=== PATIENT | female | born 1965 | race Caucasian/White ===

== ENCOUNTER 2020-02-18 10:23 | Outpatient (REF) | payer OTHER, SELFPAY ==
[2020-02-18 11:09] LABS: COVID-19 Test Negative (Negative)
== END 2020-02-18 10:24 | disposition home or self-care (01) ==
LOC: HO.LAB 10:23
PROVIDERS: Visit Provider Internal Medicine
DX: Z20.828 Contact with and (suspected) exposure to other viral communicable diseases (principal)
CPT/HCPCS: 87635

== ENCOUNTER 2020-02-22 12:13 | Outpatient (REF) | payer OTHER, SELFPAY | END 2020-02-22 12:14 | disposition home or self-care (01) | LOC: HO.LAB 12:13 | PROVIDERS: Visit Provider Internal Medicine | DX: Z13.89 Encounter for screening for other disorder (principal) ==

== ENCOUNTER 2020-02-24 15:04 | Outpatient (REF) | payer OTHER, SELFPAY ==
[2020-02-24 16:11] LABS: COVID-19 Test Negative (Negative)
== END 2020-02-24 15:05 | disposition home or self-care (01) ==
LOC: HO.LAB 15:04
PROVIDERS: Visit Provider Internal Medicine
DX: Z20.828 Contact with and (suspected) exposure to other viral communicable diseases (principal)
CPT/HCPCS: 87635

== ENCOUNTER 2020-02-26 13:20 | Outpatient (REF) | payer OTHER, SELFPAY | END 2020-02-26 13:21 | disposition home or self-care (01) | LOC: HO.LAB 13:20 | PROVIDERS: Visit Provider Family Medicine | DX: Z11.1 Encounter for screening for respiratory tuberculosis (principal) | CPT/HCPCS: 86481 ==

== ENCOUNTER 2020-02-27 07:34 | Outpatient (REF) | payer OTHER, SELFPAY ==
[2020-02-27 08:11] LABS: COVID-19 Test Negative (Negative)
== END 2020-02-27 07:35 | disposition home or self-care (01) ==
LOC: HO.LAB 07:34
PROVIDERS: Visit Provider Internal Medicine
DX: Z20.828 Contact with and (suspected) exposure to other viral communicable diseases (principal)
CPT/HCPCS: 87635

== ENCOUNTER 2020-04-06 15:05 | Outpatient (REF) | payer OTHER, SELFPAY ==
[2020-04-06 15:30] LABS: COVID-19 Test Negative (Negative); IDNOW Serial# 55D5AD1C
== END 2020-04-06 15:06 | disposition home or self-care (01) ==
LOC: HO.EMPCOV 15:05
PROVIDERS: Visit Provider Internal Medicine
DX: Z20.828 Contact with and (suspected) exposure to other viral communicable diseases (principal)
CPT/HCPCS: 87635; C9803

== ENCOUNTER 2020-04-21 16:39 | Outpatient (REF) | payer OTHER, SELFPAY ==
--- NOTE | 2020-04-21 | XR_ITS ---
EXAMINATION: XR FOOT, LEFT CLINICAL INFORMATION: Contusion. COMPARISON: None TECHNIQUE: AP, lateral, and oblique views of the left foot. FINDINGS: There is an acute fracture of the proximal phalanx of the 5th toe through the diaphyseal metaphyseal junction proximally. There is lateral angulation of the distal fracture fragment with no significant dorsal or ventral angulation. No other fractures are seen. Mild degenerative changes are present at some of the DIP and PIP joints, most marked in the 2nd through 4th digits. XR/XR foot LT min 3V IMPRESSION: Acute fracture proximal phalanx 5th toe. Mild DJD as described above.
== END 2020-04-21 16:40 | disposition home or self-care (01) ==
LOC: HO.XRAY 16:39
PROVIDERS: PCP Nurse Practitioner Primary Care; Visit Provider Nurse Practitioner Primary Care
DX: S90.129A Contusion of unspecified lesser toe(s) without damage to nail, initial encounter (principal)
CPT/HCPCS: 73630

== ENCOUNTER → 2020-04-25 08:58 | Outpatient (BNVA) | payer OTHER, SELFPAY | PROVIDERS: PCP Family Medicine; Visit Provider Physician Assistant | DX: Z76.89 Persons encountering health services in other specified circumstances (principal) ==

== ENCOUNTER 2020-05-13 07:31 | Outpatient (REF) | payer OTHER, SELFPAY ==
[2020-05-13 07:49] LABS: COVID-19 Test Negative (Negative)
== END 2020-05-13 07:32 | disposition home or self-care (01) ==
LOC: HO.EMPCOV 07:31
PROVIDERS: Visit Provider Internal Medicine
DX: Z20.828 Contact with and (suspected) exposure to other viral communicable diseases (principal)
CPT/HCPCS: 36415; 87635; C9803

== ENCOUNTER 2020-05-25 15:23 | Outpatient (REF) | payer OTHER, SELFPAY ==
[2020-05-25 18:23] LABS: TSH reflex Free T4 0.86 mIU/mL (0.32-4.0)
== END 2020-05-25 15:24 | disposition home or self-care (01) ==
LOC: HO.LAB 15:23
PROVIDERS: PCP Family Medicine; Visit Provider Family Medicine
DX: E03.9 Hypothyroidism, unspecified (principal)
CPT/HCPCS: 36415; 84443

== ENCOUNTER → 2020-06-24 15:22 | Outpatient (BNV) | payer OTHER, SELFPAY | PROVIDERS: PCP Family Medicine; Visit Provider Internal Medicine Medical Oncology | DX: C50.911 Malignant neoplasm of unspecified site of right female breast (principal) | CPT/HCPCS: 99213; 99214 ==

== ENCOUNTER 2020-10-25 13:27 | Outpatient (REF) | payer OTHER, SELFPAY ==
--- NOTE | ~2020-10-25 | CT_ITS ---
EXAMINATION: CT CHEST WITHOUT CONTRAST CLINICAL INFORMATION: Pulmonary nodule COMPARISON: Previous chest CT most recent September 2019 and abdominal and pelvic CT scan December 2017 TECHNIQUE: Multidetector volumetric CT imaging of the chest was done. Axial MIP volume rendering provided. Sagittal and coronal reformatted images were obtained. This CT examination was performed using dose optimization techniques as appropriate, variously including the following: *Automated exposure control *Adjustment of mA and/or kV according to patient size (this includes techniques or standardized protocols for targeted exams where dose is matched to indication/reason for exam; i.e. 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 There is increased peripheral reticular markings in the anterior right upper and right middle lobes probably related to previous chest wall radiation. The pulmonary nodules are stable. Largest pulmonary nodule is a 6 mm peripheral or subpleural right lower lobe nodule axial image 212 series 7 and peripheral or subpleural 6 mm left lower lobe nodule axial image 354 series 7. Pulmonary nodule MEDIASTINUM: The mediastinum is normal. PLEURA: There is no pleural effusion. No pleural mass or thickening. AXILLA: There are bilateral breast implants. No chest wall mass or enlarged axillary lymph nodes are seen. UPPER ABDOMEN: There is a small 5 mm low-attenuation lesion in the lateral segment of the left lobe of the liver axial image 64 series 3 that is stable. OSSEOUS STRUCTURES: There is curvature of spine to the right mild degenerative changes. CT/CT chest wo con IMPRESSION: Stable pulmonary nodules.
[2020-10-25 15:25] LABS: MANUAL DIFF FLAG NO
[2020-10-25 15:29] LABS: Basophils Absolute Auto 0.1 X10*3/uL (0.0-0.2); Basophils Percent Auto 1.2 % (0-2); Eosinophils Absolute Auto 0.2 X10*3/uL (0.0-0.4); Eosinophils Percent Auto 3.2 % (0-4); Hematocrit 42.1 % (37-47); Hemoglobin 13.8 g/dl (12.0-16.0); Imm Gran Abs Auto 0.01 X10*3/uL (0.00-0.03); Imm Gran Pct Auto 0.2 % (0.0-0.4); Lymphocytes Absolute Auto 2.1 X10*3/uL (1.2-4.9); Lymphocytes Percent Auto 32.3 % (20-40); Mean Corpuscular HGB Conc 32.8 g/dl (31.0-35.0); Mean Corpuscular Hemoglobin 29.1 pg (27.0-33.0); Mean Corpuscular Volume 88.8 fL (80-98); Mean Platelet Volume 10.7 fL (9.4-12.3); Monocytes Absolute Auto 0.5 X10*3/uL (0.1-1.2); Monocytes Percent Auto 6.9 % (2-11); Neutrophils Absolute Auto 3.7 X10*3/uL (2.0-8.3); Neutrophils Percent Auto 56.2 % (45-73); Platelet Count 208 X10*3/uL (160-400); Red Blood Count 4.74 X10*6/uL (4.20-5.50); Red Cell Distribution Width 12.1 % (11.0-16.0); White Blood Count 6.6 X10*3/uL (4.8-10.8)
[2020-10-25 15:47] LABS: Alanine Aminotransferase 16 U/L (0-31); Albumin Level 4.6 g/dL (3.5-5.0); Alkaline Phosphatase 61 U/L (39-117); Aspartate Amino Transferase 19 U/L (5-31); Bilirubin Total 0.5 mg/dL (0.0-1.0); Blood Urea Nitrogen 14 mg/dL (9-16); Calcium 9.6 mg/dL (8.4-10.2); Estimated Glomerular Filt Rate > 60; Glucose Random 85 mg/dL (60-115)
[2020-10-25 16:00] LABS: Anion Gap 13 (12-20); Carbon Dioxide 26 mmol/L (22-29); Chloride 105 mmol/L (96-108); Sodium 140 mmol/L (135-145)
[2020-10-25 16:10] LABS: Free T4 (Free Thyroxine) 1.13 ng/dL (0.71-1.85); Thyroid Stimulating Hormone 0.66 uIU/mL (0.32-4.0)
[2020-10-26 09:31] LABS: Thyroglobulin Antibodies <1 IU/mL (< or = 1); Thyroid Peroxidase Antibodies <1 IU/mL (<9)
[2020-10-26 18:06] LABS: Immunoglobulin E 34 kU/L (<OR=114)
[2020-10-26 20:07] LABS: Gliadin Deamidated IgA Ab 5 Units; Gliadin Deamidated IgG Ab 1 Units
[2020-10-28 16:41] LABS: Transglutaminase IgA 1 U/mL
[2020-11-02 17:23] LABS: Histamine Release <16 % (<16); TSH 1.15 mIU/L (0.40-4.50); Thyroglobulin Abs <1 IU/mL (< OR = 1)
== END 2020-10-25 13:28 | disposition home or self-care (01) ==
LOC: HO.CT 13:27
PROVIDERS: Absent Provider Nurse Practitioner Family; PCP Family Medicine; Visit Provider Family Medicine
DX: R91.8 Other nonspecific abnormal finding of lung field (principal)
CPT/HCPCS: 36415; 71250; 80053; 82785; 83516; 83520; 84439; 84443; 85025; 86003; 86343; 86376; 86800

== ENCOUNTER 2020-11-04 09:54 | Day surgery (SDC) | payer OTHER, SELFPAY ==
[2020-10-31 10:26] VITALS: BMI 25.0
[2020-10-31 10:38] VITALS: BMI 25.0
--- NOTE | 2020-11-03 12:02 | HO.ANESPROP2 ---
Documented by User: Leena Aleah 11/03/20 12:03 HPI - Anesthesia Eval Consult details Narrative: 54yo F for Colonoscopy PMFSH Active Problems Active Problems: All Active Problems (Updated 10/31/20 @ 10:39 by Juli Varner) Fracture of 5th metatarsal (Acute) Triple negative malignant neoplasm of breast (Acute) Osteoporosis (Acute) Past Medical History Medical History Breast cancer COVID-19 vaccine administered Depression GERD (gastroesophageal reflux disease) History of breast cancer Hypothyroid Surgical History Surgical History H/O colonoscopy History of arthroplasty of left knee History of esophagogastroduodenoscopy (EGD) Hx of appendectomy Hx of bilateral mastectomy Hx of breast reconstruction Hx of cataract extraction Hx of tonsillectomy Social History Social History Are you a primary director of home care hospice to a significant other at home: No Do you presently have visiting nurse or other home services: No Patient Tobacco Use Status: Former Tobacco user Quit Date: 2008 Tobacco use type: Cigarette Use of substances other than those prescribed or required for medical reasons: No Are you DNR?: No Advance Directives Information Provided: No Recently lost weight without trying: No Eating poorly because of decreased appetite: No Nutrition Risks: No Nutritional Risk Patient : No Current occupation: [employer] Meds Allergies Allergy/AdvReac Type Severity Reaction Status Date / Time amoxicillin [AMOXICILLIN] Allergy Intermediate hives/rash Verified 11/04/20 10:47 Penicillins [PENICILLINS] Allergy Intermediate hives/rash Verified 11/04/20 10:47 Home Medications Medication Instructions Recorded Confirmed Last Taken Type albuterol sulfate 90 mcg INHALATION NEEDED 06/24/20 10/31/20 Unknown History budesonide-formoterol [Symbicort] 2 puff INHALATION BID PRN 06/24/20 10/31/20 Unknown History cetirizine 1 tab PO DAILY 06/24/20 07/01/20 Unknown History citalopram 20 mg PO DAILY 06/24/20 10/31/20 Unknown History levothyroxine 1 tab PO DAILY 06/24/20 10/31/20 11/04/20 07:00 History omeprazole 1 cap PO DAILY 0210/31/20 11/04/20 07:00 History trazodone 1 tab PO BEDTIME 06/24/20 10/31/20 Unknown History famotidine 1 tab PO BID 10/31/20 10/31/20 11/04/20 07:00 History loratadine 10 mg PO DAILY 10/31/20 10/31/20 Unknown History Exam Exam Date and Time: November 03, 2020 1202 Height,Weight and Vital Signs: Height 5 ft 7 in Weight 72.575 kg Pertinent Lab Results Pertinent Lab Results: Laboratory Tests 10/25/20 10/25/20 14:55 14:55 WBC 6.6 Hgb 13.8 Hct 42.1 Plt Count 208 Sodium 140 Potassium 4.0 Chloride 105 Carbon Dioxide 26 BUN 14 Creatinine 0.84 Assessment and Plan Assessment Anesthesia Assessment: Chart Reviewed Documented by User: Opal Stout 11/04/20 11:40 PMFSH Past Medical History Medical History Breast cancer COVID-19 vaccine administered Depression GERD (gastroesophageal reflux disease) History of breast cancer Hypothyroid Surgical History Surgical History H/O colonoscopy History of arthroplasty of left knee History of esophagogastroduodenoscopy (EGD) Hx of appendectomy Hx of bilateral mastectomy Hx of breast reconstruction Hx of cataract extraction Hx of tonsillectomy Social History Social History Are you a primary director of home care hospice to a significant other at home: No Do you presently have visiting nurse or other home services: No Patient Tobacco Use Status: Former Tobacco user Quit Date: 2008 Tobacco use type: Cigarette Use of substances other than those prescribed or required for medical reasons: No Are you DNR?: No Advance Directives Information Provided: No Recently lost weight without trying: No Eating poorly because of decreased appetite: No Nutrition Risks: No Nutritional Risk Patient : No Current occupation: [employer] Meds Allergies Allergy/AdvReac Type Severity Reaction Status Date / Time amoxicillin [AMOXICILLIN] Allergy Intermediate hives/rash Verified 11/04/20 10:47 Penicillins [PENICILLINS] Allergy Intermediate hives/rash Verified 11/04/20 10:47 Home Medications Medication Instructions Recorded Confirmed Last Taken Type albuterol sulfate 90 mcg INHALATION NEEDED 06/24/20 10/31/20 Unknown History budesonide-formoterol [Symbicort] 2 puff INHALATION BID PRN 06/24/20 10/31/20 Unknown History cetirizine 1 tab PO DAILY 06/24/20 07/01/20 Unknown History citalopram 20 mg PO DAILY 06/24/20 10/31/20 Unknown History levothyroxine 1 tab PO DAILY 06/24/20 10/31/20 11/04/20 07:00 History omeprazole 1 cap PO DAILY 06/24/20 10/31/20 11/04/20 07:00 History trazodone 1 tab PO BEDTIME 06/24/20 10/31/20 Unknown History famotidine 1 tab PO BID 10/31/20 10/31/20 11/04/20 07:00 History loratadine 10 mg PO DAILY 10/31/20 10/31/20 Unknown History Exam Airway Mallampati Class: I TM Dist: >3cm Neck ROM: Full Loose/Missing/Broken Teeth: No Heart: RRR Lungs: CTA Assessment and Plan Assessment Anesthesia Assessment: Anesthesia Plan Discussed and Chart Reviewed Final Anesthetic Review NPO: Yes ASA Class: II Final Preanesthetic Review: Meds/Allgs Chart Reviewed, Consent Obtained/Reviewed and Anes Risks/Benef Reviewed Patient Risk: Low Procedure Risk: Low Anesthetic Plan Anesthetic Plan: MAC: Disposition: Standard PACU
[2020-11-04 10:47] VITALS: BP 119/69; PULSE 68; RESP 18; TEMP 36.1; O2SAT 98
[2020-11-04] MEDS: Lactated Ringers 1,000 ML 100 ML IVCONT (10:58)
[2020-11-04 12:43] VITALS: BP 97/54; PULSE 61; RESP 14; TEMP 36.1; O2SAT 98
--- NOTE | 2020-11-04 12:43 | P.BOP_ITS ---
Brief Operative Note Date of Service: 11/04/20 Pre-op diagnosis: Rectal bleeding. Hx of tubular adenoma Post-op diagnosis: other (Colon polyp, Internal hemorrhoids) Procedure: Colonoscopy to the cecum and TI with bx/removal of polyp. Surgeon: Kali Neri Anesthesia: MAC Was an Carbon Sequestration Plant Operator used for this Procedure?: No Estimated blood loss (mL): 3.0 Pathology: other (A. Polyp at 30cm) Condition: stable Disposition: PACU
[2020-11-04 12:57] VITALS: BP 118/69; PULSE 58; RESP 16; TEMP 36.1; O2SAT 99
--- NOTE | 2020-11-04 13:04 | OP_ITS ---
SURGEON: Kali Neri MD INDICATIONS: The patient presents for evaluation of personal history of tubular adenoma of the colon and hematochezia. Full consent has been obtained from her for this, including risks of bleeding and perforation. PREOPERATIVE DIAGNOSIS: POSTOPERATIVE DIAGNOSIS: PROCEDURE PERFORMED: Colonoscopy to cecum and terminal ileum with biopsy and removal of polyp. ESTIMATED BLOOD LOSS: COMPLICATIONS: ANESTHESIA: Monitored anesthesia care. ASSISTANTS: SPECIMENS: PREOPERATIVE DIAGNOSES: Personal history of tubular adenoma of the colon and rectal bleeding. POSTOPERATIVE DIAGNOSES: Personal history of tubular adenoma of the colon and rectal bleeding, small colon polyp, occasional sigmoid diverticulosis, and internal hemorrhoids. DESCRIPTION OF PROCEDURE: The digital rectal exam revealed no abnormalities. The Olympus video pediatric colonoscope was entered into the rectum and advanced easily to the cecum. Once in the cecum, I did identify normal-appearing cecal pouch with appendiceal orifice and a normal-appearing ileocecal valve. The terminal ileum was cannulated and appeared normal. Scope was withdrawn back in the colon. The entire cecum and ileocecal valve appeared normal. The scope was then slowly withdrawn assessing all mucosal surfaces carefully. Preparation was excellent. At 30 cm, was a flat approximately 5 mm probable adenomatous polyp, which was biopsied and completely removed with cold biopsy forceps. I did not visualize any other polyps, colitis, nor angiodysplasia. There were occasional diverticula in the sigmoid colon. In the rectum, scope was retroflexed visualizing internal hemorrhoids, but no other pathology. The rectal mucosa appeared normal. The scope was straightened out and withdrawn from the patient. She tolerated the procedure well and was returned to the recovery area in stable condition. IMPRESSION: 1. Small colon polyp, status post biopsy and removal. 2. Internal hemorrhoids. 3. Occasional sigmoid diverticulosis. PLAN: The results of the biopsy will be checked. I would recommend a repeat colonoscopy in 5 years for further screening. She will otherwise see me on a p.r.n. basis. MD SILVIO Marie/MARIPOSA / [phone]
== END 2020-11-04 13:43 | disposition home or self-care (01) ==
PROVIDERS: PCP Family Medicine; Visit Provider Internal Medicine
PROC: 0DJD8ZZ Inspection of Lower Intestinal Tract, Via Natural or Artificial Opening Endoscopic (ICD-10-PCS; CPT 45378; principal; 2020-11-04 10:40)
DX: K92.1 Melena (principal); Z86.010 Personal history of colon polyps; D12.5 Benign neoplasm of sigmoid colon; K57.30 Diverticulosis of large intestine without perforation or abscess without bleeding; K64.8 Other hemorrhoids; K59.00 Constipation, unspecified; K21.9 Gastro-esophageal reflux disease without esophagitis; E03.9 Hypothyroidism, unspecified; Z85.3 Personal history of malignant neoplasm of breast; Z79.899 Other long term (current) drug therapy; Z88.0 Allergy status to penicillin; Z87.891 Personal history of nicotine dependence
CPT/HCPCS: 45380; 88305

== ENCOUNTER 2021-05-18 10:27 | Outpatient (REF) | payer OTHER, SELFPAY ==
--- NOTE | ~2021-05-18 | XR_ITS ---
EXAMINATION: XR CHEST CLINICAL INFORMATION: Chest pain COMPARISON: Previous chest x-ray August [address] October 2020 TECHNIQUE: 2 views of the chest were obtained. FINDINGS: The cardiac and mediastinal contours are stable. The lungs are well inflated. There are increased markings in the right upper lobe that appear unchanged. The lungs are otherwise clear. There is no pleural effusion or pneumothorax. There are bilateral surgical clips. There are mild degenerative changes of the spine and curvature of the proximal thoracic spine to the left. XR/XR chest 2V IMPRESSION: No evidence for acute disease in the chest. Well-inflated lungs. Chronic increased markings right upper lobe similar to previous exams.
[2021-05-18 10:42] LABS: MANUAL DIFF FLAG NO
[2021-05-18 11:29] LABS: Basophils Absolute Auto 0.1 X10*3/uL (0.0-0.2); Basophils Percent Auto 1.2 % (0-2); Eosinophils Absolute Auto 0.2 X10*3/uL (0.0-0.4); Eosinophils Percent Auto 3.4 % (0-4); Hemoglobin 13.3 g/dl (12.0-16.0); Imm Gran Abs Auto 0.02 X10*3/uL (0.00-0.03); Imm Gran Pct Auto 0.3 % (0.0-0.4); Lymphocytes Absolute Auto 2.1 X10*3/uL (1.2-4.9); Lymphocytes Percent Auto 35.7 % (20-40); Mean Corpuscular HGB Conc 32.4 g/dl (31.0-35.0); Mean Corpuscular Hemoglobin 29.2 pg (27.0-33.0); Mean Corpuscular Volume 90.1 fL (80.0-98.0); Mean Platelet Volume 10.4 fL (9.4-12.3); Monocytes Absolute Auto 0.4 X10*3/uL (0.1-1.2); Monocytes Percent Auto 6.7 % (2-11); Neutrophils Absolute Auto 3.1 x10*3/uL (2.0-8.3); Neutrophils Percent Auto 52.7 % (45-73); Platelet Count 229 X10*3/uL (160-400); Red Blood Count 4.55 X10*6/uL (4.20-5.50); White Blood Count 5.9 X10*3/uL (4.8-10.8)
[2021-05-18 12:08] LABS: TSH reflex Free T4 0.89 uIU/mL (0.32-4.0)
[2021-05-18 12:12] LABS: Procalcitonin < 0.02 ng/mL
[2021-05-18 12:16] LABS: Vitamin B12 418 pg/mL (200-900)
== END 2021-05-18 10:28 | disposition home or self-care (01) ==
LOC: HO.XRAY 10:27
PROVIDERS: Absent Provider Family Medicine; PCP Family Medicine; Visit Provider Family Medicine
DX: R07.1 Chest pain on breathing (principal); M79.10 Myalgia, unspecified site; E03.9 Hypothyroidism, unspecified; R53.81 Other malaise; R53.83 Other fatigue
CPT/HCPCS: 36415; 71046; 82607; 84145; 84443; 85025

== ENCOUNTER 2021-06-02 13:54 | Outpatient (REF) | payer OTHER, SELFPAY ==
--- NOTE | ~2021-06-02 | US_ITS ---
EXAMINATION: US DIAGNOSTIC ULTRASOUND BREAST, LEFT CLINICAL INFORMATION: Left breast pain. Status post bilateral mastectomies with bilateral breast implants. COMPARISON: CT scan of 10/25/2020 and breast ultrasound studies of 01/28/2020 and 04/01/2019. TECHNIQUE: Ultrasound of the breast is performed with real-time batres scale imaging and color Doppler. FINDINGS: The patient is status post left breast mastectomy with implant in place. In region of patient's pain, no suspicious cystic or solid mass is identified. There is noted to be a lymph node measuring approximately 1.4 x 0.8 cm in size with mild cortical lobulation which while scanning in real-time is not very prominent. This is similar in appearance to previous examination of 04/01/2019 and 01/28/2020. The cortex is less than 3 mm in diameter. The fatty hilum appears unremarkable. No implant rupture is appreciated. In region of increasing prominence about the anterior skin overlying the implant, there is no abnormal soft tissue mass. Results are discussed with the patient at time of visit. US/US breast LT limited IMPRESSION: No significant change in appearance compared to previous ultrasound studies without suspicious abnormal mass being appreciated. Stable-appearing left axillary lymph node. ASSESSMENT: BI-RADS 1: Negative. RECOMMENDATION: Clinical followup.
== END 2021-06-02 13:55 | disposition home or self-care (01) ==
LOC: HO.MAMMO 13:54
PROVIDERS: PCP Family Medicine; Visit Provider Internal Medicine Medical Oncology
DX: N64.4 Mastodynia (principal); Z85.3 Personal history of malignant neoplasm of breast; Z90.13 Acquired absence of bilateral breasts and nipples; Z98.82 Breast implant status
CPT/HCPCS: 76642

== ENCOUNTER 2021-06-16 12:47 | Outpatient (REF) | payer OTHER, SELFPAY ==
--- NOTE | ~2021-06-16 | US_ITS ---
EXAMINATION: US DIAGNOSTIC ULTRASOUND BREAST, RIGHT CLINICAL INFORMATION: Patient status post bilateral mastectomies with reconstruction with implants. COMPARISON: June 02, 2021. Right breast lump present in the mid breast. TECHNIQUE: Ultrasound of the breast is performed with real-time batres scale imaging and color Doppler. FINDINGS: There is no focal suspicious finding. Implant is noted intact. Region of palpable abnormality appears to correspond to implant valve. Results are discussed with the patient at time of visit. US/US breast RT limited IMPRESSION: No suspicious right breast/implant abnormality. Palpable region appears to correspond to implant valve. ASSESSMENT: BI-RADS 1: Negative RECOMMENDATION: Clinical follow-up.
== END 2021-06-16 12:48 | disposition home or self-care (01) ==
LOC: HO.MAMMO 12:47
PROVIDERS: Absent Provider Plastic Surgery; Visit Provider Internal Medicine Medical Oncology
DX: N63.15 Unspecified lump in the right breast, overlapping quadrants (principal)
CPT/HCPCS: 76642

== ENCOUNTER 2021-11-16 15:34 | Outpatient (REF) | payer OTHER, SELFPAY ==
--- NOTE | ~2021-11-16 | CT_ITS ---
EXAMINATION: CT CHEST WITHOUT CONTRAST CLINICAL INFORMATION: Multiple pulmonary nodules COMPARISON: CT chest 10/25/2020 TECHNIQUE: Multidetector volumetric CT imaging of the chest was done. Axial MIP volume rendering provided. Sagittal and coronal reformatted images were obtained. This CT examination was performed using dose optimization techniques as appropriate, variously including the following: *Automated exposure control *Adjustment of mA and/or kV according to patient size (this includes techniques or standardized protocols for targeted exams where dose is matched to indication/reason for exam; i.e. 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 LUNGS: There are small bilateral anteroapical bullous changes slightly larger on the left. There is mild centrilobular emphysema again prominent in the upper lobes. There are prominent peripheral reticular markings in anterior aspect of right upper lobe and right middle lobe likely related to postradiation changes. There are bilateral pulmonary nodules. The largest 6 mm nodule pleural-based right lower lobe axial image 21/4, 7 mm pleural-based nodule left lower lobe axial image 272/9 and lingular base atelectasis imaged 398/9. MEDIASTINUM: The thyroid lobes are not in the [id number]. Central trachea and the bronchi are normal. Heart size and the great vessels are normal caliber. There is no abnormal size mediastinal or hilar lymph nodes. PLEURA: There is no pleural effusion. No pleural mass or thickening. AXILLA: There are small shotty lymph nodes in the axilla. UPPER ABDOMEN: Visualized liver, spleen and pancreas unremarkable. OSSEOUS STRUCTURES: There is no lytic or sclerotic process seen. CT/CT chest wo con IMPRESSION: Stable bilateral pulmonary nodules. No new nodules seen. Postradiation changes anterior segment right upper lobe and right middle lobe are stable. Fleischner guidelines were followed.
== END 2021-11-16 15:35 | disposition home or self-care (01) ==
LOC: HO.CT 15:34
PROVIDERS: PCP Family Medicine; Visit Provider Family Medicine
DX: R91.8 Other nonspecific abnormal finding of lung field (principal)
CPT/HCPCS: 71250

== ENCOUNTER 2022-01-18 19:00 | Emergency (ER) | payer OTHER, SELFPAY ==
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
--- NOTE | ~2022-01-18 | XR_ITS ---
EXAMINATION: XR KNEE, LEFT XR KNEE, RIGHT CLINICAL INFORMATION: Fall with knee pain COMPARISON: 11/02/2019 TECHNIQUE: 4 views of the left knee. 4 views of the right knee. FINDINGS: Left knee: Tricompartmental medial compartment arthroplasty with intact hardware in appropriate alignment. Chondrocalcinosis at the lateral compartment. No joint effusion. No acute fracture. Right knee: No acute fracture or subluxation. Mild medial compartment joint space narrowing with chondrocalcinosis. Small marginal osteophytes at the patellofemoral compartment. No joint effusion. XR/XR knee LT 4V IMPRESSION: No acute osseous abnormality of either knee. Chondrocalcinosis. Left knee hardware without evidence of failure.
--- NOTE | ~2022-01-18 | XR_ITS ---
EXAMINATION: XR KNEE, LEFT XR KNEE, RIGHT CLINICAL INFORMATION: Fall with knee pain COMPARISON: 11/02/2019 TECHNIQUE: 4 views of the left knee. 4 views of the right knee. FINDINGS: Left knee: Tricompartmental medial compartment arthroplasty with intact hardware in appropriate alignment. Chondrocalcinosis at the lateral compartment. No joint effusion. No acute fracture. Right knee: No acute fracture or subluxation. Mild medial compartment joint space narrowing with chondrocalcinosis. Small marginal osteophytes at the patellofemoral compartment. No joint effusion. XR/XR knee RT 4V IMPRESSION: No acute osseous abnormality of either knee. Chondrocalcinosis. Left knee hardware without evidence of failure.
[2022-01-18] MEDS: Morphine Sulfate 4 MG/ML CARTRIDGE IVPUSH (19:08)
[2022-01-18] MEDS: oxyCODONE HCl Immed Release 5 MG TABLET PO (19:43)
[2022-01-18 19:47] VITALS: BP 123/74; PULSE 71; RESP 18; TEMP 37; O2SAT 96; BMI 26.1
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
== END 2022-01-18 20:53 | disposition home or self-care (01) ==
PROVIDERS: Emergency Provider Emergency Medicine; PCP Family Medicine
DX: S42.301A Unspecified fracture of shaft of humerus, right arm, initial encounter for closed fracture (principal); S89.91XA Unspecified injury of right lower leg, initial encounter; M25.511 Pain in right shoulder; M25.562 Pain in left knee; M25.561 Pain in right knee; Y04.2XXA Assault by strike against or bumped into by another person, initial encounter; Y93.9 Activity, unspecified; Y92.9 Unspecified place or not applicable; Y99.0 Civilian activity done for income or pay; Z79.899 Other long term (current) drug therapy; Z87.891 Personal history of nicotine dependence
CPT/HCPCS: 29105; 29505; 73030; 73564; 96374; 99283; 99284; J2270

== ENCOUNTER → 2022-01-19 13:53 | Outpatient (BNVA) | payer OTHER, SELFPAY | PROVIDERS: PCP Family Medicine; Visit Provider Physician Assistant | DX: Z13.89 Encounter for screening for other disorder (principal) | CPT/HCPCS: 99203 ==

== ENCOUNTER → 2022-01-22 08:55 | Outpatient (BNVA) | payer OTHER, SELFPAY | PROVIDERS: PCP Family Medicine; Visit Provider Orthopaedic Surgery | DX: S42.251A Displaced fracture of greater tuberosity of right humerus, initial encounter for closed fracture (principal) | CPT/HCPCS: 99212 ==

== ENCOUNTER 2022-02-01 16:46 | Outpatient (REF) | payer OTHER, SELFPAY ==
--- NOTE | ~2022-02-01 | XR_ITS ---
EXAMINATION: XR SHOULDER, RIGHT CLINICAL INFORMATION: Follow-up displaced fracture of the greater tuberosity of the proximal right humerus. COMPARISON: Prior radiographs, most recently 01/18/2022. TECHNIQUE: A frontal view of the right shoulder are submitted. FINDINGS: Bony mineralization is normal. A mildly displaced and comminuted fracture is redemonstrated of the greater tuberosity proximal right humerus. Alignment is stable, and there is no new significant callus formation. No dislocation is seen. The glenohumeral joint is intact. The acromioclavicular and coracoclavicular intervals are normal. No soft tissue calcification foreign body is seen. There is no left pneumothorax. There are right axillary surgical clips. XR/XR shoulder RT 1V IMPRESSION: There is stable alignment of a mildly displaced and comminuted fracture of the greater tuberosity of the proximal right humerus. No new significant callus formation is noted.
== END 2022-02-01 16:47 | disposition home or self-care (01) ==
LOC: HO.HOSX 16:46
PROVIDERS: Visit Provider Orthopaedic Surgery
DX: S42.251A Displaced fracture of greater tuberosity of right humerus, initial encounter for closed fracture (principal); X58.XXXA Exposure to other specified factors, initial encounter; Y93.9 Activity, unspecified; Y92.9 Unspecified place or not applicable; Y99.8 Other external cause status
CPT/HCPCS: 73020; 99212

== ENCOUNTER 2022-03-01 08:54 | Outpatient (REF) | payer OTHER, SELFPAY ==
--- NOTE | ~2022-03-01 | XR_ITS ---
EXAMINATION: XR SHOULDER, RIGHT CLINICAL INFORMATION: Shoulder pain COMPARISON: 01/18/2022 and 02/01/2022 TECHNIQUE: Three views of the right shoulder. FINDINGS: Interval increased sclerosis/healing response along the fracture line of the humeral neck. The fracture lucency is become less conspicuous. The slightly comminuted greater tuberosity fragment remains laterally displaced by approximately 0.4 cm, unchanged, and there is early callus formation at fracture margins but no visible solid bridging bone formation between the greater tuberosity and underlying humerus. Alignment is maintained at the glenohumeral and acromioclavicular joints. XR/XR shoulder RT min 2V IMPRESSION: Currently, there is mild, incomplete healing of the comminuted proximal humerus fracture. Alignment is maintained at the glenohumeral and acromioclavicular joints.
== END 2022-03-01 08:55 | disposition home or self-care (01) ==
LOC: HO.HOSX 08:54
PROVIDERS: Visit Provider Orthopaedic Surgery
DX: S42.251D Displaced fracture of greater tuberosity of right humerus, subsequent encounter for fracture with routine healing (principal)
CPT/HCPCS: 73030; 99212

== ENCOUNTER 2022-04-12 11:06 | Outpatient (REF) | payer OTHER, SELFPAY ==
--- NOTE | ~2022-04-12 | XR_ITS ---
EXAMINATION: XR SHOULDER, RIGHT CLINICAL INFORMATION: Pain COMPARISON: Right shoulder 03/01/2022 TECHNIQUE: AP external rotation, Grashey, scapular Y, and axillary views of the right shoulder. FINDINGS: There is a nondisplaced fracture along the greater tuberosity right humerus with very little callus. The glenohumeral joint space is preserved. There is loss of right AC joint space. No additional abnormality seen. XR/XR shoulder RT min 2V IMPRESSION: 1. Nondisplaced fracture greater tuberosity right humerus with very little callus formation. No change from previous exam 02/01/2022. 2. Mild degenerative changes right AC. joint.
== END 2022-04-12 11:07 | disposition home or self-care (01) ==
LOC: HO.HOSX 11:06
PROVIDERS: Visit Provider Orthopaedic Surgery
DX: M25.511 Pain in right shoulder (principal)
CPT/HCPCS: 73030

== ENCOUNTER 2022-05-24 10:40 | Outpatient (REF) | payer OTHER, SELFPAY ==
--- NOTE | ~2022-05-24 | XR_ITS ---
EXAMINATION: XR SHOULDER, RIGHT CLINICAL INFORMATION: Right shoulder pain COMPARISON: 04/12/2022 TECHNIQUE: Three views of the right shoulder. FINDINGS: No change in the appearance or alignment of the comminuted humeral head fracture with appears to be predominantly healed. No malalignment. Mild degenerative findings. XR/XR shoulder RT min 2V IMPRESSION: No change in the appearance or alignment of the comminuted humeral head fracture which is predominantly healed, improved since 03/01/2022. CT could assess for percentage of osseous bridging if indicated.
== END 2022-05-24 10:41 | disposition home or self-care (01) ==
LOC: HO.HOSX 10:40
PROVIDERS: Visit Provider Orthopaedic Surgery
DX: S42.251D Displaced fracture of greater tuberosity of right humerus, subsequent encounter for fracture with routine healing (principal)
CPT/HCPCS: 73030

== ENCOUNTER 2022-06-19 14:42 | Outpatient (REF) | payer OTHER, SELFPAY ==
[2022-06-19 16:15] LABS: Thyroid Stimulating Hormone 1.36 uIU/mL (0.32-4.0)
== END 2022-06-19 14:43 | disposition home or self-care (01) ==
LOC: HO.LAB 14:42
PROVIDERS: PCP Family Medicine; Visit Provider Family Medicine
DX: E03.9 Hypothyroidism, unspecified (principal)
CPT/HCPCS: 36415; 84443

== ENCOUNTER 2022-06-28 16:00 | Outpatient (RCR) | payer OTHER, SELFPAY ==
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
--- NOTE | 2022-02-28 14:24 | MHC.PT.PR ---
[facility] [place] Office [place] Office [place] Office [address] Nelli Montiel [address] [phone] F: [phone] F: [phone] F: [phone] F: [phone] Physical Therapy Progress Note Diagnosis: displaced fx of greater tuberosity R humerus Date of Surgery: Date of Evaluation: 02/15/22 Treatments to Date: 5 Cancellations to Date: 0 No Shows to Date: Subjective: Her lymedema is bothering her more and wrapping around ribs/serratus region. SHe had difficulty sleeping due to this swelling. SHe sees Dr. Root tomorrow Pain Score and Location: 3-4 R shoulder Objective Measures: PROM: ER 18*, ABD 45*, FLEX 78* Assessment: She is making gradual progress in regards to PROM. PROM appears to be most limited by lymphedema exacerbation due to traumatic injury. Due to lypmphedema, asked Kylah Prieto OT,CHT for consult. She recommended that pt would benefit from 'tactile mechanical sequential compression pump' and 'Juxalite arm sleeve with gauntlet with velcro closure to facilitate lymph drainage and assist with return to function. PT Plan: Continue with PT Frequency and Duration: The patient will be seen 2x/week for 6 weeks Treatment Plan: Therapeutic Exercise Dynamic Therapeutic Activities Neuromuscular Re-ed Manual Therapies Taping Home Exercise Program Patient Education Hot or Cold Pack Reviewed/ Agreed with Student Documentation: Therapist: Thank you once again for your referral.
--- NOTE | 2022-08-08 11:19 | MHC.PT.DC ---
[facility] [place] Office [place] Office [place] Office [address] Nelli Montiel [address] [phone] F: [phone] F: [phone] F: [phone] F: [phone] Physical Therapy Discharge Report Diagnosis: displaced fx of greater tuberosity R humerus Date of Surgery: Date of Evaluation: 02/15/22 Date of Discharge: 08/08/22 Treatments to Date: 32 Cancellations to Date: 5 No Shows to Date: Discharge Status: Achieved Goals Improved Function Independent with HEP Discharge Summary: Pt made good progress with PT demonstrating improved shoulder AROM, strength and functional mobility. She is I with HEP and d/c from PT. Electronically signed by: Karina Gibbs PT, DPT Please sign and return to therapist. Thank you for your referral.
== END 2022-08-08 11:20 | disposition home or self-care (01) ==
LOC: HO.PT 16:00
PROVIDERS: Visit Provider Orthopaedic Surgery
DX: S42.251D Displaced fracture of greater tuberosity of right humerus, subsequent encounter for fracture with routine healing (principal)
CPT/HCPCS: 97110; 97140; 97161; 97530

== ENCOUNTER → 2022-07-05 14:44 | Outpatient (BNVA) | payer OTHER, SELFPAY | PROVIDERS: PCP Family Medicine; Visit Provider Orthopaedic Surgery | DX: Z13.89 Encounter for screening for other disorder (principal) ==

== ENCOUNTER 2022-10-16 14:02 | Outpatient (REF) | payer OTHER, SELFPAY ==
[2022-10-16 16:45] LABS: Urine Cytology See Pathology rpt
== END 2022-10-16 14:03 | disposition home or self-care (01) ==
LOC: HO.LNP 14:02
PROVIDERS: PCP Family Medicine; Visit Provider Nurse Practitioner Family
DX: R31.29 Other microscopic hematuria (principal); R32 Unspecified urinary incontinence; R39.89 Other symptoms and signs involving the genitourinary system; R39.15 Urgency of urination; N32.81 Overactive bladder; R35.1 Nocturia; Z92.21 Personal history of antineoplastic chemotherapy; Z92.3 Personal history of irradiation; Z79.899 Other long term (current) drug therapy
CPT/HCPCS: 51798; 88112

== ENCOUNTER 2022-10-19 08:17 | Outpatient (REF) | payer OTHER, SELFPAY ==
[2022-10-19 11:54] LABS: Blood Urea Nitrogen 17 mg/dL (9-16); Estimated Glomerular Filt Rate > 60
== END 2022-10-19 08:18 | disposition home or self-care (01) ==
LOC: HO.HMGCLDS 08:17
PROVIDERS: PCP Family Medicine; Visit Provider Nurse Practitioner Family
DX: R39.15 Urgency of urination (principal)
CPT/HCPCS: 36415; 82565; 84520

== ENCOUNTER 2022-10-22 14:29 | Outpatient (REF) | payer OTHER, SELFPAY ==
--- NOTE | ~2022-10-22 | CT_ITS ---
EXAMINATION: CT ABDOMEN AND PELVIS WITHOUT AND WITH CONTRAST CLINICAL INFORMATION: Microscopic hematuria COMPARISON: Chest CT November 2021 and abdominal and pelvic CT December 2017 TECHNIQUE: Noncontrast CT of the abdomen and pelvis is performed followed by split bolus contrast-enhanced images using 85 mL Omnipaque 350 contrast.? Postcontrast imaging is performed during the combined nephrogram and excretion phase. Sagittal and coronal reformatted images were obtained on the technologist's workstation for both the precontrast and postcontrast phases. This CT examination was performed using dose optimization techniques as appropriate, variously including the following: *Automated exposure control *Adjustment of mA and/or kV according to patient size (this includes techniques or standardized protocols for targeted exams where dose is matched to indication/reason for exam; i.e. extremities or head) *Use of iterative reconstruction technique DLP: 931 mGy-cm FINDINGS: LUNG BASES: Small peripheral or subpleural left lower lobe nodule measuring 5 mm axial image 5 series 9. This is slightly increased from 3 [address] Bilateral breast implants. LIVER, GALLBLADDER, AND BILIARY TREE: The liver is normal in size, shape, and attenuation. Small 1 cm low-attenuation lesion in the lateral segment of the left lobe liver probably representing a cyst. No other focal liver lesion. No biliary ductal dilatation is present. The gallbladder is unremarkable with no evidence of radiopaque gallstones, gallbladder wall thickening, or obvious pericholecystic inflammatory changes. PANCREAS: Unremarkable. SPLEEN: Unremarkable. ADRENAL GLANDS: Unremarkable. KIDNEYS AND URETERS: The kidneys are normal in size, shape, and attenuation. No hydronephrosis, hydroureter, or calculi seen. No perinephric stranding. Left renal peripelvic cysts. No imaging follow-up recommended. The collecting systems are normal. The ureters are normal. BLADDER: Normal. GASTROINTESTINAL TRACT: The small and large bowel are unremarkable. The appendix is not seen. Question mild wall thickening of the distal thoracic esophagus. ABDOMINAL WALL: Small umbilical hernia containing fat. LYMPH NODES: Normal. VASCULAR: Unremarkable. PELVIC VISCERA: Unremarkable. OSSEUS STRUCTURES: Unremarkable. CT/CT urogram IMPRESSION: No cause of hematuria seen. Small liver cyst. Question mild wall thickening of the distal thoracic esophagus. 5 mm peripheral or subpleural left lower lobe nodule. This is increased in size from previous chest CT November 2021. Follow-up chest CT should be considered.
[2022-10-22] MEDS: iohexoL 350 MG/ML 100 ML INFUS..BTL 85 ML IV (16:22)
== END 2022-10-22 14:30 | disposition home or self-care (01) ==
LOC: HO.CT 14:29
PROVIDERS: PCP Family Medicine; Visit Provider Nurse Practitioner Family
DX: R31.29 Other microscopic hematuria (principal); R32 Unspecified urinary incontinence
CPT/HCPCS: 74178; Q9967

== ENCOUNTER → 2022-11-07 14:23 | Outpatient (BNVA) | payer OTHER, SELFPAY | PROVIDERS: PCP Family Medicine; Visit Provider Urology | DX: R31.29 Other microscopic hematuria (principal); R39.89 Other symptoms and signs involving the genitourinary system; N39.41 Urge incontinence; N95.2 Postmenopausal atrophic vaginitis; N32.81 Overactive bladder | CPT/HCPCS: 52000 ==

== ENCOUNTER 2022-11-27 07:22 | Outpatient (REF) | payer OTHER, SELFPAY ==
--- NOTE | ~2022-11-27 | CT_ITS ---
EXAMINATION: CT CHEST WITHOUT CONTRAST CLINICAL INFORMATION: Pulmonary nodule. History of breast carcinoma. COMPARISON: CT urogram from 10/22/2022. Chest CT from 10/25/2020 and 11/16/2021. TECHNIQUE: Multidetector volumetric CT imaging of the chest was done. Axial MIP volume rendering provided. Sagittal and coronal reformatted images were obtained. This CT examination was performed using dose optimization techniques as appropriate, variously including the following: *Automated exposure control *Adjustment of mA and/or kV according to patient size (this includes techniques or standardized protocols for targeted exams where dose is matched to indication/reason for exam; i.e. extremities or head) *Use of iterative reconstruction technique DLP: 125 mGy-cm FINDINGS: LUNGS AND PLEURA: Mild centrilobular and paraseptal emphysema. The chronic stable opacity in the anterior right lung apex requires clinical correlation; this could represent old changes of fibrosis/pneumonitis from radiation therapy to the right upper lung and/or breast. An old 0.2 cm calcified granuloma is present in the right apex (73, series 5). The areas of mild pleural thickening of the anterior right lung remain unchanged and are likely sequela of the suspected prior radiation therapy. 0.4 cm solid right lower lobe nodule is unchanged (209, series 5). Also, the solid, noncalcified pleural-based nodules of the lower lobes are unchanged (168 and 281, series 5). No new pulmonary nodule or mass. No pleural effusion. CARDIOVASCULAR: Cardiac chambers, pulmonary arteries and thoracic aorta are normal in size. Mild atherosclerotic calcification of the thoracic aorta is present. No pericardial effusion. CORONARY ARTERY CALCIFICATION: None detected. MEDIASTINUM AND LOWER NECK: No mediastinal mass. The esophagus is unremarkable. Thyroid gland appears to be chronically atrophied. LYMPHATICS: No pathologic sized lymph nodes. UPPER ABDOMEN: Small simple cyst is present in the left lobe of the liver. Adrenal glands are normal. SKELETAL AND CHEST WALL: Bones appear to be diffusely osteopenic. There is levoscoliosis of the cervical and upper thoracic spine. Mild multilevel discovertebral degenerative change of the visualized spine. Old healed fracture of the proximal right humerus. CT/CT chest wo IV con IMPRESSION: * No acute imaging abnormalities within the chest compared to 10/25/2020 and 11/16/2021. * A few old stable pulmonary and pleural-based nodules are present. No new nodules. * Mild pulmonary emphysema.
== END 2022-11-27 07:23 | disposition home or self-care (01) ==
LOC: HO.CT 07:22
PROVIDERS: PCP Family Medicine; Visit Provider Internal Medicine Medical Oncology
DX: R91.1 Solitary pulmonary nodule (principal)
CPT/HCPCS: 71250

== ENCOUNTER 2022-11-30 19:37 | Emergency (ER) | payer OTHER, SELFPAY ==
--- NOTE | ~2022-11-30 | XR_ITS ---
EXAMINATION: XR WRIST, LEFT CLINICAL INFORMATION: Deformity COMPARISON: None available. TECHNIQUE: PA, lateral, and oblique views of the left wrist. FINDINGS: Comminuted impacted angulated intra-articular fracture of the distal radius, mildly displaced fracture of ulnar styloid, intercarpal and carpometacarpal joints are intact. Surrounding soft tissue swelling. XR/XR wrist LT 2V IMPRESSION: * Comminuted impacted angulated intra-articular fracture of the distal radius. * Mildly displaced fracture of the ulnar styloid.
--- NOTE | ~2022-11-30 | XR_ITS ---
EXAMINATION: XR WRIST, LEFT CLINICAL INFORMATION: Post reduction COMPARISON: Same day study TECHNIQUE: Single image of the left wrist. FINDINGS: Limited single image demonstrates once again fracture in the distal radius and ulnar styloid. There does appear to be better approximation of these radial fractures but only a single image is submitted XR/XR wrist LT 2V IMPRESSION: Limited evaluation. Single image. There does appear to be better approximation of the distal radial fracture fragments
[2022-11-30 19:48] VITALS: BP 147/90; PULSE 86; O2SAT 97
--- NOTE | 2022-11-30 19:49 | ED.GENADULT ---
HPI - General Adult General Chief complaint: Fall Stated complaint: dislocated/Fx L wrist Time Seen by Provider: 11/30/22 19:56 Source: patient, family (patient's ) and EMS Mode of arrival: EMS Limitations: no limitations History of Present Illness HPI narrative: Patient is a 56 year old assigned female at with a history of osteoporosis presenting to the emergency department today with left wrist pain. Patient states that she slipped on water and landed on her left wrist. Patient denies hitting her head or any loss of consciousness. Patient denies any dizziness, lightheadedness, abdominal pain, nausea, vomiting, fever, chills, blurry vision, double vision, loss of vision, chest pain, difficulty breathing, shortness of breath, back pain, night sweats, pain with urination, increased urinary frequency, increased urinary urgency, blood in her urine or stool, syncope or a near syncopal episode, bowel incontinence, bladder incontinence, bowel retention, bladder retention, or any other complaints at this time. Onset (ago): minute(s) Location: left and upper extremity Radiation: non-radiation Severity: moderate Severity scale (1-10): 6 Quality: aching and dull Pain Consistency: constant Relieving factors: none Exacerbating factors: movement Associated symptoms: denies other symptoms Treatments prior to arrival: none Related Data Home Medications Medication Instructions Recorded Confirmed albuterol sulfate 90 mcg/actuation 90 mcg inhalation NEEDED 06/24/20 11/20/22 aerosol inhaler bronchospasm budesonide-formoterol HFA 160 2 puff inhalation BID PRN Wheezing 06/24/20 11/20/22 mcg-4.5 mcg/actuation aerosol inhaler (Symbicort) cetirizine 10 mg tablet 1 tab PO DAILY 06/24/20 11/20/22 citalopram 10 mg tablet 20 mg PO DAILY 06/24/20 11/20/22 levothyroxine 75 mcg tablet 1 tab PO DAILY 06/24/20 11/20/22 omeprazole 20 mg capsule,delayed 1 cap PO DAILY 06/24/20 11/20/22 release trazodone 50 mg tablet 1 tab PO BEDTIME 06/24/20 11/20/22 omalizumab 150 mg/mL subcutaneous 150 mg subcut Q2W 12/16/20 11/20/22 syringe (Xolair) Previous Rx's Medication Instructions Recorded denosumab 60 mg/mL subcutaneous 60 mg subcut [id number] #1 mL 06/07/22 syringe mirabegron 50 mg tablet,extended 50 mg PO DAILY #90 tabs 11/07/22 release 24 hr (Myrbetriq) cefuroxime axetil 250 mg tablet 250 mg PO BID 10 days #20 tabs 11/28/22 Allergies Allergy/AdvReac Type Severity Reaction Status Date / Time amoxicillin [AMOXICILLIN] Allergy Intermediate hives/rash Verified 11/30/22 20:02 Penicillins [PENICILLINS] Allergy Intermediate hives/rash Verified 11/30/22 20:02 Review of Systems Constitutional: Constitutional: Reports no additional constitutional complaints, Denies chills, Denies fever(s) and Denies night sweats Eyes: Eyes: Reports no additional eye complaints, Denies blurry vision, Denies change in vision, Denies diplopia, Denies eye discharge, Denies loss of vision and Denies eye pain ENT: Denies dizziness Cardiovascular: Cardiovascular: Reports no additional cardiovascular complaints, Denies chest pain, Denies lightheadedness, Denies Loss of Consciousness and Denies dyspnea Respiratory: Respiratory: Reports no additional respiratory complaints and Denies dyspnea Gastrointestinal: Gastrointestinal: Reports no additional gastrointestinal complaints, Denies abdominal pain, Denies melena, Denies hematochezia, Denies change in bowel habits and Denies change in stool character Genitourinary: Genitourinary: Denies hematuria, Denies urinary frequency, Denies dysuria, Denies urinary incontinence, Denies urinary hesitancy and Denies urinary urgency Musculoskeletal: Musculoskeletal: Reports no additional musculoskeletal complaints, Denies numbness and Denies tingling Comments: left wrist pain Neurologic: Denies dizziness, Denies loss of vision, Denies numbness and Denies tingling Psychiatric: Psychiatric: Reports no additional psychiatric complaints Endocrine: Endocrine: Reports no additional endocrine complaints Hematologic/Lymphatic: Hematologic/Lymphatic: Reports no additional hematologic/lymphatic complaints Allergic/Immunologic: Allergic/Immunologic: Reports no additional allergic/immunologic complaints PMFSH Past Medical History Attestation statement: The following information was validated with the patient. Source: old records reviewed, obtained from family (patient's provided additional history and confirmed the history provided by the patient.) and nursing notes reviewed Medical History Breast cancer COVID-19 vaccine administered Depression Fracture of 5th metatarsal Fracture of greater tuberosity of right humerus GERD (gastroesophageal reflux disease) History of breast cancer Hypothyroid Surgical History H/O colonoscopy History of arthroplasty of left knee History of esophagogastroduodenoscopy (EGD) Hx of appendectomy Hx of bilateral mastectomy Hx of breast reconstruction Hx of cataract extraction Hx of tonsillectomy Family History Family History Other No family history of cancer Social History Social History Household Members: Significant Other Housing: Apartment Are you a primary rn care transition to a significant other at home: No Do you presently have visiting nurse or other home services: No Patient Tobacco Use Status: Former Tobacco user Quit Date: 2008 Tobacco use type: Cigarette Advance Directives: No Advance Directives Information Provided: Yes service: No Current occupational status: employed 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 Physical Exam ED Vital Signs: Vital Signs - 24 hr 11/30/22 20:02 11/30/22 23:37 12/01/22 00:24 Temperature 98.1 F 98.1 F Pulse Rate 81 73 101 H Respiratory Rate 19 15 19 Blood Pressure 143/75 H 151/86 H Pulse Oximetry 95 97 99 Oxygen Delivery Method Room Air 12/01/22 00:02 12/01/22 00:08 12/01/22 00:13 Temperature Pulse Rate 86 114 H 111 H Respiratory Rate 16 17 19 Blood Pressure 172/89 H Pulse Oximetry 100 100 98 Oxygen Delivery Method 12/01/22 00:19 12/01/22 00:21 12/01/22 00:28 Temperature Pulse Rate 105 H 103 H 99 Respiratory Rate 19 19 19 Blood Pressure 166/69 H Pulse Oximetry 98 99 98 Oxygen Delivery Method 12/01/22 00:33 12/01/22 00:35 Temperature Pulse Rate 96 96 Respiratory Rate 15 16 Blood Pressure 145/69 H 145/69 H Pulse Oximetry 98 98 Oxygen Delivery Method BMI result Body Mass Index 27.3 Const General: cooperative, no acute distress, alert and awake Nutritional Appearance: well nourished Orientation/consciousness: patient oriented x3 Limitations: no limitations HENMT Head: Yes normal to inspection and Yes atraumatic Ears: hearing grossly normal bilaterally and external ears normal General nose exam: Normal external nose present, no nasal discharge noted and no epistaxis Face and sinus: Yes normal facial exam, No abrasion and No laceration Mouth: Normal oral and palatal mucosa present, no drooling and no muffled voice Eyes General: appearance normal, both eyes and all related structures Periorbital: periorbital findings normal Eyelids: Yes eyelids normal Conjunctivae: conjunctivae normal Pupils: Equal, round and reactive pupils present EOM: EOMs intact bilaterally Neck Neck: Yes normal visual inspection, Yes full ROM and Yes no lymphadenopathy Chest Chest palpation & inspection: normal inspection of the chest Resp Effort & Inspection: normal respiratory effort and able to speak in complete sentences GI Inspection: Yes normal to inspection Neuro General: patient oriented x3 and moves all extremities Cranial nerves: Yes Equal, round and reactive pupils present Cognition (Neuro): normal cognition Motor exam (neuro): 5/5 motor strength present throughout Sensory Exam: Normal double simultaneous stimulation for sensation Coordination: [id number] test normal Extrem Other: General: Yes capillary refill normal Psych Appearance: grossly normal Mental Status: mental status grossly normal Affect: normal affect Attitude: cooperative Thought process: Normal thought process present Thought content: Normal thought content present Insight: Good insight present (Psych) Medications Administered Discontinued Medications Generic Name Dose Route Start Last Admin Trade Name Jason PRN Reason Stop Dose Admin Fentanyl 25 mcg 11/30/22 20:27 11/30/22 20:44 Fentanyl Citrate/Pf 100 Mcg/2 Ml Vial IVPUSH 11/30/22 20:28 25 mcg ONCE ONE Administration Protocol Ketamine HCl 160 mg 11/30/22 22:30 11/30/22 23:54 Ketamine Hcl/Ns 50 Mg/5 Ml Syringe IVPUSH 11/30/22 22:31 160 mg ONCE ONE Administration Lidocaine HCl 5 ml 11/30/22 20:27 11/30/22 23:53 Lidocaine Hcl 1 % Mpf 5 Ml Vial SUBCUT 11/30/22 20:28 5 ml ONCE ONE Administration Procedures Orthopedic Fracture Reduction Fracture #1: Time Out Performed: Yes Side: left Fracture Reduction Location: radius and ulna Analgesia: procedural sedation and hematoma block Technique: direct manipulation and traction/counter-traction Post Reduction X-rays Demonstrate: acceptable reduction Post-reduction neuro exam: intact Post-reduction vascular exam: intact Splint Applied: Yes Patient Tolerated Procedure: well Orthopedic Splinting/Casting Injury #1: Side: left Upper Extremity Injury Location: wrist Upper Extremity Immobilizer: sling/shoulder immobilizer and sugar tong splint Procedural Sedation Indication: fracture/dislocation reduction ASA Class: II Mallampati Class: II Time of Last PO Intake: 18:00 Preparation: cardiac monitor technician applied, pulse oximeter, capnometry used, supplemental O2 applied, suction/airway equipment at bedside and IV secured Ketamine: IV Ketamine dose (mg): 210 Patient Tolerated Procedure: well Complications: none Medical Decision Making Medical Decision Making [facility] Narrative: Patient is a 56 year old assigned female at with a history of GERD, depression, and hypothyroidism presenting to the emergency department today with left wrist pain. Patient's physical exam showed an obviously deformed left wrist however, patient's PMS was intact to the left upper extremity. Patient's left wrist x-ray showed a comminuted impacted angulated intra-articular fracture of the distal radius, mildly displaced fracture of the ulnar styloid. I consulted with the orthopedic team who recommended reduction of the fracture, sugar tong splint with sling, and follow up early next week to discuss surgical options. I explained my physical exam findings as well as all test results to the patient and the patient's . I answered all questions asked by the patient and the patient's . Patient agreed to conscious sedation for reduction of the fracture. I applied a hematoma block to the area before the patient was sedated. Patient was sedated, with Dr. Mata at the bed side, per procedure note, without incident. Patient's fracture was reduced and splinted successfully. Patient's PMS was intact prior to and after reduction and splint placement. Patient's post-procedure x-ray showed a reduction of the injury. I stressed the importance of the patient taking her medication as prescribed. I stressed the importance of the patient following up with her primary care provider and an orthopedic provider. I stressed the importance of the patient returning to the emergency department immediately if her symptoms were to worsen or if she were to develop any dizziness, shortness of breath, difficulty breathing, chest pain, blurry vision, loss of vision, nausea, vomiting, abdominal pain, fever, chills, back pain, or any other complaints. Patient and the patient's verbalized agreement and understanding with this treatment plan and discharge. Differential Diagnosis Differential Diagnoses: The differential diagnosis associated with the presentation includes Left wrist fracture Consult Healthcare Provider Management of the patient was discussed with: Iv Technician (consulted with the orthopedic team as noted in the MDM portion of this chart.) Independent Interpretation I performed an independent interpretation of an: Plain X-Ray Interpretation: My interpretation is in agreement with the radiologist's impression of these imaging studies. EXAMINATION: XR WRIST, LEFT CLINICAL INFORMATION: Deformity? COMPARISON: None available.? TECHNIQUE: PA, lateral, and oblique views of the left wrist. FINDINGS: Comminuted impacted angulated intra-articular fracture of the distal radius, mildly displaced fracture of ulnar styloid, intercarpal and carpometacarpal joints are intact. Surrounding soft tissue swelling.? XR/XR wrist LT 2V IMPRESSION: ? *? Comminuted impacted angulated intra-articular fracture of the distal radius. ? *? Mildly displaced fracture of the ulnar styloid. Dictated By: Chalino Joyner MD Signed By: Electronically signed by Chalino Joyner MD 11/30/22 [id number] EXAMINATION: XR WRIST, LEFT CLINICAL INFORMATION: Post reduction? COMPARISON: Same day study? TECHNIQUE: Single image of the left wrist. FINDINGS: Limited single image demonstrates once again fracture in the distal radius and ulnar styloid. There does appear to be better approximation of these radial fractures but only a single image is submitted? XR/XR wrist LT 2V IMPRESSION: Limited evaluation. Single image. There does appear to be better approximation of the distal radial fracture fragments ? Dictated By: Boo Salguero MD Signed By: Electronically signed by Boo Salguero MD 12/01/22 0038 Radiology Impression Discussion of test interpretation with radiology: I have reviewed the radiologist's reading. Independent Historian Clinical information obtained from an independent historian. History obtained from or confirmed by: Spouse (patient's provided additional history and confirmed the history provided by the patient.) and EMS (EMS provided additional history and confirmed the history provided by the patient.) Critical Care Time Critical Care Time Critical Care Time: Yes Total Critical Care Time: 45 Attestation: I spent 45 minutes of Critical Care Time with this patient. This does not include time spent on separately reported billable procedures. Discharge Plan Discharge Clinical Impression: Fracture of wrist Patient Disposition: Home, Self-Care Instructions: Wrist Fracture in Adults (ED) Additional Instructions: Follow up with your primary care provider and an orthopedic provider. Return to the emergency department immediately if your symptoms worsen or if you develop any dizziness, shortness of breath, difficulty breathing, chest pain, blurry vision, loss of vision, nausea, vomiting, abdominal pain, fever, chills, back pain, or any other complaints. Prescriptions: No Action cefuroxime axetil 250 mg tablet 250 mg PO BID 10 Days Qty: 20 0RF trazodone 50 mg tablet 1 tab PO BEDTIME cetirizine 10 mg tablet 1 tab PO DAILY citalopram 10 mg tablet 20 mg PO DAILY levothyroxine 75 mcg tablet 1 tab PO DAILY omeprazole 20 mg capsule,delayed release(DR/EC) 1 cap PO DAILY albuterol sulfate 90 mcg/actuation HFA aerosol inhaler 90 mcg inhalation NEEDED budesonide-formoterol [Symbicort] 160-4.5 mcg/actuation HFA aerosol inhaler 2 puff inhalation BID PRN (Reason: Wheezing) Xolair 150 mg/mL Syringe 150 mg SUBCUT Q2W denosumab 60 mg/mL Syringe 60 mg SUBCUT [id number] Qty: 1 1RF Myrbetriq 50 mg tablet extended release 24 hr 50 mg PO DAILY Qty: 90 1RF Ref[place]: [facility] [place] [facility] [place]] (Call to establish and follow up with a primary care provider. If you already have a primary care provider, please follow up with them.) [facility] [place] [facility] [place]Provider Group] (Call to establish and follow up with a primary care provider. If you already have a primary care provider, please follow up with them.) [facility] [place] [facility] [Provider Group] (Call to establish and follow up with a primary care provider. If you already have a primary care provider, please follow up with them.) [facility] [place] [facility] [Provider Group] (Call to establish and follow up with an orthopedic provider.) Print Language: Telugu
[2022-11-30 20:02] VITALS: BP 143/75; PULSE 81; RESP 19; TEMP 36.7; O2SAT 95; BMI 27.3
[2022-11-30] MEDS: fentaNYL citrate/PF 100 MCG/2 ML VIAL 25 MCG IVPUSH (20:44)
[2022-11-30 23:37] VITALS: PULSE 73; RESP 15; TEMP 36.7; O2SAT 97
[2022-11-30] MEDS: Lidocaine HCl 1 % MPF 5 ML VIAL SUBCUT (23:53)
[2022-11-30] MEDS: Ketamine HCl/NS 50 MG/5 ML SYRINGE 160 MG IVPUSH (23:54)
[2022-12-01] VITALS (15 sets, daily range): BP systolic 105–172; BP diastolic 59–89; PULSE 62–114; RESP 14–19; TEMP 36.8; O2SAT 94–100
[2022-12-01] MEDS: Ketamine HCl/NS 50 MG/5 ML SYRINGE 80 MG IVPUSH (03:15)
--- NOTE | 2022-12-01 03:16 | PC.NURSE ---
THIS RN DID NOT ADMINISTER SENSORCAINE, OR WITHDRAW IT FROM PYXSIS THEREFORE UNABLE TO SCAN MEDICATION AND THERESA GIVEN. WILL DISCUSS WITH PREVIOUS RN
[2022-12-01] MEDS: Morphine Sulfate 4 MG/ML CARTRIDGE IVPUSH (06:12)
[2022-12-01] MEDS: ondansetron HCL 4 MG/2 ML VIAL IVPUSH (06:12)
== END 2022-12-01 07:34 | disposition home or self-care (01) ==
PROVIDERS: Emergency Provider Emergency Medicine
DX: S62.102A Fracture of unspecified carpal bone, left wrist, initial encounter for closed fracture (principal); M25.532 Pain in left wrist; W01.10XA Fall on same level from slipping, tripping and stumbling with subsequent striking against unspecified object, initial encounter; Y93.9 Activity, unspecified; Y92.9 Unspecified place or not applicable; Y99.9 Unspecified external cause status; Z79.899 Other long term (current) drug therapy
CPT/HCPCS: 73100; 96374; 96375; 96376; 99284; 99285; J2270; J2405; J3010

== ENCOUNTER 2022-12-03 11:33 | Outpatient (REF) | payer OTHER, SELFPAY ==
--- NOTE | ~2022-12-03 | XR_ITS ---
EXAMINATION: XR WRIST, LEFT CLINICAL INFORMATION: Pain COMPARISON: Left wrist radiograph from 11/30/2022 and 12/01/2022 TECHNIQUE: PA, lateral, and oblique views of the left wrist. FINDINGS: Interval casting of a comminuted impacted intra-articular distal radial fracture and ulnar distorted fracture. Overlying cast sutures fine osseous and soft tissue detail. Joint spaces and alignment otherwise maintained. Soft tissue prominence about the fracture site. XR/XR wrist LT min 3V IMPRESSION: 1. Interval casting of a comminuted impacted intra-articular distal radial fracture and ulnar distorted fracture. 2. Overlying cast sutures fine osseous and soft tissue detail. 3. Soft tissue prominence about the fracture site.
== END 2022-12-03 11:34 | disposition home or self-care (01) ==
LOC: HO.HOSX 11:33
PROVIDERS: Visit Provider Physician Assistant
DX: S52.502D Unspecified fracture of the lower end of left radius, subsequent encounter for closed fracture with routine healing (principal); W01.0XXA Fall on same level from slipping, tripping and stumbling without subsequent striking against object, initial encounter; Y93.9 Activity, unspecified; Y92.9 Unspecified place or not applicable; Y99.9 Unspecified external cause status; Z87.81 Personal history of (healed) traumatic fracture
CPT/HCPCS: 73110

== ENCOUNTER 2022-12-03 12:22 | Outpatient (AMB) | payer OTHER, SELFPAY ==
--- NOTE | 2022-12-03 12:28 | A.OFFVIS_ITS ---
Intake Vital Signs 12/03/22 12:37 Height 5 ft 6 in Weight 169 lb BMI 27.3 Handedness Right Intake Visit Reasons: OV-F/U - Right Humerus Fx - 01/18/22 Intake Note: Vanesa is a 56 year old right hand dominant female who presents today for a fracture care appointment for her left wrist fx, DOI 11/30/22. Patient reports s he slipped and fell landing on her wrist. She states her pain is a 4 or 5/10 on a pain scale. She has noticed that her fingers are swollen. Denies numbness and tingling. Allergies amoxicillin [AMOXICILLIN] Allergy (Intermediate, Verified 12/03/22 12:37) hives/rash Penicillins [PENICILLINS] Allergy (Intermediate, Verified 12/03/22 12:37) hives/rash HPI OV-F/U - Right Humerus Fx - 01/18/22 HPI Details Ms. Oglesby is a 56yo right hand dominant female who presents ot the office today for evaluation of left wrist distal radius and ulnar styloid fx, DOI 11/30/22. Patient reports she tripped and fell landing on an outstretched hand. She states her pain is a 4 or 5/10 on a pain scale. She has noticed that her fingers are swollen. Denies numbness and tingling. PFSH Medical History Breast cancer COVID-19 vaccine administered Depression Fracture of 5th metatarsal Fracture of greater tuberosity of right humerus GERD (gastroesophageal reflux disease) History of breast cancer Hypothyroid Surgical History H/O colonoscopy History of arthroplasty of left knee History of esophagogastroduodenoscopy (EGD) Hx of appendectomy Hx of bilateral mastectomy Hx of breast reconstruction Hx of cataract extraction Hx of tonsillectomy Family History Other No family history of cancer Social History Household Members: Significant Other Housing: Apartment Are you a primary residential care facility manager to a significant other at home: No Do you presently have visiting nurse or other home services: No Alcohol intake: never Patient Tobacco Use Status: Former Tobacco user Quit Date: 2008 Tobacco use type: Cigarette service: No Current occupational status: employed 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 Sensation intact. Edema present in all digits. Sugar tong splint remained in place for exam due to instability. Office Procedures Fracture Care Fracture Billing Code: Fracture Billing Code Assessment & Plan Assessment & Plan (1) Distal radius fracture, left: Code(s): S52.502A - Unspecified fracture of the lower end of left radius, initial encounter for closed fracture Plan Ms. Oglesby is a 56yo right hand dominant female who presents ot the office today for evaluation of left wrist distal radius and ulnar styloid fx, DOI 11/30/22. Patient reports she tripped and fell landing on an outstretched hand. She states her pain is a 4 or 5/10 on a pain scale. She has noticed that her fingers are swollen. Denies numbness and tingling. She remains in the sugar tong splint from the ED. I discussed the case with Dr. Powers and explained the extent of the injury to the patient and options available which include surgical intervention. I explained the procedure in detail along with the length of recovery and rehab course. I explained the risk, benefits and alternatives. Risk including, but not limited to infection, blood clots, bleeding, non union or malunion and nerve/tissue damage to surrounding areas. I answered all their questions and with their understanding they have consented to move forward with open vs. closed reduction internal fixation of t he left wrist. The plan is to proceed with surgery 12/06/22. Orders: Orders XR wrist LT min 3V Today M25.539 - Pain in unspecified wrist Coding Level of Care Code Est Pt Level 4 (47589) Diagnoses Distal radius fracture, left S52.502A CPT Codes Fracture Care - Fracture Billing Code: Fracture Billing Code ([id number])
[2022-12-03 12:37] VITALS: BMI 27.3
== END 2022-12-03 13:16 | disposition home or self-care (01) ==
PROVIDERS: Visit Provider Physician Assistant
DX: S52.571A Other intraarticular fracture of lower end of right radius, initial encounter for closed fracture (principal); S52.612A Displaced fracture of left ulna styloid process, initial encounter for closed fracture
CPT/HCPCS: 99214

== ENCOUNTER 2022-12-06 06:47 | Day surgery (SDC) | payer OTHER, SELFPAY ==
[2022-12-06] VITALS (7 sets, daily range): BP systolic 124–158; BP diastolic 66–81; PULSE 69–85; RESP 16–18; TEMP 36.6–36.9; O2SAT 96–100; BMI 27.3
--- NOTE | ~2022-12-06 | FL_ITS ---
EXAMINATION: XR FLUOROSCOPY WITH IMAGES CLINICAL INFORMATION: ORIF radius. COMPARISON: Radius x-ray most recent November 2022 TECHNIQUE: Fluoroscopy Supervised By: Dr. Kayla Powers. Fluoroscopy Time: 25.20 seconds. Cumulative Dose: 0.8733 mGy. DAP: 0.0528 Gycm2. Images: 4. FINDINGS: Fluoroscopic guidance provided for ORIF of left distal radius fracture. There is a new plate and screws with improved alignment of the distal radius fracture. Nondisplaced ulnar styloid fracture not well appreciated. FL/FL guidance in OR IMPRESSION: Fluoroscopic guidance for ORIF of left distal radius fracture.
[2022-12-06] MEDS: Lactated Ringers 1,000 ML 100 ML IVCONT (08:00)
--- NOTE | 2022-12-06 08:12 | P.CONAN_ITS ---
HPI - Anesthesia Eval Consult details Narrative: forradius fracture ORIF [facility] Active Problems Active Problems: All Active Problems (Updated 12/03/22 @ 13:29 by Maria Alejandra Schroeder PA-C) Distal radius fracture, left (Acute) Hypothyroid (Acute) GERD (gastroesophageal reflux disease) (Acute) Depression (Acute) OAB (overactive bladder) (Acute) Post-menopausal atrophic vaginitis (Acute) Urge incontinence (Acute) Sensation of pressure in bladder area (Acute) Incontinence (Acute) Microhematuria (Acute) Triple negative malignant neoplasm of breast (Acute) Osteoporosis (Acute) Past Medical History Medical History Breast cancer COVID-19 vaccine administered Depression Fracture of 5th metatarsal Fracture of greater tuberosity of right humerus GERD (gastroesophageal reflux disease) History of breast cancer Hypothyroid Family History Family History Other No family history of cancer Family history of problems with anesthesia: No Surgical History Surgical History H/O colonoscopy History of arthroplasty of left knee History of esophagogastroduodenoscopy (EGD) Hx of appendectomy Hx of bilateral mastectomy Hx of breast reconstruction Hx of cataract extraction Hx of tonsillectomy History of Problems with Anesthesia: No Social History Social History Household Members: Significant Other Housing: Apartment Are you a primary special needs child caregiver to a significant other at home: No Do you presently have visiting nurse or other home services: No Alcohol intake: never Patient Tobacco Use Status: Former Tobacco user Quit Date: 2008 Tobacco use type: Cigarette Have you been hit, kicked, punched, or otherwise hurt by someone within the past year? 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 Meds Allergies Allergy/AdvReac Type Severity Reaction Status Date / Time ketamine Allergy Severe Hallucinati Verified 12/05/22 13:49 ons amoxicillin [AMOXICILLIN] Allergy Intermediate hives/rash Verified 12/03/22 12:37 Penicillins [PENICILLINS] Allergy Intermediate hives/rash Verified 12/03/22 12:37 Active Medications: Current Medications Lactated Ringer's (Lr) 1,000 mls @ 100 mls/hr IVCONT .Q10H ALANNAH Last Admin: 12/06/22 08:00 Dose: 100 mls/hr Home Medications Medication Instructions Recorded Confirmed Last Taken Type albuterol sulfate 90 mcg/actuation 90 mcg inhalation NEEDED 06/24/20 11/20/22 Unknown History aerosol inhaler bronchospasm budesonide-formoterol HFA 160 2 puff inhalation BID PRN Wheezing 06/24/20 11/20/22 Unknown History mcg-4.5 mcg/actuation aerosol inhaler (Symbicort) cetirizine 10 mg tablet 1 tab PO DAILY 06/24/20 11/20/22 Unknown History citalopram 10 mg tablet 20 mg PO DAILY 06/24/20 11/20/22 Unknown History levothyroxine 75 mcg tablet 1 tab PO DAILY 06/24/20 11/20/22 11/04/20 07:00 History omeprazole 20 mg capsule,delayed 1 cap PO DAILY 06/24/20 11/20/22 11/04/20 07:00 History release trazodone 50 mg tablet 1 tab PO BEDTIME 06/24/20 11/20/22 Unknown History omalizumab 150 mg/mL subcutaneous 150 mg subcut Q2W 12/16/20 11/20/22 Unknown History syringe (Xolair) Exam Exam Date and Time: December 06, 2022 0812 Height,Weight and Vital Signs: Height 5 ft 6 in Weight 76.657 kg Last Vital Signs Temp 98.4 F 12/06/22 07:30 Pulse 69 12/06/22 07:30 Resp 18 12/06/22 07:30 BP 154/80 H 12/06/22 07:30 Pulse Ox 97 12/06/22 07:30 O2 Del Method Room Air 12/06/22 07:30 Airway Mallampati Class: II TM Dist: >3cm Neck ROM: Full Heart: rrr Lungs: cta Assessment and Plan Assessment Anesthesia Assessment: Anesthesia Plan Discussed and Chart Reviewed Final Anesthetic Review Family History of Problems with Anesthesia: No History of Problems with Anesthesia: No NPO: Yes ASA Class: II Final Preanesthetic Review: No Changes in Pt Med Stat, Meds/Allgs Chart Reviewed, Consent Obtained/Reviewed and Anes Risks/Benef Reviewed Patient Risk: Low Procedure Risk: Low Anesthetic Plan Anesthetic Plan: GA Disposition: Standard PACU (ot received ketamine in ER , very anxiuos about dysphoria that she experienced )
--- NOTE | 2022-12-06 09:01 | MHC.SHP ---
Pre-Procedural Eval Section A Date of Service: 12/06/22 The patient is an INPATIENT: No Changes since office visit: No Cold of Flu in the past 2 weeks, No New Medical Problems, No Changes in Medication and No Patient answered all questions The History & Physical has been completed within 30 days and I have reviewed it.: Yes Section B Chief Complaint: Unspecified fracture of the lower end of left Allergies: Allergies Allergy/AdvReac Type Severity Reaction Status Date / Time ketamine Allergy Severe Hallucinati Verified 12/05/22 13:49 ons amoxicillin [AMOXICILLIN] Allergy Intermediate hives/rash Verified 12/03/22 12:37 Penicillins [PENICILLINS] Allergy Intermediate hives/rash Verified 12/03/22 12:37 Plan I have reviewed the history and physical and performed a pertinent physical examination on my patient. No changes have occurred unless specified. Time Spent With Patient Time: Total time managing care of this patient today ____ minutes.
--- NOTE | 2022-12-06 09:02 | P.OP_ITS ---
Operative Note Operative Note Date of Service: 12/06/22 Narrative: Operative Note Narrative: Preop diagnosis: 1. Left Distal radius fracture, comminuted intra-articular 2 part volar Rowley Postop diagnosis: Same Procedure: 1. Left Distal radius fracture open reduction internal fixation, comminuted intra-articular 2 part volar Rowley 2. Brachioradialis tenotomy Anesthesia: General anesthesia plus regional block Findings: volar Rowley variant distal radius fracture with significant shortening and volar displacement Implants: A 3 hole narrow Accu Med volar locking plate, with 4x 2.3 mm locking pegs/screws, and 3 3.5 mm cortical screws Tourniquet time: 65 minutes EBL: 5.0 ml Specimen: None Drains: None Complications: None Disposition: Brought to the recovery room in stable condition Plan: Follow-up in 10-14 days for wound check, suture removal and postop radiographs The patient will be placed in either a short-arm cast or a volar wrist splint. Encouraged no lifting of anything heavier than a cell phone. Please encourage active and passive range of motion of the digits. Follow-up at 4-5 weeks postop for repeat radiographs. Indications: The patient is a 56 year old woman with left intra-articular volar Rowley type distal radius fracture . The risks and benefits of operative treatment, including but not limited to risk of damage to blood vessels, nerves, tendons, infection, recurrence, persistent pain or numbness, incomplete r esolution of preoperative symptoms, or need for further surgery were discussed with the patient and they wished to proceed with surgery. Procedure: Once consent was obtained patient was brought back to the operating suite and placed in the operating table in a supine position. A regional block was performed by the anesthesia team. Perioperative antibiotics and anesthesia was administered by the anesthesia team. A tourniquet was applied to the proximal aspect of the left upper extremity and the limb was prepped and draped in a standard surgical fashion. The limb was elevated exsanguinated with Esmarch bandage and the tourniquet inflated to 250 mm of mercury for a total tourniquet time of 65 minutes. The FluoroScan was used throughout the case to assess our reduction, and facilitate implant placement. A gentle closed reduction was 1st performed on the patient's left distal radius fracture. Was assessed radiographically before proceeding with the reduction internal fixation. I then made an 8 cm longitudinal incision over the distal aspect of the flexor carpi radialis tendon. The incision was made through the skin to the subcutaneous tissue using a 15. Blade. Then carefully dissected down to flexor carpi radialis tendon she tenotomy scissors. The FCR tendon sheath was then incised longitudinally using tenotomy scissors under direct visualization. The FCR tendon was then retracted ulnarly. I then made a longitudinal incision in the volar forearm fascia through the floor of FCR tendon sheath using tenotomy scissors under direct visualization. I identified the interval between the radial artery and the flexor tendons. This interval was developed further with my index finger, releasing some of the muscular fibers of the flexor pollicis longus. A dull weatlander retractor was then placed. I then created an ulnarly based flap of the pronator quadratus by releasing the radial and distal edges using a 15. Blade. A Schaeffer elevator was used to elevate the pronator quadratus from the volar surface of the distal radius. This then revealed to us our distal radius fracture. this is a volar Rowley variant with shortening and volar displacement. A brachioradialis tenotomy was performed, releasing the brachioradialis from its insertion in the radial styloid to help facilitate our reduction. An open reduction was then performed on our distal radius fracture. I then placed a short narrow 3 hole Accu Med volar locking plate on the volar surface of the distal radius. I placed a single K-wire through the distal aspect of the plate and into the distal radius. This was assessed using fluoroscopic images. I was satisfied with the placement of our plate. I then placed 4x 2.3 mm locking screws/pegs in the distal aspect of the plate and distal radius by 1st drilling bicortically with a 1.8 mm drill bit, measuring with a depth gauge, and placing the appropriate length locking screws/pegs. The placement of our plate and screws was then assessed again using fluoroscopic images. The once satisfied with the placement of the volar locking plate and screws on the distal aspect of the distal radius, the plate was then reduced to the shaft of the r adius. I then placed 2x 3.5 mm cortical screws to the proximal aspect of the plate and into the shaft of the radius. This was done by 1st drilling bicortically with a 2.8 mm drill bit, measuring with a depth gauge, and placing the appropriate length screw. I tried to place a 3rd 3.5 mm cortical screw in the more proximal hole, but it had poor purchase. Thus, I placed a 3.5 mm locking screw in this position. Final radiographs were then obtained. The DRUJ was assessed and found to be stable on exam. I was satisfied with our reduction and placement of all implants. At this point the wound was irrigated with normal saline. The pronator quadratus was reduced back over the volar locking plate using some 3-0 Vicryl suture material. The tourniquet was then deflated and hemostasis was obtained with a brief period of local pressure and bipolar monopolar electrocautery. The subcutaneous layer was then reapproximated using some 4-0 Vicryl suture, and the skin edges were reapproximated using some 5 0 Prolene suture. The wound was then infiltrated with some 1% lidocaine with epinephrine postop pain control. A sterile dressing and a short dorsal splint allowing for active flexion and extension of the digits was applied. The patient appears to have tolerated the procedure well and with no complications. All digits were well vascularized conclusion of the case.
== END 2022-12-06 13:28 | disposition home or self-care (01) ==
PROVIDERS: Visit Provider Orthopaedic Surgery
PROC: (CPT 25526; principal; 2022-12-06 08:40)
DX: S52.572A Other intraarticular fracture of lower end of left radius, initial encounter for closed fracture (principal); W01.0XXA Fall on same level from slipping, tripping and stumbling without subsequent striking against object, initial encounter; Y93.9 Activity, unspecified; Y92.9 Unspecified place or not applicable; Y99.8 Other external cause status; G56.02 Carpal tunnel syndrome, left upper limb; M25.532 Pain in left wrist; M81.0 Age-related osteoporosis without current pathological fracture; F32.A Depression, unspecified; Z85.3 Personal history of malignant neoplasm of breast; Z79.899 Other long term (current) drug therapy; Z88.0 Allergy status to penicillin; Z88.1 Allergy status to other antibiotic agents; Z87.891 Personal history of nicotine dependence
CPT/HCPCS: 25526; 64721; 25290; C1713; C1769; J0330; J0690; J1100; J2405; J2795; J3010

== ENCOUNTER → 2022-12-06 06:47 | Outpatient (BNV) | payer OTHER, SELFPAY | PROVIDERS: Visit Provider Orthopaedic Surgery | DX: S52.572A Other intraarticular fracture of lower end of left radius, initial encounter for closed fracture (principal); G56.02 Carpal tunnel syndrome, left upper limb | CPT/HCPCS: 25608; 64721 ==

== ENCOUNTER 2022-12-14 13:50 | Outpatient (AMB) | payer OTHER, SELFPAY ==
--- NOTE | 2022-12-14 13:52 | A.OFFVIS_ITS ---
Intake Intake Visit Reasons: PO - Left Distal Radius ORIF vs CRPP 12/06/22 AR Intake Note: Vanesa Steele 57 yr old female presents today for her wound check of her left distal radius ORIF from DOS 12/06/22. States she is having increase pain and wants to make sure what she is experiencing is normal. Allergies ketamine Allergy (Severe, Verified 12/14/22 13:55) Hallucinations amoxicillin [AMOXICILLIN] Allergy (Intermediate, Verified 12/14/22 13:55) hives/rash Penicillins [PENICILLINS] Allergy (Intermediate, Verified 12/14/22 13:55) hives/rash HPI PO - Left Distal Radius ORIF vs CRPP 12/06/22 AR HPI Details 57-year-old female who presents in the office today 8 days status post left distal radius fracture open reduction internal fixation, left brachioradialis tenotomy, and left carpal tunnel release, which was performed on 12/06/[address] Powers. The patient reports she is having increased pain and would like to make sure what she is experiencing is normal. [facility] Medical History Breast cancer COVID-19 vaccine administered Depression Fracture of 5th metatarsal Fracture of greater tuberosity of right humerus GERD (gastroesophageal reflux disease) History of breast cancer Hypothyroid Surgical History H/O colonoscopy History of arthroplasty of left knee History of esophagogastroduodenoscopy (EGD) Hx of appendectomy Hx of bilateral mastectomy Hx of breast reconstruction Hx of cataract extraction Hx of tonsillectomy Family History Other No family history of cancer Social History Household Members: Significant Other Housing: Apartment Are you a primary customer care professional to a significant other at home: No Do you presently have visiting nurse or other home services: No Alcohol intake: never Patient Tobacco Use Status: Former Tobacco user Quit Date: 2008 Tobacco use type: Cigarette service: No Current occupational status: employed 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 No erythema or drainage. No signs of infection. Reports intermittent numbness and tingling in the thumb and index finger. Office Procedures Casting/Splints 86834-Tprheii Splint Application Procedure code (CPT) selection complete Assessment & Plan Assessment & Plan (1) Distal radius fracture, left: Comment: left distal radius fracture open reduction internal fixation, left brachioradialis tenotomy, and left carpal tunnel release; 12/06/2022 AR Code(s): S52.502A - Unspecified fracture of the lower end of left radius, initial encounter for closed fracture Plan Ms. Oglesby is a 57-year-old female who presents in the office today 8 days status post left distal radius fracture open reduction internal fixation, left brachioradialis tenotomy, and left carpal tunnel release, which was performed on 12/06/[address] Powers. The patient reports she is having increased pain and would like to make sure what she is experiencing is normal. The patient was placed back in to her volar splint. Follow up will be at her regularly scheduled appointment, or sooner if needed. Patient Instructions: Scribed for Maria Alejandra Schroeder PA-C by Alessandra Patel director biomedical engineering, on 12/14/2022 at 1:54 pm, EST. Coding Level of Care Code Global (41215) Diagnoses Distal radius fracture, left S52.502A CPT Codes Splint - CPT: 59207-Xtncxpi Splint Application ([id number])
== END 2022-12-14 14:48 | disposition home or self-care (01) ==
PROVIDERS: Visit Provider Physician Assistant
DX: S52.502A Unspecified fracture of the lower end of left radius, initial encounter for closed fracture (principal); W01.0XXA Fall on same level from slipping, tripping and stumbling without subsequent striking against object, initial encounter
CPT/HCPCS: 29125; 99024

== ENCOUNTER → 2022-12-14 13:50 | Outpatient (BNVA) | payer OTHER, SELFPAY | PROVIDERS: Visit Provider Physician Assistant ==

== ENCOUNTER 2022-12-18 08:37 | Outpatient (REF) | payer OTHER, SELFPAY ==
--- NOTE | ~2022-12-18 | XR_ITS ---
EXAMINATION: XR WRIST, LEFT CLINICAL INFORMATION: Splint off, follow up fracture. COMPARISON: Left wrist radiograph from 12/03/2022, 11/30/2022 and 12/01/2022. TECHNIQUE: PA, lateral, and oblique views of the left wrist. FINDINGS: Status post ORIF with plate and screws transfixing previously noted comminuted impacted intra-articular distal radial fracture with improved alignment. Redemonstration of ulnar distorted fracture. The bones are diffusely demineralized. Moderate degenerative changes 1st carpometacarpal joint with joint space narrowing and hypertrophic change. XR/XR wrist LT min 3V IMPRESSION: Status post ORIF with plate and screws transfixing previously noted comminuted impacted intra-articular distal radial fracture with improved alignment.
== END 2022-12-18 08:38 | disposition home or self-care (01) ==
LOC: HO.HOSX 08:37
PROVIDERS: Visit Provider Physician Assistant
DX: S52.502D Unspecified fracture of the lower end of left radius, subsequent encounter for closed fracture with routine healing (principal)
CPT/HCPCS: 29085; 73110

== ENCOUNTER 2022-12-18 10:25 | Outpatient (AMB) | payer OTHER, SELFPAY ==
--- NOTE | 2022-12-18 10:36 | A.OFFVIS_ITS ---
Intake Intake Visit Reasons: PO - Left Distal Radius ORIF vs CRPP 12/06/22 AR Intake Note: Vanesa Steele is a 57 year old right hand dominant female who presents today for her left distal radius ORIF from DOS 12/06/22. Patient reports she has some tenderness and soreness but over all doing well. Dressing removed in office and xrays updated. Allergies ketamine Allergy (Severe, Verified 12/18/22 10:37) Hallucinations amoxicillin [AMOXICILLIN] Allergy (Intermediate, Verified 12/18/22 10:37) hives/rash Penicillins [PENICILLINS] Allergy (Intermediate, Verified 12/18/22 10:37) hives/rash HPI PO - Left Distal Radius ORIF vs CRPP 12/06/22 AR HPI Details 57-year-old female who presents in the office today 12 days status post left distal radius fracture open reduction internal fixation, left brachioradialis tenotomy, and left carpal tunnel release, which was performed on 12/06/[address] Powers. The patient reports some tenderness and soreness, but overall is doing well. [facility] Medical History Breast cancer COVID-19 vaccine administered Depression Fracture of 5th metatarsal Fracture of greater tuberosity of right humerus GERD (gastroesophageal reflux disease) History of breast cancer Hypothyroid Surgical History H/O colonoscopy History of arthroplasty of left knee History of esophagogastroduodenoscopy (EGD) Hx of appendectomy Hx of bilateral mastectomy Hx of breast reconstruction Hx of cataract extraction Hx of tonsillectomy Family History Other No family history of cancer Social History (Updated 12/18/22 @ 10:38 by EVA Gorman) Household Members: Significant Other Housing: Apartment Are you a primary home care provider to a significant other at home: No Do you presently have visiting nurse or other home services: No Alcohol intake: never Patient Tobacco Use Status: Former Tobacco user Quit Date: 2008 Tobacco use type: Cigarette service: No Current occupational status: employed 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 Sutures intact. Able to slightly flexion and extend at the wrist but is limited due to pain and stiffness. Lacking about 3 cm from making a closed fist. NVI. Office Procedures Casting/Splints 76686-Ukrl/Wrist Cast Application Procedure code (CPT) selection complete Assessment & Plan Assessment & Plan (1) Distal radius fracture, left: Comment: left distal radius fracture open reduction internal fixation, left brachioradialis tenotomy, and left carpal tunnel release; 12/06/2022 AR Code(s): S52.502A - Unspecified fracture of the lower end of left radius, initial encounter for closed fracture Plan Ms. Oglesby is a 57-year-old female who presents in the office today 12 days status post left distal radius fracture open reduction internal fixation, left brachioradialis tenotomy, and left carpal tunnel release, which was performed on 12/06/[address] Powers. The patient reports some tenderness and soreness, but overall is doing well. Sutures were removed and steri-stripes were applied while in the office today. She was transitioned to a custom made cast. She will be referred to occupational therapy to work on gentle finger ROM in the mean time. Follow up will be in 2 weeks with cast off and x-rays, with anticipation of transition to velcro wrist splint, or sooner if needed. X-rays of the left wrist which were obtained while in the office today and were reviewed by me, Maria Alejandra Schroeder PA-C, revealed intact orthopedic hardware with routine healing. Orders: Orders XR wrist LT min 3V Today M25.539 - Pain in unspecified wrist OT Evaluation and Treatment Today S52.502A - Unspecified fracture of the lower end of left radius, initial encounter for closed fracture Coding Level of Care Code Global (04941) Diagnoses Distal radius fracture, left S52.502A CPT Codes Casting - CPT: 40826-Hfur/Wrist Cast Application ([id number])
== END 2022-12-18 11:42 | disposition home or self-care (01) ==
PROVIDERS: Visit Provider Physician Assistant
DX: S52.502A Unspecified fracture of the lower end of left radius, initial encounter for closed fracture (principal)
CPT/HCPCS: 29085; 99024

== ENCOUNTER 2022-12-20 15:05 | Outpatient (AMB) | payer OTHER, SELFPAY ==
--- NOTE | 2022-12-20 15:24 | A.OFFVIS_ITS ---
Intake Intake Visit Reasons: PO - Left Distal Radius ORIF vs CRPP 12/06/22 AR Intake Note: Vanesa Steele is a 57 year old right hand dominant female who presents today for her left distal radius ORIF from DOS 12/06/22 cast change. States cast feels a little tight. Allergies ketamine Allergy (Severe, Verified 12/20/22 15:24) Hallucinations amoxicillin [AMOXICILLIN] Allergy (Intermediate, Verified 12/20/22 15:24) hives/rash Penicillins [PENICILLINS] Allergy (Intermediate, Verified 12/20/22 15:24) hives/rash HPI PO - Left Distal Radius ORIF vs CRPP 12/06/22 AR HPI Details 57-year-old female who presents in the office today for a cast change; 2 weeks status post left distal radius fracture open reduction internal f ixation, left brachioradialis tenotomy, and left carpal tunnel release, which was performed on 12/06/[address] Powers. She states the cast was a little tight. [facility] Medical History Breast cancer COVID-19 vaccine administered Depression Fracture of 5th metatarsal Fracture of greater tuberosity of right humerus GERD (gastroesophageal reflux disease) History of breast cancer Hypothyroid Surgical History H/O colonoscopy History of arthroplasty of left knee History of esophagogastroduodenoscopy (EGD) Hx of appendectomy Hx of bilateral mastectomy Hx of breast reconstruction Hx of cataract extraction Hx of tonsillectomy Family History Other No family history of cancer Social History Household Members: Significant Other Housing: Apartment Are you a primary women's health care nurse practitioner to a significant other at home: No Do you presently have visiting nurse or other home services: No Alcohol intake: never Patient Tobacco Use Status: Former Tobacco user Quit Date: 2008 Tobacco use type: Cigarette service: No Current occupational status: employed 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 Sutures intact. Able to slightly flexion and extend at the wrist but is limited due to pain and stiffness. Lacking about 3 cm from making a closed fist. NVI. Office Procedures Casting/Splints [id number]-[id number]/Wrist Cast Application Procedure code (CPT) selection complete Assessment & Plan Assessment & Plan (1) Distal radius fracture, left: Comment: left distal radius fracture open reduction internal fixation, left brachioradialis tenotomy, and left carpal tunnel release; 12/06/2022 AR Code(s): S52.502A - Unspecified fracture of the lower end of left radius, initial encounter for closed fracture Plan Ms. Oglesby is a 57-year-old female who presents in the office today for a cast change; 2 weeks status post left distal radius fracture open reduction internal fixation, left brachioradialis tenotomy, and left carpal tunnel release, which was performed on 12/06/[address] Powers. She states the cast was a little tight. She was placed in a new custom made short arm cast while in the office today. Follow up will be at her regularly scheduled appointment, or sooner if needed. Patient Instructions: Scribed for Maria Alejandra Schroeder PA-C by Alessandra Patel medical insurance coding specialist, on 12/17/2022 at 3:12 pm, EST. Coding Level of Care Code Procedure Only Diagnoses Distal radius fracture, left S52.502A CPT Codes Casting - CPT: 49206-Zfqn/Wrist Cast Application ([id number])
== END 2022-12-20 15:47 | disposition home or self-care (01) ==
PROVIDERS: PCP Family Medicine; Visit Provider Physician Assistant
DX: S52.502A Unspecified fracture of the lower end of left radius, initial encounter for closed fracture (principal)
CPT/HCPCS: 29085

== ENCOUNTER → 2022-12-20 15:05 | Outpatient (BNVA) | payer OTHER, SELFPAY | PROVIDERS: PCP Family Medicine; Visit Provider Physician Assistant | DX: S52.502D Unspecified fracture of the lower end of left radius, subsequent encounter for closed fracture with routine healing (principal) | CPT/HCPCS: 29085 ==

== ENCOUNTER 2022-12-25 14:10 | Outpatient (AMB) | payer OTHER, SELFPAY ==
--- NOTE | 2022-12-25 14:30 | MHC.OFFVIS ---
Intake Intake Visit Reasons: PO - Left Distal Radius ORIF 12/06/22 Intake Note: Vanesa Steele is a 57 year old right hand dominant female who presents today for her left distal radius ORIF from DOS 12/06/22 cast change. States cast feels a little tight. Allergies ketamine Allergy (Severe, Verified 12/25/22 14:31) Hallucinations amoxicillin [AMOXICILLIN] Allergy (Intermediate, Verified 12/25/22 14:31) hives/rash Penicillins [PENICILLINS] Allergy (Intermediate, Verified 12/25/22 14:31) hives/rash HPI PO - Left Distal Radius ORIF 12/06/22 HPI Details Vanesa Steele is a 57 year old right hand dominant woman who presents S/P left distal radius ORIF, brachioradialis tenotomy, & carpal tunnel release, DOS: 12/06/22. She is here for a cast change and says this feels too tight and uncomfortable Sh says she is much happier in clinic once her cast was removed. She continues to have dense numbness in her thumb and index fingers, and improving sensation in her middle finger. 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 She has been out of work since her injury. [facility] Medical History Breast cancer COVID-19 vaccine administered Depression Fracture of 5th metatarsal Fracture of greater tuberosity of right humerus GERD (gastroesophageal reflux disease) History of breast cancer Hypothyroid Surgical History H/O colonoscopy History of arthroplasty of left knee History of esophagogastroduodenoscopy (EGD) Hx of appendectomy Hx of bilateral mastectomy Hx of breast reconstruction Hx of cataract extraction Hx of tonsillectomy Family History Other No family history of cancer Social History Household Members: Significant Other Housing: Apartment Are you a primary day care home provider to a significant other at home: No Do you presently have visiting nurse or other home services: No Alcohol intake: never Patient Tobacco Use Status: Former Tobacco user Quit Date: 2008 Tobacco use type: Cigarette service: No Current occupational status: employed 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 Review of Systems Const All systems reviewed & are unremarkable except as noted in HPI and below Physical Exam Const General: cooperative, healthy appearing and no acute distress Orientation/consciousness: patient oriented x3 HEENT Head: Yes normocephalic and Yes atraumatic Eyes EOM: EOMs intact bilaterally Resp Effort & Inspection: normal respiratory effort and able to speak in complete sentences Cardio Jugular venous distension: no JVD Skin General skin exam: turgor normal Rashes: no rashes Neuro General: patient oriented x3 Extrem Other: Evaluation of Upper Extremity: The patient is alert, oriented, and in no acute distress Neuro: dense numbness in her thumb and index fingers, and improving sensation in her middle finger. More normal sensation in the ring and small fingers I do not see good APB muscle belly firing at this time Vascular: Cap refill brisk ROM: She can bring her fingers closed to a fist She has ~70 degrees pronation Initially her supination was -10 degrees, after working on exercises in clinic we were able to have her supinate to neutral. Skin: No lacerations or abrasions. General: No Ecchymosis. No Erythema or evidence of infection. Radiographs: 3 views of her left wrist were taken and viewed by me today in clinic. They show a left distal radius fracture with satisfactory fracture alignment and position of all implants. Psych Appearance: grossly normal Affect: normal affect Attitude: cooperative Office Procedures Fracture Care Details: No fracture, manual therapy greater than 15 minutes [id number] Fracture Billing Code: Fracture Billing Code Assessment & Plan Assessment & Plan (1) Distal radius fracture, left: Comment: left distal radius fracture open reduction internal fixation, left brachioradialis tenotomy, and left carpal tunnel release; 12/06/2022 AR Code(s): S52.502A - Unspecified fracture of the lower end of left radius, initial encounter for closed fracture (2) Carpal tunnel syndrome of left wrist: Code(s): G56.02 - Carpal tunnel syndrome, left upper limb Plan Assessment & Plan: 1. Left Distal radius fracture, comminuted intra-articular 2 part volar Rowley DOI: 11/30/22 2. Left Carpal tunnel syndrome, S/P a. left Distal radius fracture ORIF b. brachioradialis tenotomy c. carpal tunnel release DOS: 12/06/22 The patient appears to be doing well post-operatively. She presents today for a cast change as she complains the cast was too tight . I educated her about the post-operative course She continues to have dense numbness in the thumb and index fingers, with improved but not yet normal sensation in the other digits She was fitted for a velcro wrist splint, to be worn like a cast except for showering, for the next 2 weeks. After 2 weeks she is able to begin removing her splint at night I discussed activity modifications, she is to lift nothing heavier than a cellphone for the next 2 weeks She will perform gentle wrist ROM exercises at home including supination. We worked on ROM exercises in clinic for more than 15 minutes She will follow up in 3 weeks, with X-rays, 3V L wrist She was given a note for work to return on 12/31/22 on light duty, half-time with a 2lb weight limit Scribed for Kayla Powers MD by Lito Schmidt, medical malpractice paralegal, on 12/25/22 at 3:50 PM, EST. Orders: Orders XR wrist LT min 3V Today M25.532 - Pain in left wrist Coding Level of Care Code Global (78918) Diagnoses Distal radius fracture, left S52.502A Carpal tunnel syndrome of left wrist G56.02 CPT Codes Fracture Care - Fracture Billing Code: Fracture Billing Code ([id number])
== END 2022-12-25 16:10 | disposition home or self-care (01) ==
PROVIDERS: PCP Family Medicine; Visit Provider Orthopaedic Surgery
DX: S52.572A Other intraarticular fracture of lower end of left radius, initial encounter for closed fracture (principal); G56.02 Carpal tunnel syndrome, left upper limb
CPT/HCPCS: 97140; 99024

== ENCOUNTER 2022-12-25 14:10 | Outpatient (REF) | payer OTHER, SELFPAY ==
--- NOTE | ~2022-12-25 | XR_ITS ---
EXAMINATION: XR WRIST, LEFT CLINICAL INFORMATION: Pain in left wrist COMPARISON: 12/19/2019 TECHNIQUE: PA, lateral, and oblique views of the left wrist. FINDINGS: There is diffuse osteopenia. Patient is status post ORIF placement with plate and screws for compression of fracture of the distal radius. Fracture line is barely visualized. Position of hardware is stable. There are changes of osteoarthritis in the first carpometacarpal joint. There are no new fractures seen. XR/XR wrist LT min 3V IMPRESSION: Interval healing of fracture of the distal radius with hardware in place and diffuse osteopenia
== END 2022-12-25 14:11 | disposition home or self-care (01) ==
LOC: HO.HOSX 14:10
PROVIDERS: PCP Family Medicine; Visit Provider Orthopaedic Surgery
DX: M25.532 Pain in left wrist (principal); S52.502A Unspecified fracture of the lower end of left radius, initial encounter for closed fracture; G56.02 Carpal tunnel syndrome, left upper limb; X58.XXXA Exposure to other specified factors, initial encounter; Y93.9 Activity, unspecified; Y92.9 Unspecified place or not applicable; Y99.9 Unspecified external cause status
CPT/HCPCS: 73110

== ENCOUNTER 2023-01-14 08:58 | Outpatient (REF) | payer OTHER, SELFPAY ==
[2023-01-14 12:37] LABS: TSH reflex Free T4 1.05 uIU/mL (0.32-4.0)
== END 2023-01-14 08:59 | disposition home or self-care (01) ==
LOC: HO.HMGCLDS 08:58
PROVIDERS: PCP Family Medicine; Visit Provider Family Medicine
DX: E03.9 Hypothyroidism, unspecified (principal)
CPT/HCPCS: 36415; 84443

== ENCOUNTER 2023-01-15 08:31 | Outpatient (REF) | payer OTHER, SELFPAY ==
--- NOTE | ~2023-01-15 | XR_ITS ---
EXAMINATION: XR WRIST, LEFT CLINICAL INFORMATION: Left wrist pain. COMPARISON: Multiple priors, most recent left wrist radiograph dated 12/25/2022. TECHNIQUE: PA, lateral, and oblique views of the left wrist. FINDINGS: Redemonstration of a volar stabilization plate with fixation screws at the distal radius in unchanged anatomic alignment. No hardware fracture. No perihardware lucency to suggest loosening or infection. The previously seen distal radial fracture is in unchanged anatomic alignment with mild increase in new bone formation when compared to the prior examination. Stable, mildly displaced fracture through the base of the 1st proximal phalanx in unchanged anatomic alignment. Findings are unchanged dating back to the radiographs dated 11/30/2022. No significant osseous bridging or evidence of new bone/callus formation. Degenerative arthritis redemonstrated at the triscaphe, 1st carpal metacarpal, and 1st metacarpal phalangeal joints. XR/XR wrist LT min 3V IMPRESSION: 1. Distal radial ORIF without evidence of hardware complication. Distal radial fracture in unchanged anatomic alignment with mild new bone formation. 2. Stable, mildly displaced fracture through the base of the 1st proximal phalanx in unchanged anatomic alignment. No significant osseous bridging or evidence of new bone/callus formation.
== END 2023-01-15 08:32 | disposition home or self-care (01) ==
LOC: HO.HOSX 08:31
PROVIDERS: Visit Provider Orthopaedic Surgery
DX: S52.502D Unspecified fracture of the lower end of left radius, subsequent encounter for closed fracture with routine healing (principal); G56.02 Carpal tunnel syndrome, left upper limb
CPT/HCPCS: 73110

== ENCOUNTER 2023-01-15 10:35 | Outpatient (AMB) | payer OTHER, SELFPAY ==
--- NOTE | 2023-01-15 11:01 | A.OFFVIS_ITS ---
Intake Intake Visit Reasons: ov- LT distal radius ORIF, 12/06/22 Intake Note: Vanesa Steele is a 57 year old right hand dominant female who presents today for her P/O visit of her left distal radius ORIF from DOS 12/06/22. States she is having pain by her thumb, also states she has a small bump in web space between her thumb and index. Allergies ketamine Allergy (Severe, Verified 01/15/23 11:04) Hallucinations amoxicillin [AMOXICILLIN] Allergy (Intermediate, Verified 01/15/23 11:04) hives/rash Penicillins [PENICILLINS] Allergy (Intermediate, Verified 01/15/23 11:04) hives/rash HPI ov- LT distal radius ORIF, 12/06/22 HPI Details Vanesa Oglesby is a 57-year-old right hand dominant woman who presents today to the office for a follow-up of left distal radius ORIF on 12/06/22. The patient is status post left distal radius ORIF, brachioradialis tenotomy, & carpal tunnel release, DOS: 12/06/22. The patient still has some numbness in her left hand, though she thinks it is improving, more so to the middle and ring fingers. She is having some pain in the ulnar aspect of the thumb MCP joint. She is also noticing that she does not have normal motion of her thumb. She is denying a new injury or locking or catching. She started occupational therapy today and will visit every Saturday and . She has been using Velcro wrist splints as needed at home and work. She is not using wrist splint at night. 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 She is working four-hour shift daily and would like to start increasing her hours.. [facility] Medical History Breast cancer COVID-19 vaccine administered Depression Fracture of 5th metatarsal Fracture of greater tuberosity of right humerus GERD (gastroesophageal reflux disease) History of breast cancer Hypothyroid Surgical History H/O colonoscopy History of arthroplasty of left knee History of esophagogastroduodenoscopy (EGD) Hx of appendectomy Hx of bilateral mastectomy Hx of breast reconstruction Hx of cataract extraction Hx of tonsillectomy Family History Other No family history of cancer Social History Household Members: Significant Other Housing: Apartment Are you a primary manager intensive care to a significant other at home: No Do you presently have visiting nurse or other home services: No Alcohol intake: never Patient Tobacco Use Status: Former Tobacco user Quit Date: 2008 Tobacco use type: Cigarette service: No Current occupational status: employed 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 Review of Systems Const All systems reviewed & are unremarkable except as noted in HPI and below Physical Exam Const General: cooperative, healthy appearing and no acute distress Orientation/consciousness: patient oriented x3 HEENT Head: Yes normocephalic and Yes atraumatic Eyes EOM: EOMs intact bilaterally Resp Effort & Inspection: normal respiratory effort and able to speak in complete sentences Cardio Jugular venous distension: no JVD Skin General skin exam: turgor normal, ecchymosis (No) and erythema (No) Rashes: no rashes Trauma: no lacerations or abrasions Neuro Other: Vascular: Cap refill brisk General: patient oriented x3 Extrem Other: The patient is alert, oriented, and in no acute distress Her surgical incisions are all well healed with no erythema or infection. Her fracture is completely nontender. She can make a fist and extend all of her digits. She still has numbness in the thumb and index fingers and is starting to have some improved sensation to the middle and ring fingers with normal sensation to the small finger. She does not have appreciable APB muscle belly firing, and I believe this is some of the problem with her thumb. She is mildly tender over the ulnar collateral ligament of the MCP joint of the thumb, but the ulnar collateral ligament and radial collateral ligaments are both stable on exam and there is no pain with testing of the ligaments. She feels a bump, but it feels to me like this is her normal flare of the base of the proximal phalanx. She has got full pronation. Supination to about 65 degrees on the left. Very stiff in wrist flexion extension. She only has perhaps 3-4 degrees of wrist extension, and perhaps 10 degrees of wrist flexion. We went over some exercises and I encouraged her to do them at least 20 times per day. She is also going to work with OT hand therapy. Radiographs 12/25/22: XR WRIST, LEFT 3V. The report was reviewed by me today. She has good evidence of interval bony healing with satisfactory fracture position and position of all implants. Psych Appearance: grossly normal Affect: normal affect Attitude: cooperative Assessment & Plan Assessment & Plan (1) Carpal tunnel syndrome of left wrist: Code(s): G56.02 - Carpal tunnel syndrome, left upper limb (2) Distal radius fracture, left: Comment: left distal radius fracture open reduction internal fixation, left brachioradialis tenotomy, and left carpal tunnel release; 12/06/2022 AR Code(s): S52.502A - Unspecified fracture of the lower end of left radius, initial encounter for closed fracture (3) Stiffness of left wrist joint: Code(s): M25.632 - Stiffness of left wrist, not elsewhere classified Plan 1. Left Carpal tunnel syndrome, S/P carpal tunnel release 2. Left Distal radius fracture, comminuted intra-articular 2 part volar Rowley DOI: 11/30/22 a. left Distal radius fracture ORIF b. brachioradialis tenotomy c. carpal tunnel release DOS: 12/06/22 Her fracture appears to have gone on well to heal. She does have some significant wrist stiffness and I encouraged her to continue working with OT. She continues to have intermittent numbness in the thumb and index fingers, with improved but not yet normal sensation in the other digits.? Importantly, she does not appear to have good APB muscle belly firing.? I think this may be leading to some tightness which then may contribute to some pain with stretching out the ulnar side of the MCP joint. He is going to try to use her coffee cup in the morning to work on thumb abduction.? I explained that the muscle function is actually not going to come back until that nerve comes back to allow the muscle to work. I want her out of her wrist splint except for when participating in activities prone to falling. She should wean out of it completely in the next 3-4 weeks. The patient can return to her work six hours a day and return to full times in two weeks. The patient can start driving.? She will perform gentle wrist ROM exercises at home 20 times per day, including supination.? She will follow up in 4-6 weeks. We will check range of motion and her sensation in APB muscle belly firing. Radiographs are not necessary unless she is having new pain or new injury. Scribed for Dr. Kayla Powers by Neal Ross, ophthalmic medical technologist, on 01/15/2023. I, Dr. Kayla Powers, have personally reviewed and agree with the information entered by the scribe. Orders: Orders XR wrist LT min 3V Today M25.532 - Pain in left wrist Coding Level of Care Code Global (72035) Diagnoses Carpal tunnel syndrome of left wrist G56.02 Distal radius fracture, left S52.502A Stiffness of left wrist joint M25.632
== END 2023-01-15 11:28 | disposition home or self-care (01) ==
PROVIDERS: PCP Family Medicine; Visit Provider Orthopaedic Surgery
DX: G56.02 Carpal tunnel syndrome, left upper limb (principal); S52.502A Unspecified fracture of the lower end of left radius, initial encounter for closed fracture; M25.632 Stiffness of left wrist, not elsewhere classified
CPT/HCPCS: 99024

== ENCOUNTER 2023-01-25 12:17 | Outpatient (AMB) | payer OTHER, SELFPAY ==
--- NOTE | 2023-01-25 13:01 | AM.OFFWIN_ITS ---
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 Patient complaining of throat irritation, nasal congestion, rhinorrhea, myalgias, and malaise x1 day. Patient thought she might just have seasonal allergies but her boyfriend tested positive for COVID-19. She is requesting an COVID-19 test. [facility] Medical History Breast cancer COVID-19 vaccine administered Depression Fracture of 5th metatarsal Fracture of greater tuberosity of right humerus GERD (gastroesophageal reflux disease) History of breast cancer Hypothyroid Surgical History H/O colonoscopy History of arthroplasty of left knee History of esophagogastroduodenoscopy (EGD) Hx of appendectomy Hx of bilateral mastectomy Hx of breast reconstruction Hx of cataract extraction Hx of tonsillectomy Family History Other No family history of cancer Social History Household Members: Significant Other Housing: Apartment Are you a primary career development coordinator to a significant other at home: No Do you presently have visiting nurse or other home services: No Alcohol intake: never Patient Tobacco Use Status: Former Tobacco user Quit Date: 2008 Tobacco use type: Cigarette service: No Current occupational status: employed 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 Review of Systems Const All systems reviewed & are unremarkable except as noted in HPI and below Reports no additional complaints Eyes Reports no additional complaints ENT Reports no additional complaints Card Reports no additional complaints Resp Reports no additional complaints GI Reports no additional complaints Reports no additional complaints Musc Reports no additional complaints Skin/Breast Reports system reviewed and no additional complaints, except as documented Neuro Reports no additional complaints Psych Reports no additional complaints Endo Reports no additional complaints Иван/Lymph Reports no additional complaints Aller/Immun Reports no additional complaints Physical Exam Const Other: Vital signs reviewed. Constitutional: Non-toxic appearing. No acute distress. Well-developed and well-nourished. HEENT: Normocephalic and atraumatic. Moist mucous membranes. No pharyngeal erythema or exudates. PERRL/EOMI. Skin: Warm and dry. No rashes or lesions noted. Neck: Full and painless range of motion. No cervical lymphadenopathy. Cardio: Regular rate. No lower extremity edema. No JVD. Pulmonary: No respiratory distress. No accessory muscle usage. Gastrointestinal: Soft, nontender, and nondistended in all 4 quadrants. Musculoskeletal: Normal range of motion in joints throughout the body. No deformity or other signs of injury. Neuro: Alert and oriented x4. Cranial nerves 2-12 grossly intact. No focal deficits appreciated. Psych: Normal mood and affect. Assessment & Plan Assessment & Plan (1) Viral upper respiratory infection: Code(s): J06.9 - Acute upper respiratory infection, unspecified Plan: This is a 57-year-old female presenting to the office complaining of viral URI symptoms. Patient thought she might just have seasonal allergies but her boyfriend tested positive for COVID-19. Patient requesting a COVID-19 test. Patient's vital signs are stable, her physical exam is benign, and she is overall nontoxic appearing. Rapid COVID-19 test was sent. Patient is a breast cancer survivor and she is high risk for serious infection. If COVID-19 test is positive, we will prescribe the patient paxlovid. Patient presenting with signs and symptoms most consistent with acute respiratory tract infection. Recommended symptomatic management including rest, increased fluids, advil/tylenol for pain/fever, and over the counter throat lozenges/decongestants. Patient advised to follow up here or go to the emergency room for worsening/persistent symptoms. Patient verbalized understanding and is agreeable with the plan. Orders: Orders [facility]NOW Covid-19 Ag Today Z20.822 - Contact with and (suspected) exposure to COVID-19 Coding Level of Care Code New Pt Level 3 (84286) Diagnoses Viral upper respiratory infection J06.9
== END 2023-01-25 13:31 | disposition home or self-care (01) ==
PROVIDERS: PCP Family Medicine; Visit Provider Physician Assistant Medical
DX: J06.9 Acute upper respiratory infection, unspecified (principal)
CPT/HCPCS: 99203

== ENCOUNTER 2023-01-25 13:09 | Outpatient (REF) | payer OTHER, SELFPAY ==
[2023-01-25 13:29] LABS: Binax Internal Control QC Valid; Binax Now Covid-19 Ag Negative (Negative); Binax Performed by: PAULP
== END 2023-01-25 13:10 | disposition home or self-care (01) ==
LOC: HO.HMGCLDS 13:09
PROVIDERS: PCP Family Medicine; Visit Provider Physician Assistant Medical
DX: Z20.822 Contact with and (suspected) exposure to COVID-19 (principal)
CPT/HCPCS: 87811; C9803

== ENCOUNTER 2023-02-26 15:44 | Outpatient (AMB) | payer OTHER, SELFPAY ==
--- NOTE | 2023-02-26 15:54 | A.OFFVIS_ITS ---
Intake Intake Visit Reasons: OV-ov- LT distal radius ORIF, 12/06/22-w/out Xrays Intake Note: Vanesa Steele is a 57 year old right hand dominant female who presents today for her S/P visit of her left distal radius ORIF from DOS 12/06/22 ROM check. States she attends O.T 1x a week and does her home hand exercise with improvement. She states she still feels tight with flextion and extention of wrist. Allergies ketamine Allergy (Severe, Verified 02/26/23 16:01) Hallucinations amoxicillin [AMOXICILLIN] Allergy (Intermediate, Verified 02/26/23 16:01) hives/rash Penicillins [PENICILLINS] Allergy (Intermediate, Verified 02/26/23 16:01) hives/rash HPI OV-ov- LT distal radius ORIF, 12/06/22-w/out Xrays HPI Details Vanesa Oglesby is a 57-year-old right hand dominant woman who presents today to the office S/P left distal radius ORIF, brachioradialis tenotomy, & carpal tunnel release, DOS: 12/06/22. The patient still has some numbness in her left hand, though she thinks it is improving. She says she is doing better and continues to work on ROM both at-home and with OT. She is worried that she feels tight when working on wrist flexion & extension She has discontinues her wrist splint at this time. 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 [facility] Medical History Breast cancer COVID-19 vaccine administered Depression Fracture of 5th metatarsal Fracture of greater tuberosity of right humerus GERD (gastroesophageal reflux disease) History of breast cancer Hypothyroid Surgical History H/O colonoscopy History of arthroplasty of left knee History of esophagogastroduodenoscopy (EGD) Hx of appendectomy Hx of bilateral mastectomy Hx of breast reconstruction Hx of cataract extraction Hx of tonsillectomy Family History Other No family history of cancer Social History Household Members: Significant Other Housing: Apartment Are you a primary transitional care manager to a significant other at home: No Do you presently have visiting nurse or other home services: No Alcohol intake: never Patient Tobacco Use Status: Former Tobacco user Quit Date: 2008 Tobacco use type: Cigarette service: No Current occupational status: employed 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 Review of Systems Const All systems reviewed & are unremarkable except as noted in HPI and below Physical Exam Const General: cooperative, healthy appearing and no acute distress Orientation/consciousness: patient oriented x3 HEENT Head: Yes normocephalic and Yes atraumatic Eyes EOM: EOMs intact bilaterally Resp Effort & Inspection: normal respiratory effort and able to speak in complete sentences Cardio Jugular venous distension: no JVD Skin General skin exam: turgor normal, ecchymosis (No) and erythema (No) Rashes: no rashes Trauma: no lacerations or abrasions Neuro Other: Vascular: Cap refill brisk General: patient oriented x3 Extrem Other: Evaluation of Left Upper Extremity: The patient is alert, oriented, and in no acute distress Neuro: Normal sensation to the middle, ring, and small fingers. improving but not yet normal sensation to the index finger. Numbness in the thumb Weak APB muscle belly firing, which is an improvement since last time.. Vascular: Cap refill brisk ROM: Full Pronosupination Wrist flexion: ~45-50 degrees Wrist extension: ~20 degrees + Shoulder sign Mild tenderness at the Basal joint Radiographs: 3 views of the right wrist from 01/15/23 were reviewed by me today in clinic. They show some basal joint osteoarthritis with subchondral sclerosis and joint space narrowing Psych Appearance: grossly normal Affect: normal affect Attitude: cooperative Assessment & Plan Assessment & Plan (1) Carpal tunnel syndrome of left wrist: Code(s): G56.02 - Carpal tunnel syndrome, left upper limb (2) Distal radius fracture, left: Comment: left distal radius fracture open reduction internal fixation, left brachioradialis tenotomy, and left carpal tunnel release; 12/06/2022 AR Code(s): S52.502A - Unspecified fracture of the lower end of left radius, initial encounter for closed fracture (3) Stiffness of left wrist joint: Code(s): M25.632 - Stiffness of left wrist, not elsewhere classified Plan Assessment & Plan: 1. Left Carpal tunnel syndrome, S/P release 2. Left Distal radius fracture, comminuted intra-articular 2 part volar Amrik DOI: 11/30/22 a. left Distal radius fracture ORIF b. brachioradialis tenotomy c. carpal tunnel release DOS: 12/06/22 Her fracture appears to have gone on to heal well. She does have some significant wrist stiffness with some improvement since last visit and I encouraged her to continue working with OT. She continues to have numbness in the thumb, with improving sensation to the index and normal sensation to the middle, ring, and small fingers Importantly, she appears to have weak APB muscle belly firing now.? She has also been working on passive abduction of the thumb and stretching this area. She will perform gentle wrist ROM exercises at home 20 times per day, with a focus on flexion & extension She will continue with OT 3. Right basal joint osteoarthritis I educated her about this condition as well. I offered her an injections today, she deferred this for now and would like to continue with her OT She can follow up p.r.n. and is happy with the current plan. Scribed for Kayla Powers MD by Lito Schmidt, medical center manager, on 02/26/23 at 4:30 PM, EST. Coding Level of Care Code Est Pt Level 3 (69762) Diagnoses Carpal tunnel syndrome of left wrist G56.02 Distal radius fracture, left S52.502A Stiffness of left wrist joint M25.632
== END 2023-02-26 17:00 ==
PROVIDERS: PCP Family Medicine; Visit Provider Orthopaedic Surgery
DX: G56.02 Carpal tunnel syndrome, left upper limb (principal); S52.502A Unspecified fracture of the lower end of left radius, initial encounter for closed fracture; M25.632 Stiffness of left wrist, not elsewhere classified; M18.11 Unilateral primary osteoarthritis of first carpometacarpal joint, right hand
CPT/HCPCS: 99024

== ENCOUNTER → 2023-02-26 15:44 | Outpatient (BNVA) | payer OTHER, SELFPAY | PROVIDERS: PCP Family Medicine; Visit Provider Orthopaedic Surgery ==

== ENCOUNTER 2023-03-07 15:30 | Outpatient (RCR) | payer OTHER, SELFPAY ==
--- NOTE | 2022-12-27 12:35 | MHC.OT.EP ---
[address] [phone] Occupational Therapy Plan of Care Patient Name: Vanesa Oglesby Date of Evaluation: 12/27/22 Diagnosis: Distal radius fx w/ ORIF and CTR Pain Location: Pain in left thumb Currently: 4/10 Best: 3/10 Worst: 8/10 Pain Score: 4 Aggravating Factors: Thumb movement, gripping Alleviating Factors: Ice, ibuprofen Assessment: Pt is a 57 y/o female s/p L wrist ORIF and CTR by Dr. Powers on 12/06/22. She is 3 weeks post-op. Pt presents today with a removable velcro splint as her cast was removed early due to increased thumb pain and numbness. Orthotic should be worn at all times except for hygiene and gentle exercise. Vanesa's primary complaint is L thumb pain, numbness, and decreased digit ROM. A 61% limitation is reported per the Quick DASH assessment. 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 She will see Dr. Powers on 01/22 for a follow up visit. Pt will benefit from skilled OT to address noted barriers and assist in return to PLOF. Frequency and Duration: The patient will be seen 2w/wk for 6 weeks Short Term Goals: Decrease L thumb pain <3/10 IND with thermal modalities for pain mgt Improve wrist flex/ext by 10 degrees each IND with HEP [employer] Goals: Pain free w/ BADL's/IADL's Wrist flex/ext 50 degrees Thumb ROM WFL's IND with progression of HEP Quick DASH <25% Treatment Plan: Therapeutic Exercise Therapeutic Activity Home Exercise Program Patient Education Desensitization/Sensory Re-ed Ultrasound Paraffin Fluidotherapy MHP Soft Tissue Mobilization Electronically Signed By: Mary Vargas, OTR/L Please Sign and return to therapist. Thank you once again for your referral.
--- NOTE | 2023-02-14 16:30 | MHC.OT.OP ---
[address] [phone] F: [phone] Occupational Therapy Progress Note Patient Name: Vanesa Steele Burnash Diagnosis: Distal radius fx with ORIF Date of Surgery: 12/06/22 Date of Evaluation: 12/27/22 Treatments to Date: 12 Subjective: It's always my thumb I'm so done with this. It would be better if I could feel this finger Pain Score: 4 Pain Location: L wrist Objective Measures: Gross grasp R: 55# L: 15# Lateral pinch R: 13# L: 4# Wrist ROM: 45 degrees flexion / 35 deg ext Thumb: 35 degrees radial ABD. 45 degrees extension [place] Archie monfilaments D1-3.61 diminished light touch D2-D5 2.83 'normal sensation' Status: Progressing Assessment: Vanesa is approx 10 weeks s/p L distal radius fx w/ ORIF. She is making slow but steady gains in OT. She does c/o slight increase in pain today /, however can be pain free at rest. Wrist ROM is 45/35, gross grasp 15# on L compared to 55# on right. Pt demonstrates habit of over using finger extensors for wrist extension. She was educated in techniques to avoid this compensation today. Primary concern/limitation is R thumb function and decreased sensation. She is IND with modalities for pain management and HEP. Pt. would benefit from continued skilled OT (pt requesting to decrease to 1x/wk) for continued work on ROM, strength, and pain management. 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
--- NOTE | 2023-03-13 15:36 | MHC.OT.DC ---
[address] [phone] F: [phone] Occupational Therapy Discharge Note Patient Name: Vanesa Oglseby Provider: Maria Alejandra Schroeder Diagnosis: Distal radius fx with ORIF Date of Surgery: 12/06/22 Date of Evaluation: 12/27/22 Date of Discharge: Treatments to Date: 14 Cancellations to Date: No Shows to Date: Discharge Status: Achieved Goals Improved Function Independent with HEP Discharge Summary: Vanesa has progressed well in OT and is scheduled for discharge this date. Functional gains as follows: L wrist AROM is 45/45. Left thumb improved to 45 degrees radial Abd and extension. Her primarily complaints continue to be CMC thumb pain, wrist extension stiffness, and decreased sensation in the thumb. Sensation is improving in the index finger. Improvements in gross grasp by 5# and lateral pinch 2#. Pt was discharged from ortho and encouraged to cont w/ wrist ext and strengthening exercises. At this time, pt. is in agreement with discharge and IND with HEP. Instructed to call with any questions/concerns. Electronically Signed By: RUSSELL Mayfield/Allison Reviewed/agree with student documentation: Therapist: Please Sign and return to therapist, thank you for your referral.
== END 2023-03-13 15:36 | disposition home or self-care (01) ==
LOC: HO.OT 15:30
PROVIDERS: PCP Family Medicine; Visit Provider Physician Assistant
DX: S52.502D Unspecified fracture of the lower end of left radius, subsequent encounter for closed fracture with routine healing (principal)
CPT/HCPCS: 97033; 97110; 97140; 97165

== ENCOUNTER 2023-05-13 08:02 | Outpatient (REF) | payer OTHER, SELFPAY ==
[2023-05-13 11:54] LABS: Alanine Aminotransferase 16 U/L (0-31); Albumin Level 4.4 g/dL (3.5-5.0); Alkaline Phosphatase 63 U/L (39-117); Anion Gap 12 (12-20); Aspartate Amino Transferase 16 U/L (5-31); Bilirubin Total 0.4 mg/dL (0.0-1.0); Blood Urea Nitrogen 18 mg/dL (9-16); Calcium 9.5 mg/dL (8.4-10.2); Carbon Dioxide 23 mmol/L (22-29); Chloride 106 mmol/L (96-108); Cholesterol 238 mg/dL (<200); Estimated Glomerular Filt Rate > 60; Glucose Random 95 mg/dL (60-115); HDL Cholesterol 102 mg/dL (>40); LDL Cholesterol Calculated 123 mg/dL (<100); Magnesium 2.1 mg/dL (1.6-2.6); Potassium 3.8 mmol/L (3.3-5.1); Sodium 137 mmol/L (135-145); Total Protein 7.3 g/dL (6.5-8.0); Triglycerides 68 mg/dL (<150)
[2023-05-13 12:13] LABS: TSH reflex Free T4 3.31 uIU/mL (0.32-4.0); Vitamin D 25-OH Total 22.2 ng/mL (>30)
[2023-05-13 14:55] LABS: Vitamin B12 418 pg/mL (200-900)
== END 2023-05-13 08:03 | disposition home or self-care (01) ==
LOC: HO.HMGCLDS 08:02
PROVIDERS: Nurse Practitioner Family; PCP Family Medicine; Visit Provider Physician Assistant Surgical
DX: Z13.220 Encounter for screening for lipoid disorders (principal); R25.3 Fasciculation; M81.0 Age-related osteoporosis without current pathological fracture; E03.9 Hypothyroidism, unspecified
CPT/HCPCS: 36415; 80053; 80061; 82306; 82607; 83735; 84443

== ENCOUNTER 2023-05-23 11:55 | Outpatient (REF) | payer OTHER, SELFPAY ==
[2023-05-23 12:46] LABS: Influenza A PCR NEGATIVE (Negative); Influenza B PCR NEGATIVE (Negative); Resp Syncy Virus RNA Qual PCR NEGATIVE (Negative); SARS COV2 PCR INHOUSE NEGATIVE (Negative)
== END 2023-05-23 11:56 | disposition home or self-care (01) ==
LOC: HO.HMGCLNP 11:55
PROVIDERS: Visit Provider Nurse Practitioner Family
DX: Z11.52 Encounter for screening for COVID-19 (principal); Z20.822 Contact with and (suspected) exposure to COVID-19; R05.9 Cough, unspecified
CPT/HCPCS: 0241U

== ENCOUNTER 2023-06-20 09:03 | Outpatient (REF) | payer OTHER, SELFPAY ==
--- NOTE | ~2023-06-20 | CT_ITS ---
EXAMINATION: CT SOFT TISSUE NECK WITH CONTRAST CLINICAL INFORMATION: Cervicalgia, patient states change in voice and discomfort COMPARISON: None available. TECHNIQUE: Following the intravenous administration of 60 mL of Omnipaque 350 intravenous contrast, helical imaging was performed in the axial plane with generation of coronal and sagittal reformatted images. This CT examination was performed using dose optimization techniques as appropriate, variously including the following: *Automated exposure control *Adjustment of mA and/or kV according to patient size (this includes techniques or standardized protocols for targeted exams where dose is matched to indication/reason for exam; i.e. extremities or head) *Use of iterative reconstruction technique DLP: 275 mGy-cm FINDINGS: No suspicious enhancement. No suspiciously enlarged neck lymph node or mass. Evaluation of the oral cavity secondary to streak artifact from dental amalgam. Tiny right mylohyoid boutonniere. The nasopharynx, oropharynx, hypopharynx, and laryngeal structures are unremarkable. The parotid, submandibular, and thyroid glands are unremarkable. Sequela bilateral lens replacement. Otherwise, no orbital pathology. The paranasal sinuses and mastoid air cells are clear. The visualized vasculature of the neck are unremarkable. The visualized portions of the brain are unremarkable. No acute osseous abnormality. No lytic or blastic osseous lesions. Multilevel degenerative changes of the visualized spine. Emphysematous changes in the visualized lungs. Unchanged subpleural opacity in the right lung apex with associated pleural thickening. CT/CT soft tissue neck w IV con IMPRESSION: -No suspicious neck mass or cervical adenopathy. -Multilevel degenerative changes throughout the cervical spine. Otherwise, no abnormal findings to explain patient's symptoms.
[2023-06-20 11:31] LABS: MANUAL DIFF FLAG NO
[2023-06-20 11:42] LABS: Basophils Absolute Auto 0.1 X10*3/uL (0.0-0.2); Basophils Percent Auto 1.3 % (0-2); Eosinophils Absolute Auto 0.4 X10*3/uL (0.0-0.4); Eosinophils Percent Auto 5.8 % (0-4); Hematocrit 38.7 % (37.0-47.0); Hemoglobin 12.4 g/dl (12.0-16.0); Imm Gran Abs Auto 0.02 X10*3/uL (0.00-0.03); Imm Gran Pct Auto 0.3 % (0.0-0.4); Lymphocytes Absolute Auto 1.8 X10*3/uL (1.2-4.9); Lymphocytes Percent Auto 27.6 % (20-40); Mean Corpuscular Hemoglobin 28.7 pg (27.0-33.0); Mean Corpuscular Volume 89.6 fL (80.0-98.0); Mean Platelet Volume 10.8 fL (9.4-12.3); Monocytes Absolute Auto 0.3 X10*3/uL (0.1-1.2); Monocytes Percent Auto 4.6 % (2-11); Neutrophils Absolute Auto 3.8 x10*3/uL (2.0-8.3); Neutrophils Percent Auto 60.4 % (45-73); Platelet Count 216 X10*3/uL (160-400); Red Blood Count 4.32 X10*6/uL (4.20-5.50); Red Cell Distribution Width 13.9 % (11.0-16.0); White Blood Count 6.4 X10*3/uL (4.8-10.8)
[2023-06-20 11:46] LABS: Alanine Aminotransferase 20 U/L (0-31); Albumin Level 4.1 g/dL (3.5-5.0); Alkaline Phosphatase 73 U/L (39-117); Anion Gap 12 (12-20); Aspartate Amino Transferase 17 U/L (5-31); Bilirubin Total 0.3 mg/dL (0.0-1.0); Blood Urea Nitrogen 15 mg/dL (9-16); Calcium 9.5 mg/dL (8.4-10.2); Carbon Dioxide 26 mmol/L (22-29); Chloride 107 mmol/L (96-108); Estimated Glomerular Filt Rate > 60; Glucose Random 127 mg/dL (60-115); Potassium 3.8 mmol/L (3.3-5.1); Sodium 141 mmol/L (135-145)
[2023-06-20] MEDS: iohexoL 350 MG/ML 100 ML INFUS..BTL 60 ML IV (12:20)
[2023-06-21 09:38] LABS: CA 27.29 22 U/mL (<38)
== END 2023-06-20 09:04 | disposition home or self-care (01) ==
LOC: HO.CT 09:03
PROVIDERS: Internal Medicine Medical Oncology; PCP Family Medicine; Visit Provider Family Medicine
DX: C50.919 Malignant neoplasm of unspecified site of unspecified female breast (principal); M54.2 Cervicalgia; R49.0 Dysphonia
CPT/HCPCS: 36415; 70491; 80053; 85025; 86300; Q9967

== ENCOUNTER 2023-08-06 09:00 | Outpatient (AMB) | payer OTHER, SELFPAY ==
[2023-08-06 09:07] VITALS: BP 130/80; PULSE 76; O2SAT 96
--- NOTE | 2023-08-06 09:07 | AM.OFFWIN_ITS ---
Intake Vital Signs 08/06/23 09:07 Height 5 ft 6 in BP 130/80 Blood Pressure Location Rt brachial Position Sitting Pulse 76 Pulse Source Pulse Oximeter Pulse Oximetry (%) 96 Oxygen Delivery Method Room Air Intake Visit Reasons: EP rash rt side neck sore (at her desk) Intake Note: pt is here for rsh on right side neck sore Patient Tobacco Use Status: Former Tobacco user Quit Date: 2008 Allergies ketamine Allergy (Severe, Verified 08/06/23 09:37) Hallucinations amoxicillin [AMOXICILLIN] Allergy (Intermediate, Verified 08/06/23 09:37) hives/rash Penicillins [PENICILLINS] Allergy (Intermediate, Verified 08/06/23 09:37) hives/rash Medication List - Last Reconciled 08/06/23 by Colt Villanueva MD albuterol sulfate 90 mcg/actuation 90 mcg inhalation NEEDED budesonide-formoterol 160-4.5 mcg/actuation (Symbicort) 2 puffs inhalation BID PRN cetirizine 1 tab PO DAILY citalopram 20 mg PO DAILY fluticasone propionate 50 mcg/actuation 1 spray intranasal DAILY ibuprofen 600 mg PO Q6-8H PRN levothyroxine 1 tab PO DAILY meloxicam 15 mg PO DAILY mirabegron ER (Myrbetriq) 50 mg PO DAILY omalizumab (Xolair) 150 mg subcut Q2W omeprazole 1 cap PO DAILY trazodone 1 tab PO BEDTIME Do you need a note to return to daycare/school/sports/work: No HPI EP rash rt side neck sore (at her desk) HPI Details 57-year-old female presents to the offic e for a sick visit. Patient has a rash on the right side of her neck. Rash started yesterday. She describes it as painful PFSH Medical History Breast cancer COVID-19 vaccine administered Depression Fracture of 5th metatarsal Fracture of greater tuberosity of right humerus GERD (gastroesophageal reflux disease) History of breast cancer Hypothyroid Surgical History H/O colonoscopy History of arthroplasty of left knee History of esophagogastroduodenoscopy (EGD) Hx of appendectomy Hx of bilateral mastectomy Hx of breast reconstruction Hx of cataract extraction Hx of tonsillectomy Family History Other No family history of cancer Social History Household Members: Significant Other Housing: Apartment Are you a primary career development manager to a significant other at home: No Do you presently have visiting nurse or other home services: No Alcohol intake: never Patient Tobacco Use Status: Former Tobacco user Quit Date: 2008 Tobacco use type: Cigarette service: No Current occupational status: employed 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 Assessment & Plan Assessment & Plan (1) Rash: Code(s): R21 - Rash and other nonspecific skin eruption Plan: Diagnostic dilemma. Could be early herpes zoster or irritant dermatitis. Will treat it as the former with oral valacyclovir. If symptoms worsen, patient was encouraged to follow-up here. Coding Level of Care Code Est Pt Level 3 (34109) Diagnoses Rash R21
== END 2023-08-06 09:42 | disposition home or self-care (01) ==
PROVIDERS: PCP Family Medicine; Visit Provider Internal Medicine
DX: R21 Rash and other nonspecific skin eruption (principal)
CPT/HCPCS: 99213

== ENCOUNTER 2023-09-06 12:58 | Outpatient (REF) | payer OTHER, SELFPAY ==
--- NOTE | ~2023-09-06 | MM_ITS ---
EXAMINATION: BONE DENSITOMETRY CLINICAL INDICATION: Follow up osteoporosis. COMPARISON: Baseline BD dated 09/27/2016. TECHNIQUE: Using a [employer]keeper DXA System (software version: 13.1) manufactured by [employer], dual-energy x-ray absorptiometry was performed of the lumbar spine and left hip. The images are of good technical quality. Summary results are attached. FINDINGS: LEFT FEMUR, NECK: Current: BMD 0.725 g/cm2, Z-score -1.5, T-score -2.3, osteopenia. Baseline: BMD 0.801 g/cm2. LEFT FEMUR, TOTAL: Current: BMD 0.801 g/cm2, Z-score -1.2, T-score -1.6, osteopenia, 6.1% decrease from baseline (<5% change is not significant). Baseline: BMD 0.853 g/cm2. AP SPINE L1-L4: Current: BMD 0.843 g/cm2, Z-score -2.4, T-score -2.8, osteoporosis, 1.9% increase from baseline (<5% change is not significant). Baseline: BMD 0.827 g/cm2. IDENTIFIED RISK FACTORS: Menopause, history of fracture (adult), osteoporosis, recurrent falls. HISTORY OF FRACTURE: Shoulder, wrist, other. MEDICATIONS: Multivitamin, vitamin D. MM/XR DEXA axial skeleton IMPRESSION: 1. DIAGNOSIS: Severe osteoporosis based on the lowest T-score value of -2.8 in the lumbar spine and history of fracture of wrist and shoulder applying World Health Organization criteria. 2. 10-YEAR FRACTURE RISK PREDICTION, FRAX: According to the guidelines, FRAX calculation should only be performed on patients in the osteopenia bone density category. Therefore, FRAX was not performed on this patient. 3. Treatment Recommendations: NOF guidelines recommend consideration for treatment in postmenopausal women and men age 50 and older presenting with the following: -A hip or vertebral (clinical or morphometric) fracture. -T-score less than or equal to -2.5 at the femoral neck or spine after appropriate evaluation to exclude secondary causes. -Low bone mass at the hip or spine and a 10-year fracture probability by FRAX of greater than or equal to 3% for hip fracture or greater than or equal to 20% for major osteoporotic fracture based on the [place] adapted WHO algorithm. 4. Other Recommendations: All treatment decisions require clinical judgment and consideration of individual patient factors, including patient preferences, comorbidities, previous drug use, risk factors not captured in the FRAX model (e.g. frailty, falls, vitamin D deficiency, increased bone turnover, interval significant decline in bone density) and possible under or overestimation of fracture risk by FRAX. Additional medical evaluation for secondary cause of low bone mineral density may be appropriate. FUTURE SCAN RECOMMENDATION: People with diagnosed cases of osteoporosis or at high risk for fracture should have regular bone mineral density tests. For patients eligible for Medicare, routine testing is allowed once every 2 years. The testing frequency can be increased to one year for patients who have rapidly progressing disease, those who are receiving or discontinuing medical therapy to restore bone mass, or have additional risk factors.
== END 2023-09-06 12:59 | disposition home or self-care (01) ==
LOC: HO.MAMMO 12:58
PROVIDERS: PCP Family Medicine; Visit Provider Internal Medicine Medical Oncology
DX: Z13.820 Encounter for screening for osteoporosis (principal); Z78.0 Asymptomatic menopausal state; M81.0 Age-related osteoporosis without current pathological fracture
CPT/HCPCS: 77080

== ENCOUNTER 2023-09-26 08:20 | Outpatient (REF) | payer OTHER, SELFPAY ==
[2023-09-26 13:16] LABS: MANUAL DIFF FLAG NO
[2023-09-26 13:28] LABS: Basophils Absolute Auto 0.1 X10*3/uL (0.0-0.2); Basophils Percent Auto 1.5 % (0-2); Eosinophils Absolute Auto 0.4 X10*3/uL (0.0-0.4); Eosinophils Percent Auto 5.1 % (0-4); Hematocrit 40.6 % (37.0-47.0); Hemoglobin 13.1 g/dl (12.0-16.0); Imm Gran Abs Auto 0.02 X10*3/uL (0.00-0.03); Imm Gran Pct Auto 0.3 % (0.0-0.4); Lymphocytes Absolute Auto 2.3 X10*3/uL (1.2-4.9); Lymphocytes Percent Auto 31.9 % (20-40); Mean Corpuscular HGB Conc 32.3 g/dl (31.0-35.0); Mean Corpuscular Hemoglobin 29.6 pg (27.0-33.0); Mean Corpuscular Volume 91.6 fL (80.0-98.0); Mean Platelet Volume 10.7 fL (9.4-12.3); Monocytes Absolute Auto 0.4 X10*3/uL (0.1-1.2); Monocytes Percent Auto 5.5 % (2-11); Neutrophils Percent Auto 55.7 % (45-73); Platelet Count 247 X10*3/uL (160-400); Red Blood Count 4.43 X10*6/uL (4.20-5.50); Red Cell Distribution Width 13.4 % (11.0-16.0); White Blood Count 7.3 X10*3/uL (4.8-10.8)
[2023-09-26 13:54] LABS: Alanine Aminotransferase 17 U/L (0-31); Albumin Level 4.3 g/dL (3.5-5.0); Alkaline Phosphatase 72 U/L (39-117); Amylase 44 U/L (28-100); Anion Gap 14 (12-20); Aspartate Amino Transferase 16 U/L (5-31); Bilirubin Direct 0.2 mg/dL (0.0-0.5); Bilirubin Total 0.3 mg/dL (0.0-1.0); Blood Urea Nitrogen 15 mg/dL (9-16); Calcium 9.9 mg/dL (8.4-10.2); Carbon Dioxide 25 mmol/L (22-29); Chloride 107 mmol/L (96-108); Estimated Glomerular Filt Rate > 60; Glucose Random 106 mg/dL (60-115); Lipase 22 U/L (8-78); Potassium 3.9 mmol/L (3.3-5.1); Sodium 142 mmol/L (135-145); Total Protein 7.3 g/dL (6.5-8.0)
== END 2023-09-26 08:21 | disposition home or self-care (01) ==
LOC: HO.HMGCLDS 08:20
PROVIDERS: PCP Family Medicine; Visit Provider Internal Medicine
DX: R11.0 Nausea (principal); R14.0 Abdominal distension (gaseous); R10.13 Epigastric pain
CPT/HCPCS: 36415; 80048; 80076; 82150; 83690; 85025

== ENCOUNTER 2023-10-03 08:05 | Outpatient (REF) | payer OTHER, SELFPAY ==
--- NOTE | ~2023-10-03 | US_ITS ---
EXAMINATION: US ABDOMEN COMPLETE CLINICAL INFORMATION: Epigastric pain, abdominal bloating. COMPARISON: CT urogram 10/22/2022. Renal ultrasound 02/07/2017. Ultrasound abdomen complete 06/11/2016. TECHNIQUE: Real-time imaging of the abdominal viscera. Technically limited study secondary to bowel gas. FINDINGS: PANCREAS: Limited visualization of pancreatic tail and head. Imaged portion of pancreatic body is unremarkable. ABDOMINAL AORTA: Limited visualization. Imaged portions are unremarkable. INFERIOR VENA CAVA: Visualized portions are normal. LIVER: Increased hepatic parenchymal heterogeneity and echogenicity could be associated with hepatocellular disease/hepatic steatosis and substantially limits visualization. Correlation with liver function tests and clinical exam recommended to determine further management. The liver contour is normal. GALLBLADDER: Gallbladder appears small, possibly contracted, limiting evaluation. Gallbladder wall thickness of 2 mm. Echogenic bile within the gallbladder. COMMON BILE DUCT: Normal in caliber measuring 0.13 cm in diameter. RIGHT KIDNEY: No hydronephrosis. No renal calculi. Limited visualization. The kidney measures 8.7 cm in maximum dimension. LEFT KIDNEY: No hydronephrosis. No renal calculi. Limited visualization. The kidney measures 10.2 cm in maximum dimension. SPLEEN: Normal. The spleen measures 9.8 cm in maximum dimension. FREE FLUID: None. US/US abdomen complete IMPRESSION: 1. Increased hepatic parenchymal heterogeneity and echogenicity could be associated with hepatocellular disease/hepatic steatosis and substantially limits visualization. Correlation with liver function tests and clinical exam recommended to determine further management. 2. Gallbladder appears small, possibly contracted, limiting evaluation. Echogenic bile within the gallbladder.
== END 2023-10-03 08:06 | disposition home or self-care (01) ==
LOC: HO.HMGCX 08:05
PROVIDERS: PCP Family Medicine; Visit Provider Internal Medicine
DX: R10.13 Epigastric pain (principal); R14.0 Abdominal distension (gaseous)
CPT/HCPCS: 76700

== ENCOUNTER 2023-10-05 10:07 | Outpatient (AMB) | payer OTHER, SELFPAY ==
--- NOTE | 2023-10-05 10:36 | AM.OFFWIN_ITS ---
Intake Vital Signs 3 10/05/23 10:38 Height 5 ft 6 in Weight 175 lb BMI 28.2 BP 120/80 Blood Pressure Location Lt brachial Position Sitting Pulse 78 Pulse Source Pulse Oximeter Pulse Oximetry (%) 94 Oxygen Delivery Method Room Air Intake Visit Reasons: Est/ leg pain Intake Note: Patient here for left hip pain that started yesterday while shopping, she states the pain is radiating down the leg now. she states this has happened in the past. Patient Tobacco Use Status: Former Tobacco user Quit Date: 2008 Allergies ketamine Allergy (Severe, Verified 10/05/23 10:58) Hallucinations amoxicillin [AMOXICILLIN] Allergy (Intermediate, Verified 10/05/23 10:58) hives/rash Penicillins [PENICILLINS] Allergy (Intermediate, Verified 10/05/23 10:58) hives/rash Do you need a note to return to daycare/school/sports/work: No HPI HPI Comments 2 History of Present Illness0 Details Here today with complaints of acute left hip pain that started a few days ago while shopping. The only activity that was abnormal was CPR. recert that was the day before the onset of her symptoms. Reports she was in her normal state of health until all the sudden she developed a deep left hip pain that radiated into her left anterior thigh with some radiation that stops above the level of the knee. She did have some nausea associated with the pain however she was able to continue on her shopping trip in order to [employer]. However it was at that time that her pain became worse and she had to go home. She has been favoring that left hip since. Has taken meloxicam and ibuprofen along with applying heat with very minimal relief. She has a history of a partia thel left knee replacement on that side. She also has osteopenia and osteoarthritis. She denies any overt trauma. She denies any fever, chills. She does admit to headache but does not think this is related to this rather related to her allergies. She reports normal voiding. Denies history of renal stones. Denies any red flag symptoms associated with back pain. [facility] Medical History Breast cancer COVID-19 vaccine administered Depression Fracture of 5th metatarsal Fracture of greater tuberosity of right humerus GERD (gastroesophageal reflux disease) History of breast cancer Hypothyroid Surgical History H/O colonoscopy History of arthroplasty of left knee History of esophagogastroduodenoscopy (EGD) Hx of appendectomy Hx of bilateral mastectomy Hx of breast reconstruction Hx of cataract extraction Hx of tonsillectomy Family History Other No family history of cancer Social History Household Members: Significant Other Housing: Apartment Are you a primary pet care assistant to a significant other at home: No Do you presently have visiting nurse or other home services: No Alcohol intake: never Patient Tobacco Use Status: Former Tobacco user Tobacco use type: Cigarette service: No Current occupational status: employed 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 No spinal or paraspinal pain with palpation. No CVAT. No abdominal tenderness. No edema, erythema or deformity of the joint. Reports pain with external rotation in the left hip. Upper/lower leg/hip images: 2 1. Pain with palpation over left greater trochanter Assessment & Plan Assessment & Plan (1) Trochanteric bursitis of left hip: Code(s): M70.62 - Trochanteric bursitis, left hip Plan: . Medications: New 2 cyclobenzaprine 10 mg PO Q8H 5 days PRN 15 tabs 0RF muscle spasm prednisone 50 mg PO DAILY 5 days 5 tabs 0RF Patient Instructions: Take medication as directed. Be sure to take the prednisone with food. Avoid other NSAIDs while taking prednisone. You can apply heat or ice whichever is alleviating for you. Tomorrow start some gentle exercises and stretching. If your symptoms worsen or continue please be sure to follow-up with her primary care provider. Coding Level of Care Code Est Pt Level 4 (68069) Diagnoses Trochanteric bursitis of left hip M70.62
[2023-10-05 10:38] VITALS: BP 120/80; PULSE 78; O2SAT 94; BMI 28.2
== END 2023-10-05 11:41 | disposition home or self-care (01) ==
PROVIDERS: PCP Family Medicine; Visit Provider Nurse Practitioner Family
DX: M70.62 Trochanteric bursitis, left hip (principal)
CPT/HCPCS: 99051; 99214

== ENCOUNTER 2023-11-08 06:51 | Day surgery (SDC) | payer OTHER, SELFPAY ==
[2023-11-05 13:43] VITALS: BMI 28.7
[2023-11-08 07:12] VITALS: BMI 29.0
[2023-11-08 07:22] VITALS: BP 125/75; PULSE 70; RESP 15; TEMP 36.6; O2SAT 96
[2023-11-08] MEDS: Lactated Ringers 1,000 ML 50 ML IVCONT (07:29)
--- NOTE | 2023-11-08 07:58 | P.CONAN_ITS ---
[facility] Active Problems Active Problems: All Active Problems Trochanteric bursitis of left hip (Acute) Cough (Acute) Carpal tunnel syndrome of left wrist (Acute) Distal radius fracture, left (Acute) OAB (overactive bladder) (Acute) Post-menopausal atrophic vaginitis (Acute) Urge incontinence (Acute) Sensation of pressure in bladder area (Acute) Incontinence (Acute) Microhematuria (Acute) Osteoporosis (Acute) Triple negative malignant neoplasm of breast (Acute) Hypothyroid (Acute) GERD (gastroesophageal reflux disease) (Acute) Depression (Acute) Past Medical History Medical History COPD (chronic obstructive pulmonary disease) Osteoporosis Fracture of greater tuberosity of right humerus Breast cancer GERD (gastroesophageal reflux disease) Depression Fracture of 5th metatarsal Hypothyroid History of breast cancer Family History Family History Other No family history of cancer Family history of problems with anesthesia: No Surgical History Surgical History Hx of hand surgery Hx of tonsillectomy Hx of appendectomy Hx of breast reconstruction Hx of bilateral mastectomy Hx of cataract extraction History of esophagogastroduodenoscopy (EGD) H/O colonoscopy History of arthroplasty of left knee History of Problems with Anesthesia: No Social History Social History Household Members: Significant Other Housing: Apartment Are you a primary vision care associate to a significant other at home: No Do you presently have visiting nurse or other home services: No Alcohol intake: never Patient Tobacco Use Status: Former Tobacco user Tobacco use type: Cigarette Use of substances other than those prescribed or required for medical reasons: No Are you DNR?: No Advance Directives: No Advance Directives Information Provided: Yes service: No Current occupational status: employed 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 Allergies Allergy/AdvReac Type Severity Reaction Status Date / Time ketamine Allergy Severe Hallucinati Verified 11/08/23 07:04 ons amoxicillin [AMOXICILLIN] Allergy Intermediate hives/rash Verified 11/08/23 07:04 Penicillins [PENICILLINS] Allergy Intermediate hives/rash Verified 11/08/23 07:04 Active Medications: Current Medications Lactated Ringer's (Lr) 1,000 mls @ 50 mls/hr IVCONT .Q20H ALANNAH Last Admin: 11/08/23 07:29 Dose: 50 mls/hr Home Medications ?Medication ?Instructions ?Recorded ?Confirmed ?Last Taken ?Type albuterol sulfate 90 mcg/actuation 90 mcg inhalation NEEDED 06/24/20 11/05/23 Unknown History aerosol inhaler bronchospasm budesonide-formoterol HFA 160 2 puff inhalation BID PRN Wheezing 06/24/20 11/05/23 Unknown History mcg-4.5 mcg/actuation aerosol inhaler (Symbicort) citalopram 10 mg tablet 20 mg PO DAILY 06/24/20 11/05/23 Unknown History levothyroxine 75 mcg tablet 1 tab PO DAILY 06/24/20 11/05/23 11/08/23 05:40 History omeprazole 20 mg capsule,delayed 1 cap PO DAILY 06/24/20 11/05/23 11/08/23 05:40 History release trazodone 50 mg tablet 1 tab PO BEDTIME PRN Insomnia 06/24/20 11/05/23 Unknown History omalizumab 150 mg/mL subcutaneous 150 mg subcut Q2W 12/16/20 11/05/23 Unknown History syringe (Xolair) Probiotic PO DAILY 11/08/23 Unknown History Vitamin D3 PO DAILY 11/08/23 Unknown History levocetirizine 5 mg tablet 5 mg PO DAILY 11/08/23 11/08/23 11/08/23 05:40 History milk thistle PO DAILY 11/08/23 Unknown History jjnbawvi-rzo-dwlln ac 400 1 tab PO DAILY 11/08/23 11/08/23 Unknown History mcg-calcium carb 500 mg-vit K1 20 mcg tablet (Women's 50 Plus Multivitamin) Exam Height,Weight and Vital Signs: Height 5 ft 6 in Weight 81.465 kg Last Vital Signs Temp 97.9 F 11/08/23 07:22 Pulse 70 11/08/23 07:22 Resp 15 11/08/23 07:22 BP 125/75 11/08/23 07:22 Pulse Ox 96 11/08/23 07:22 O2 Del Method Room Air 11/08/23 07:22 Airway Mallampati Class: III (prominent upper incisors) TM Dist: >3cm Neck ROM: Full Heart: RRR Lungs: CTA Assessment and Plan Final Anesthetic Review Family History of Problems with Anesthesia: No History of Problems with Anesthesia: No NPO: Yes ASA Class: II Final Preanesthetic Review: Meds/Allgs Chart Reviewed, Consent Obtained/Reviewed and Anes Risks/Benef Reviewed Patient Risk: Low Procedure Risk: Intermediate Anesthetic Plan Anesthetic Plan: MAC: Disposition: Standard PACU
[2023-11-08 08:36] VITALS: BP 122/73; PULSE 99; RESP 16; TEMP 36.6; O2SAT 97
--- NOTE | 2023-11-08 08:43 | PM.OP ---
Brief Operative Note Date of Service: 11/08/23 Pre-op diagnosis: Abdominal pain Post-op diagnosis: other (Hiatal hernia) Procedure: EGD with biopsies Surgeon: Kali Neri MD Anesthesia: MAC Was an Non Destructive Evaluation Manager used for this Procedure?: No Estimated blood loss (mL): 2.0 Pathology: other (A. Descending duodenum B. Gastric antrum) Condition: stable Disposition: PACU
[2023-11-08 08:51] VITALS: BP 122/70; PULSE 70; RESP 18; TEMP 36.5; O2SAT 100
--- NOTE | 2023-11-08 08:58 | OP_ITS ---
DATE OF SERVICE: 11/08/2023 SURGEON: Kali Neri MD INDICATIONS: The patient presents for evaluation of abdominal pain. Full consent was obtained from her for this, including risks of bleeding and perforation. PREOPERATIVE DIAGNOSIS: Abdominal pain. POSTOPERATIVE DIAGNOSIS: PROCEDURE PERFORMED: Esophagogastroduodenoscopy with biopsies. ESTIMATED BLOOD LOSS: COMPLICATIONS: ANESTHESIA: Medication used, monitored anesthesia care. ASSISTANTS: SPECIMENS: POSTOPERATIVE DIAGNOSES: Abdominal pain, rule out celiac disease, rule out H pylori, hiatal hernia. DESCRIPTION OF PROCEDURE: The patient was placed in left lateral decubitus position. The Olympus video gastroscope was passed in the posterior oropharynx and upper esophagus under direct vision. The scope was passed slowly into the distal esophagus. The gastroesophageal junction appeared at 35 cm. There was no sign of any esophagitis nor Ochoa esophagus. The scope entered the stomach. There was a small hiatal hernia. The hiatal hernia mucosa appeared normal. The scope was advanced to pylorus and the duodenum was cannulated to the descending portion. The duodenum including the bulb appeared normal without mass or ulceration. Biopsies were obtained from the descending duodenum. The scope was withdrawn back to the stomach. The gastric antrum and body appeared normal with good peristalsis. Antral biopsies were obtained. The scope was retroflexed, visualizing the proximal stomach carefully, which appeared normal, without any sign of mass or ulceration. The scope was straightened. There was good peristalsis. The scope was withdrawn back to the esophagus where the esophageal mucosa appeared normal. The scope was withdrawn from the patient. She tolerated the procedure well and was returned to recovery area in stable condition. IMPRESSION: 1. Hiatal hernia. 2. Rule out celiac disease. 3. Rule out H pylori. PLAN: The results of biopsies will be checked. She does report that she has been using famotidine on a p.r.n. basis for any abdominal discomfort with relief. She has not been needing it every day. She was advised not to use any aspirin or NSAIDs for at least a week. Her previous workup including LFTs, pancreatic enzymes and blood count were normal. She did have an abdominal ultrasound describing some fatty liver but no sign of any biliary disease nor gallstones. Given her normal LFTs, I do not think the fatty liver needs to be addressed other than just trying to watch her diet and losing some weight. If things are stable, she will see me on a p.r.n. basis. She will be due for a followup colonoscopy in 2025 for screening. MD SILVIO Marie/MARIPOSA / [phone]
== END 2023-11-08 09:28 | disposition home or self-care (01) ==
PROVIDERS: PCP Family Medicine; Visit Provider Internal Medicine
PROC: 0DJ08ZZ Inspection of Upper Intestinal Tract, Via Natural or Artificial Opening Endoscopic (ICD-10-PCS; CPT 43235; principal; 2023-11-08 08:20)
DX: R10.13 Epigastric pain (principal); R11.0 Nausea; R14.0 Abdominal distension (gaseous); K44.9 Diaphragmatic hernia without obstruction or gangrene; Z86.010 Personal history of colon polyps; K76.0 Fatty (change of) liver, not elsewhere classified; E03.9 Hypothyroidism, unspecified; Z85.3 Personal history of malignant neoplasm of breast; Z79.899 Other long term (current) drug therapy; Z88.0 Allergy status to penicillin; Z88.1 Allergy status to other antibiotic agents; Z87.891 Personal history of nicotine dependence
CPT/HCPCS: 43239; 88305; 88313; 88342; J1596; J2704

== ENCOUNTER 2023-11-27 08:35 | Outpatient (AMB) | payer OTHER, SELFPAY ==
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
[2023-11-27 08:46] VITALS: BP 115/62; PULSE 83; RESP 16; O2SAT 97; BMI 28.9
== END 2023-11-27 09:14 | disposition home or self-care (01) ==
PROVIDERS: PCP Family Medicine; Visit Provider Student in an Organized Health Care Education/Training Program
DX: M80.00XA Age-related osteoporosis with current pathological fracture, unspecified site, initial encounter for fracture (principal); M79.7 Fibromyalgia
CPT/HCPCS: 99204

== ENCOUNTER → 2023-11-27 08:35 | Outpatient (BNVA) | payer OTHER, SELFPAY | PROVIDERS: PCP Family Medicine; Visit Provider Student in an Organized Health Care Education/Training Program ==

== ENCOUNTER 2024-01-16 12:00 | Outpatient (REF) | payer OTHER, SELFPAY ==
[2024-01-16 13:47] LABS: Parathyroid Hormone Intact 40.9 pg/mL (8.7-77.1)
[2024-01-16 14:07] LABS: Alanine Aminotransferase 21 U/L (0-31); Albumin Level 4.2 g/dL (3.5-5.0); Alkaline Phosphatase 77 U/L (39-117); Anion Gap 12 (12-20); Aspartate Amino Transferase 20 U/L (5-31); Bilirubin Total 0.3 mg/dL (0.0-1.0); Blood Urea Nitrogen 18 mg/dL (9-16); Carbon Dioxide 25 mmol/L (22-29); Chloride 106 mmol/L (96-108); Estimated Glomerular Filt Rate > 60; Glucose Random 129 mg/dL (60-115); Magnesium 2.1 mg/dL (1.6-2.6); Phosphorus 3.7 mg/dL (2.7-4.5); Potassium 4.1 mmol/L (3.3-5.1); Sodium 139 mmol/L (135-145); TSH reflex Free T4 1.16 uIU/mL (0.32-4.0); Total Protein 7.1 g/dL (6.5-8.0); Vitamin D 25-OH Total 42.2 ng/mL (>30)
== END 2024-01-16 12:01 | disposition home or self-care (01) ==
LOC: HO.HMGCLDS 12:00
PROVIDERS: PCP Family Medicine; Visit Provider Student in an Organized Health Care Education/Training Program
DX: M81.0 Age-related osteoporosis without current pathological fracture (principal)
CPT/HCPCS: 36415; 80053; 82306; 83735; 83970; 84100; 84443

== ENCOUNTER 2024-01-17 08:02 | Outpatient (REF) | payer OTHER, SELFPAY ==
[2024-01-31 08:44] LABS: Collagen Type I C-Telopeptide 307
== END 2024-01-17 08:03 | disposition home or self-care (01) ==
LOC: HO.HMGCLDS 08:02
PROVIDERS: PCP Family Medicine; Visit Provider Student in an Organized Health Care Education/Training Program
DX: M81.0 Age-related osteoporosis without current pathological fracture (principal)
CPT/HCPCS: 36415; 82523

== ENCOUNTER 2024-01-24 15:57 | Outpatient (AMB) | payer OTHER, SELFPAY ==
[2024-01-24 16:00] VITALS: BP 112/66; PULSE 69; O2SAT 96; BMI 28.4
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
== END 2024-01-24 16:27 | disposition home or self-care (01) ==
PROVIDERS: PCP Family Medicine; Visit Provider Student in an Organized Health Care Education/Training Program
DX: M80.00XA Age-related osteoporosis with current pathological fracture, unspecified site, initial encounter for fracture (principal)
CPT/HCPCS: 99213

== ENCOUNTER → 2024-01-24 15:57 | Outpatient (BNVA) | payer OTHER, SELFPAY | PROVIDERS: PCP Family Medicine; Visit Provider Student in an Organized Health Care Education/Training Program ==

== ENCOUNTER 2024-02-10 07:59 | Outpatient (AMB) | payer OTHER, SELFPAY ==
--- NOTE | 2024-02-10 08:18 | AM.OFFWIN_ITS ---
Intake Vital Signs 02/10/24 08:21 Height 5 ft 6 in BP 130/80 Blood Pressure Location Rt brachial Position Sitting Pulse 97 Pulse Source Pulse Oximeter Pulse Oximetry (%) 94 Oxygen Delivery Method Room Air Intake Visit Reasons: EP cough, Sore throat, chest congestion Patient Tobacco Use Status: Former Tobacco user Allergies ketamine Allergy (Severe, Verified 11/27/23 08:45) Hallucinations amoxicillin [AMOXICILLIN] Allergy (Intermediate, Verified 11/27/23 08:45) hives/rash Penicillins [PENICILLINS] Allergy (Intermediate, Verified 11/27/23 08:45) hives/rash HPI HPI Comments History of Present Illness Details A 58-year-old female complaining of 3 days of shortness of breath and chest congestion and sore throat. She denies any headaches, ear pain, sinus pain or fevers. She has been taking Tylenol PM with mild relief in her symptoms. Of note, patient just had COVID in December. COUNTS INCLUDE 234 BEDS AT THE [facility] Medical History COPD (chronic obstructive pulmonary disease) Osteoporosis Fracture of greater tuberosity of right humerus Breast cancer GERD (gastroesophageal reflux disease) Depression Fracture of 5th metatarsal Hypothyroid History of breast cancer Surgical History Hx of hand surgery Hx of tonsillectomy Hx of appendectomy Hx of breast reconstruction Hx of bilateral mastectomy Hx of cataract extraction History of esophagogastroduodenoscopy (EGD) H/O colonoscopy History of arthroplasty of left knee Family History Other No family history of cancer Social History Household Members: Significant Other Housing: Apartment Are you a primary childcare center director to a significant other at home: No Do you presently have visiting nurse or other home services: No Alcohol intake: never Patient Tobacco Use Status: Former Tobacco user Tobacco use type: Cigarette service: No Current occupational status: employed 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 Review of Systems Const All systems reviewed & are unremarkable except as noted in HPI and below Physical Exam Const General: cooperative, healthy appearing, comfortable and no acute distress Orientation/consciousness: patient oriented x3 Limitations: no limitations HEENT Head: Yes normal to inspection Ears: hearing grossly normal bilaterally, external ears normal and TM's normal bilaterally General nose exam: Normal external nose present, Normal nares present and No nasal discharge present Face and sinus: Yes normal facial exam and Yes sinuses nontender Mouth: Normal oral and palatal mucosa present and moist mucous membranes Throat: Yes tonsils normal, Yes uvula midline and Yes posterior oropharynx abnormal (Erythema) Eyes General: appearance normal, both eyes and all related structures Neck Neck: Yes normal visual inspection Resp Effort & Inspection: normal respiratory effort, able to speak in complete sentences, Actively coughing, no respiratory distress, not tachypneic, no tripod positioning and no use of accessory muscles Auscultation: clear to auscultation bilaterally Cardio Rate: regular rate Rhythm: regular rhythm Heart sounds: normal S1 and S2 Skin General skin exam: no rashes or lesions noted Neuro General: patient oriented x3 Extrem General: Yes normal to inspection and Yes no clubbing, cyanosis or edema Assessment & Plan Assessment & Plan (1) URI (upper respiratory infection): Code(s): J06.9 - Acute upper respiratory infection, unspecified Qualifiers: URI type: unspecified viral URI Qualified Code(s): J06.9 - Acute upper respiratory infection, unspecified Plan: Vital signs are stable however oxygenation is a tad bit low so we will get a chest x-ray to rule out a pneumonia. Plan See above Orders: Orders XR chest 2V Today R05.9 - Cough, unspecified Coding Level of Care Code New Pt Level 4 (78364) Diagnoses Viral upper respiratory tract infection J06.9 URI type: unspecified viral URI
[2024-02-10 08:21] VITALS: BP 130/80; PULSE 97; O2SAT 94
== END 2024-02-10 09:40 | disposition home or self-care (01) ==
PROVIDERS: PCP Family Medicine; Visit Provider Physician Assistant
DX: J06.9 Acute upper respiratory infection, unspecified (principal)

== ENCOUNTER → 2024-02-10 07:59 | Outpatient (BNVA) | payer OTHER, SELFPAY | PROVIDERS: PCP Family Medicine; Visit Provider Physician Assistant ==

== ENCOUNTER 2024-02-10 08:10 | Outpatient (REF) | payer OTHER, SELFPAY ==
--- NOTE | ~2024-02-10 | XR_ITS ---
EXAMINATION: XR CHEST CLINICAL INFORMATION: Cough COMPARISON: CT chest 11/27/2022 TECHNIQUE: 2 views of the chest were obtained. FINDINGS: Cardiomediastinal silhouette is normal in size. Hyperexpanded lungs. No consolidation, pleural effusion or pneumothorax. No acute osseous abnormalities. Bilateral breast prostheses. XR/XR chest 2V IMPRESSION: Hyperexpanded lungs. No acute cardiopulmonary process. Electronically signed by: Kali Campbell MD 02/10/2024 09:27 AM EDT
== END 2024-02-10 08:11 | disposition home or self-care (01) ==
LOC: HO.HMGCX 08:10
PROVIDERS: PCP Family Medicine; Visit Provider Physician Assistant
DX: J06.9 Acute upper respiratory infection, unspecified (principal); R05.9 Cough, unspecified
CPT/HCPCS: 71046

== ENCOUNTER → 2024-03-12 08:44 | Outpatient (BNVA) | payer OTHER, SELFPAY | PROVIDERS: PCP Family Medicine; Visit Provider Family Medicine | DX: Z23 Encounter for immunization (principal) | CPT/HCPCS: 90471; 90715 ==

== ENCOUNTER 2024-03-12 08:52 | Outpatient (AMB) | payer OTHER, SELFPAY ==
--- NOTE | 2024-03-12 08:54 | AM.OFFWIN_ITS ---
Intake Vital Signs 03/12/24 09:09 Weight 176 lb BP 120/80 Blood Pressure Location Lt brachial Position Sitting Pulse 84 Pulse Source Pulse Oximeter Pulse Oximetry (%) 98 Oxygen Delivery Method Room Air Intake Visit Reasons: EP Tdap Patient Tobacco Use Status: Former Tobacco user Allergies ketamine Allergy (Severe, Verified 11/27/23 08:45) Hallucinations amoxicillin [AMOXICILLIN] Allergy (Intermediate, Verified 11/27/23 08:45) hives/rash Penicillins [PENICILLINS] Allergy (Intermediate, Verified 11/27/23 08:45) hives/rash HPI HPI Comments History of Present Illness Details Patient is a 58-year-old female requesting a Tdap. She tells me she has a baby and the family and she wants to protect the baby from pertussis. She does not know when her last Tdap was. She denies any feelings of sickness today. [facility] Medical History COPD (chronic obstructive pulmonary disease) Osteoporosis Fracture of greater tuberosity of right humerus Breast cancer GERD (gastroesophageal reflux disease) Depression Fracture of 5th metatarsal Hypothyroid History of breast cancer Surgical History Hx of hand surgery Hx of tonsillectomy Hx of appendectomy Hx of breast reconstruction Hx of bilateral mastectomy Hx of cataract extraction History of esophagogastroduodenoscopy (EGD) H/O colonoscopy History of arthroplasty of left knee Family History Other No family history of cancer Social History Household Members: Significant Other Housing: Apartment Are you a primary career developer to a significant other at home: No Do you presently have visiting nurse or other home services: No Alcohol intake: never Patient Tobacco Use Status: Former Tobacco user Tobacco use type: Cigarette service: No Current occupational status: employed 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 Review of Systems Const All systems reviewed & are unremarkable except as noted in HPI and below Physical Exam Vital Signs: Last Vital Signs Pulse 84 03/12/24 09:09 BP 120/80 03/12/24 09:09 Pulse Ox 98 03/12/24 09:09 Oxygen Delivery Method Room Air 03/12/24 09:09 Const General: cooperative, healthy appearing, comfortable, no acute distress and well developed Orientation/consciousness: patient oriented x3 Limitations: no limitations HEENT Head: Yes normal to inspection Ears: hearing grossly normal bilaterally General nose exam: Normal external nose present Face and sinus: Yes normal facial exam Eyes General: appearance normal, both eyes and all related structures Neck Neck: Yes normal visual inspection and Yes full ROM Resp Effort & Inspection: normal respiratory effort and able to speak in complete sentences Skin General skin exam: no rashes or lesions noted Neuro General: patient oriented x3 Extrem General: Yes normal to inspection Assessment & Plan Assessment & Plan (1) Need for Tdap vaccination: Code(s): Z23 - Encounter for immunization Plan: Tdap administered by MA Plan see above Orders: Orders TDaP Immunization Today Z23 - Encounter for immunization Medications: New Boostrix Tdap (diphth,pertus(acell),tetanus) 0.5 mL IM ONCE 0.5 mL 0RF NS Z23 - Encounter for immunization Coding Level of Care Code New Pt Level 2 (53266) Diagnoses Need for Tdap vaccination Z23
[2024-03-12 09:09] VITALS: BP 120/80; PULSE 84; O2SAT 98
== END 2024-03-12 09:18 | disposition home or self-care (01) ==
PROVIDERS: PCP Family Medicine; Visit Provider Physician Assistant
DX: Z23 Encounter for immunization (principal)

== ENCOUNTER 2024-04-17 12:50 | Outpatient (RCR) | payer OTHER, SELFPAY ==
[2024-04-17 12:53] VITALS: BP 128/72; PULSE 81; O2SAT 97
== END 2024-05-18 06:49 | disposition home or self-care (01) ==
LOC: HO.PTCHIC 12:50
PROVIDERS: PCP Family Medicine; Visit Provider Family Medicine
DX: H81.10 Benign paroxysmal vertigo, unspecified ear (principal)
CPT/HCPCS: 97112; 97162

== ENCOUNTER 2024-04-28 12:09 | Outpatient (AMB) | payer OTHER, SELFPAY ==
[2024-04-28 12:39] VITALS: BP 122/84; PULSE 77; TEMP 36.7; O2SAT 94
--- NOTE | 2024-04-28 12:39 | MHC.OFFWIV ---
Intake Vital Signs 04/28/24 12:39 Weight 170 lb BP 122/84 Blood Pressure Location Rt brachial Position Sitting Pulse 77 Pulse Source Pulse Oximeter Temp 98.1 F Temp Source Oral Pulse Oximetry (%) 94 Oxygen Delivery Method Room Air Intake Visit Reasons: EP-cough, sore throat Intake Note: Patient here for cough, sore throat that started . Patient Tobacco Use Status: Former Tobacco user Allergies ketamine Allergy (Severe, Verified 04/28/24 12:41) Hallucinations amoxicillin [AMOXICILLIN] Allergy (Intermediate, Verified 04/28/24 12:41) hives/rash Penicillins [PENICILLINS] Allergy (Intermediate, Verified 04/28/24 12:41) hives/rash Do you need a note to return to daycare/school/sports/work: No HPI HPI Comments History of Present Illness Details 58 yr old female presents to the office for a sick visit. Reports sx of wheezing, post nasal drip and sore throat for the past few days. Tested negative for Covid. PFSH Medical History COPD (chronic obstructive pulmonary disease) Osteoporosis Fracture of greater tuberosity of right humerus Breast cancer GERD (gastroesophageal reflux disease) Depression Fracture of 5th metatarsal Hypothyroid History of breast cancer Surgical History Hx of hand surgery Hx of tonsillectomy Hx of appendectomy Hx of breast reconstruction Hx of bilateral mastectomy Hx of cataract extraction History of esophagogastroduodenoscopy (EGD) H/O colonoscopy History of arthroplasty of left knee Family History Other No family history of cancer Social History Household Members: Significant Other Housing: Apartment Are you a primary respiratory care faculty to a significant other at home: No Do you presently have visiting nurse or other home services: No Alcohol intake: never Patient Tobacco Use Status: Former Tobacco user Tobacco use type: Cigarette service: No Current occupational status: employed 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 Physical Exam Vital Signs: Last Vital Signs Temp 98.1 F 04/28/24 12:39 Pulse 77 04/28/24 12:39 BP 122/84 04/28/24 12:39 Pulse Ox 94 04/28/24 12:39 Oxygen Delivery Method Room Air 04/28/24 12:39 Const General: cooperative and healthy appearing Nutritional Appearance: well nourished Orientation/consciousness: patient oriented x3 Limitations: no limitations HEENT Head: Yes normal to inspection Eyes General: appearance normal, both eyes and all related structures Neck Neck: Yes normal visual inspection Chest Chest palpation & inspection: normal palpation of entire chest wall Resp Effort & Inspection: normal respiratory effort Neuro General: patient oriented x3 Assessment & Plan Assessment & Plan (1) URI (upper respiratory infection): Code(s): J06.9 - Acute upper respiratory infection, unspecified Qualifiers: URI type: unspecified viral URI Qualified Code(s): J06.9 - Acute upper respiratory infection, unspecified Plan: Antibiotic called in. Rest and tylenol every six hours. Coding Level of Care Code Est Pt Level 3 (78661) Diagnoses Viral upper respiratory tract infection J06.9 URI type: unspecified viral URI
== END 2024-04-28 14:36 | disposition home or self-care (01) ==
PROVIDERS: PCP Family Medicine; Visit Provider Internal Medicine
DX: Z13.9 Encounter for screening, unspecified (principal); J06.9 Acute upper respiratory infection, unspecified

== ENCOUNTER → 2024-04-28 12:09 | Outpatient (BNVA) | payer OTHER, SELFPAY | PROVIDERS: PCP Family Medicine; Visit Provider Internal Medicine | DX: J06.9 Acute upper respiratory infection, unspecified (principal) | CPT/HCPCS: 87880 ==

== ENCOUNTER 2024-07-03 08:04 | Outpatient (REF) | payer OTHER, SELFPAY ==
--- OUTSIDE RECORDS SUMMARY | 2024-07-03 08:12 | XMS_ITS | Patient Health Record ---
Demographics Address [address] [place] [address] Email Address Preferred Language en Marital Status unmarried Confucianist Affiliation Unknown Race White Ethnic Group Not or Lati no Author Organization [facility] [place] Address [address] [place] [address] Support Name Relationship Address Phone Maria E Oglesby Emergency Contact [address] [place] [address] Vanesa Oglesby Guarantor Unknown [phone] Care Team Providers Care Cook House Supervisor Name Role Phone Donell James MD Primary Care Provider Cecy Bueno Unavailable [phone] Allergies Allergen (clinical drug ingredient) Drug/Non Drug Allergy documented on EMR Reaction Allergy Type Onset Date Status Penicillin Unknown Drug Allergy Active Adhesive Tape Unknown Drug Allergy Act valerie Reason For Referral No Information Medications Medication SIG (Take, Route, Frequency, Duration) Notes Start Date End Date Status Citalopram Hydrobromide Active ASO Ankle/Foot Stablizing AFO As directed Wear Daily for as needed 08/11/2020 Active Loratadine Active Triamterene Not-Taki ng Turmeric Active HYDROcodone-Acetaminophen Not-Taking Probiotic Active Diclofenac Sodium 50 MG 1 tablet Orally Twice a day for 30 day(s) 08/11/2020 Active Magnesium Active Pepcid 20 MG 1 tablet at bedtime as needed Orally Once a day for 30 day(s) Active Vitamin D3 Active Levothyroxine Sodium 75 MCG 1 tablet on an empty stomach in the morning Orally Once a day Active Night Splint AFO - L1930 as directed 05/14/2016 Active Night Splint AFO - L1930 as directed 08/06/2016 Active Black Cohosh Active Vitamin B 12 Active Immunizations Vaccine Route Administration Date Status Comme nts COVID-19 Pfizer BioNTech Vaccine Unknown 05/13/2020 Administered 1st doese Social History Tobacco Use: Social History Observation Description Date Details (start date - stop date) Former Smoker NA - NA Tobacco Use/Smoking Question Answer Notes Are you a: former smoker Additional Findings: Tobacco Non-User Current no n-smoker Alcohol Screen Question Answer Notes Did you have a drink containing alcohol in the p ast year? No Points 0 Interpretation Negative Tobacco use other than smoking: Question Answer Notes Are you an other tobacco user? No Problems Problem Type SNOMED Code ICD Code Onset Dates Problem Status W/U Status Risk Notes Problem 183506211 Pronation deformity of left foot (M21.6X2) Active confirmed Problem 480755303 Pronation deformity of right foot (M21.6X1) Active confirmed Plan Of Treatment Pending Test Test Name Order Date , Q3883-GVRDY/INJECT, JOINT/BURSA 0 09/09/2020 Insurance Providers Payer Name Payer Address Payer Phone Subscriber Number Group Number Insured Name Patient Relationship to Insured Coverage Start Date Coverage End Date [employer] Benefits [address] [address] [place] [address] [id number] Vanesa Oglesby Self - patient is the insured Medical (General) History Medical History History ICD Code Anxiety Arthritis Depression Back,Hip,and Knee pain Numbness chronic sinusitis Reflux Thyroid disorder Chicken pox Cancer Cataracts Surgical History Surgery Date(Month/Year) arthroscopic knee surgery 05/1991 appendectomy 05/1971 tonsillectomy 05/1969 mastectomy partial left knee replacement cataract surgery left 06/01/19 Cataract surgery right 05/18/19
--- OUTSIDE RECORDS SUMMARY | 2024-07-03 08:12 | XMS_ITS ---
Demographics Address [address] [place] [address] Mobile Email Address Preferred Language en Marital Status Domestic Partner Mormonism Affiliation Unknown Race White Ethnic Group Not or Lati no Author Organization [facility] Address [address] [place] [address] Care Team Providers Care Cnp Name Role Phone Donell James MD Primary Care Provider Kali Elias Unavailable [phone] Queta Motta Unavailable Unavailable ALLERGIES Allergen (clinical drug ingredient) Drug/Non Drug Allergy documented on EMR Reaction Allergy Type Onset Date Status Penicillin Unknown Drug Allergy Active amoxicillin Amoxicillin Unknown Drug Allergy Act valerie RESULTS Component Value Reference Range Notes Amylase Reviewed date:09/26/2023 11:41:38 PM Interpretation: Performing Lab:[address] [address] Notes/Report: Amylase 44 28-100 U/L Lipase Reviewed date:09/26/2023 11:41:29 PM Interpretation: Performing Lab:[address] [address] Notes/Report: Lipase 22 8-78 U/L REASON FOR VISIT Patient presents today abdominal pain MEDICATIONS Medication SIG (Take, Route, Frequency, Duration) Notes Start Date End Date Status Omeprazole 20 MG TAKE 1 CAPSULE BY MOUTH EVERY DAY for 30 Not-Tahmina christian Probiotic - Orally Active Ondansetron 4 MG 1 tablet on the tong ue and allow to dissolve Orally Every 4 to 6 hours as needed for nausea for 30 day(s) 09/25/2023 Active Famotidine 40 MG 1 Orally Twice a day for 30 day(s) 09/25/2023 Active Dulcolax 5 MG 4 Orally as directed for 1 days 07/25/2016 Not-Taking Levothyroxine Sodium 75 MCG 1 tablet on an empty stomach in the morning Orally Once a day Active Turmeric 500 MG as directed Orally Active Magnesium 300 MG 1 capsule with a tejas l Orally Once a day for 30 day(s) Active Citalopram Hydrobromide 20 MG 1 tablet Orally Once a day Active Loratadine 10 MG 1 tablet Orally Once a day Active Multi Vitamin - 1 tablet Orally Once a day for 30 day(s) Active Vitamin D-3 25 MCG (1000 UT) 1 capsule Orally Once a day for 30 day(s) Active Meloxicam 7.5 MG 1 tablet Orally Once a day for 30 day(s) Active PROBLEMS Problem Type ICD Code Onset Dates Problem Status W/U Status Risk SNOMED Code Notes Problem Epigastric pain (R10.13) Active confirmed Epigastric pain (95235533) Problem Nausea (R11.0) Active confirmed Nausea (679102034) VITAL SIGNS Temperature 98.0 degrees Fahrenheit 09/25/19 24 Blood pressure systolic 000 mm Hg 09/25/19 24 Blood pressure diastolic 00 mm Hg 024 Height 67 in 09/25/2023 Weight 182 lb 8 oz lbs 09/25/2023 BMI 28.58 kg/m2 09/25/2023 Encounters Encounter Location Date Provider Diagnosis [facility] [address] [place] [phone] 09/25/2023 Kali Neri Epigastric pain R10.13 ; Nausea R11.0 and Abdominal bloating R14.0 ASSESSMENTS Encounter Date Diagnosis Assessment Notes Treatment Notes Treatment Clinical Notes 09/25/2023 Epigastric pain (ICD-10 - R10.13) Try to avoid Meloxicam, Iburofen ,etc. Tylenol is safe 09/25/2023 Nausea (ICD-10 - R11.0) 09/25/2023 Abdominal bloating (ICD-10 - R14.0) PLAN OF TREATMENT Medication Medication Name Sig Start Date Stop Date Notes Ondansetron 4 MG 1 tablet on the tong ue and allow to dissolve Orally Every 4 to 6 hours as needed for nausea for 30 day(s) 09/25/2023 Famotidine 40 MG 1 Orally Twice a day for 30 day(s) 2023 Treatment Notes Assessment Notes Epigastric pain Try to avoid Meloxic am, Iburofen ,etc. Tylenol is safe Pending Test Test Name Order Date CHEM 7 PROFILE 09/25/2023 LIVER PROFILE 09/25/2023 CBC w DIFF 09/25/2023 US abdomen complete 09/25/2023 Future Test Test Name Order Date UPPER GI ENDOSCOPY 09/25/2023 Next Appt Details Follow Up: prn, Reason: Progress Notes * Examination Category Sub-Category Detail Notes General Examination GENERAL APPEARANCE: pleasant , well nourished, well developed, in no acute distress HEAD: EYES: sclera non-icteric EARS: NOSE: THROAT: NECK/THYROID: no cervical lymphade nopathy, neck supple HEART: S1, S2 normal CHEST: LUNGS: clear to auscultatio n bilaterally ABDOMEN: normal bowel sounds, no guarding or rigidity, no guarding or rigidity, no masses palpable, soft, nontender, nondistended NEUROLOGIC: alert and oriented SKIN: nonjaundiced, no spi darvin angiomata EXTREMITIES: no edema PERIPHERAL PULSES: BACK: BREASTS: MUSCULOSKELETAL: MALE GENITOURINARY: LYMPH NODES: RECTAL EXAM: FEMALE GENITOURINARY: ORAL CAVITY: mucosa moist
--- OUTSIDE RECORDS SUMMARY | 2024-07-03 08:12 | XMS_ITS ---
Demographics Address [address] [place] [address] Mobile Email Address Preferred Language en Marital Status Domestic Partner Buddhist Affiliation Unknown Race White Ethnic Group Not or Lati no Author Organization [facility] Address [address] [place] [address] Care Team Providers Care Coater Carbon Paper Name Role Phone Donell James MD Primary Care Provider Kali Elias Unavailable [phone] Queta Motta Unavailable Unavailable Encounters Encounter Location Date Provider Diagnosis [facility] [address] [place] [phone] 11/08/2023 Kali Neri Hiatal hernia K44. 9 and Abdominal pain R10.9 ASSESSMENTS Encounter Date Diagnosis Assessment Notes Treatment Notes Treatment Clinical Notes 11/08/2023 Hiatal hernia (ICD-10 - K44.9) 11/08/2023 Abdominal pain (ICD-10 - R10.9) PLAN OF TREATMENT No Information
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
--- OUTSIDE RECORDS SUMMARY | 2024-07-03 08:12 | XMS_ITS ---
Demographics Address [address] [place] [address] Mobile Email Address Preferred Language en Marital Status Domestic Partner Christian Affiliation Unknown Race White Ethnic Group Not or Lati no Author Organization [facility] Address [address] [place] [address] Care Team Providers Care Field Advisor Name Role Phone Donell James MD Primary Care Provider Kali Elias Unavailable [phone] Queta Motta Unavailable Unavailable REASON FOR VISIT egd Encounters Encounter Location Date Provider Diagnosis [facility] [address] [place] [address] 10/07/2023 Kali Neri PLAN OF TREATMENT No Information
[2024-07-03 11:05] LABS: Alanine Aminotransferase 20 U/L (0-31); Albumin Level 4.3 g/dL (3.5-5.0); Alkaline Phosphatase 76 U/L (39-117); Anion Gap 11 (12-20); Aspartate Amino Transferase 24 U/L (5-31); Bilirubin Total 0.4 mg/dL (0.0-1.0); Blood Urea Nitrogen 11 mg/dL (9-16); Calcium 9.6 mg/dL (8.4-10.2); Carbon Dioxide 27 mmol/L (22-29); Chloride 106 mmol/L (96-108); Cholesterol 220 mg/dL (<200); Estimated Glomerular Filt Rate > 60; Glucose Random 86 mg/dL (60-115); HDL Cholesterol 90 mg/dL (>40); LDL Cholesterol Calculated 109 mg/dL (<100); Potassium 4.1 mmol/L (3.3-5.1); Sodium 140 mmol/L (135-145); Total Protein 7.5 g/dL (6.5-8.0); Triglycerides 106 mg/dL (<150)
[2024-07-03 11:22] LABS: TSH reflex Free T4 1.62 uIU/mL (0.32-4.0)
== END 2024-07-03 08:05 | disposition home or self-care (01) ==
LOC: HO.HMGCLDS 08:04
PROVIDERS: PCP Family Medicine; Visit Provider Family Medicine
DX: Z00.00 Encounter for general adult medical examination without abnormal findings (principal); E03.9 Hypothyroidism, unspecified; F41.1 Generalized anxiety disorder
CPT/HCPCS: 36415; 80053; 80061; 84443

== ENCOUNTER 2024-07-23 12:05 | Outpatient (AMB) | payer OTHER, SELFPAY ==
[2024-07-23 12:07] VITALS: BP 124/78; PULSE 76; RESP 18; TEMP 36.6; O2SAT 96; BMI 27.4
--- NOTE | 2024-07-23 12:07 | AM.OFFWIN_ITS ---
Intake Vital Signs 07/23/24 12:07 Height 5 ft 6 in Weight 170 lb BMI 27.4 BP 124/78 Blood Pressure Location Lt brachial Position Sitting Respiration 18 Pulse 76 Pulse Source Pulse Oximeter Temp 97.9 F Temp Source Oral Pulse Oximetry (%) 96 Oxygen Delivery Method Room Air Intake Visit Reasons: EP-sore throat, body ache Intake Note: Pt is here today for a walk in visit. Pt c/o sore throat, body aches, chills. Patient Tobacco Use Status: Former Tobacco user Allergies ketamine Allergy (Severe, Verified 07/23/24 12:09) Hallucinations amoxicillin [AMOXICILLIN] Allergy (Intermediate, Verified 07/23/24 12:09) hives/rash Penicillins [PENICILLINS] Allergy (Intermediate, Verified 07/23/24 12:09) hives/rash HPI HPI Comments History of Present Illness Details History of Present Illness - The patient is a 58-year-old female pr esenting with sore throat and associated symptoms. - Onset of symptoms was yesterday with i nitial presentation of chills and body aches. - Last night, a sore throat developed al ongside a dry cough and a burning throat sensation. - As of this morning, the sore throat co ntinues without accompanying fever. - The patient reports mild swelling on t he left side of the neck. - There is no previous experience of Str ep throat, and she is allergic to Penicillins. Physical Exam General: Cooperative, healthy appearing, comfortable, no acute distress and well developed Orientation: Patient oriented x3 Limitations: No limitations Head: Normal to inspection Ears: Hearing grossly normal bilaterally Nose: Normal External nose present Face and sinus: Normal facial exam Eyes: Appearance normal, both eyes and all related structures Mouth: moist mucus membranes, slight posterior oropharynx erythema Neck: TTP left sided lymph nodes Respiratory: Normal respiratory effort and able to speak in complete sentences. Skin: No rashes or lesions noted Neuro: Patient oriented x3 Extremities: Normal to inspection [facility] Medical History COPD (chronic obstructive pulmonary disease) Osteoporosis Fracture of greater tuberosity of right humerus Breast cancer GERD (gastroesophageal reflux disease) Depression Fracture of 5th metatarsal Hypothyroid History of breast cancer Surgical History Hx of hand surgery Hx of tonsillectomy Hx of appendectomy Hx of breast reconstruction Hx of bilateral mastectomy Hx of cataract extraction History of esophagogastroduodenoscopy (EGD) H/O colonoscopy History of arthroplasty of left knee Family History Other No family history of cancer Social History Household Members: Significant Other Housing: Apartment Are you a primary care asst to a significant other at home: No Do you presently have visiting nurse or other home services: No Alcohol intake: never Patient Tobacco Use Status: Former Tobacco user Tobacco use type: Cigarette service: No Current occupational status: employed 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 Review of Systems Const All systems reviewed & are unremarkable except as noted in HPI and below Physical Exam Vital Signs: Last Vital Signs Temp 97.9 F 07/23/24 12:07 Pulse 76 07/23/24 12:07 Resp 18 07/23/24 12:07 BP 124/78 07/23/24 12:07 Pulse Ox 96 07/23/24 12:07 Oxygen Delivery Method Room Air 07/23/24 12:07 BMI result Body Mass Index 27.4 Results AMB Rapid Strep AMB Rapid Strep Positive Last Edit by WELLINGTON Bradley on 07/23/24 12: 11 Results Reviewed Results Reviewed: Laboratory Last Values Strep Scn Rapid Clinic Positive 07/23/24 12:10 Assessment & Plan Assessment & Plan (1) Strep pharyngitis: Code(s): J02.0 - Streptococcal pharyngitis Plan: Rapid strep positive in office. Cephalexin, 500 mg, has been prescribed twice daily for 10 days to manage the suspected case of pharyngitis in light of the patient's documented allergies to Amoxicillin/Penicillin. The antibiotic offers a favorable safety profile. The patient was advised to continue observing symptoms over the next 48 hours after initiating treatment and to seek additional medical attention should she experience symptom exacerbation or new developments. Symptomatic relief and completed resolution are anticipated pending adherence to the provided regimen. Concurrently, testing for individuals with similar exposure was recommended to prevent propagation within close contacts. Prescription logistics were coordinated to ensure prompt access to medication. Patient was informed and verbally consented to the use of an ambient scribe for clinic note documentation during this visit. Orders: Orders AMB Rapid Strep Screen Today Z13.9 - Encounter for screening, unspecified Medications: New cephalexin 500 mg PO Q12H 20 caps 0RF 10 days Coding Level of Care Code Est Pt Level 3 (20782) Diagnoses Strep pharyngitis J02.0
== END 2024-07-23 13:41 | disposition home or self-care (01) ==
PROVIDERS: PCP Family Medicine; Visit Provider Physician Assistant
DX: J02.0 Streptococcal pharyngitis (principal)

== ENCOUNTER → 2024-07-23 12:05 | Outpatient (BNVA) | payer OTHER, SELFPAY | PROVIDERS: PCP Family Medicine; Visit Provider Physician Assistant | DX: J02.0 Streptococcal pharyngitis (principal) | CPT/HCPCS: 87880 ==

== ENCOUNTER 2024-08-21 12:47 | Outpatient (REF) | payer OTHER, SELFPAY ==
--- NOTE | ~2024-08-21 | MR_ITS ---
EXAMINATION: MR BRAIN/ IAC PROTOCOL WITHOUT AND WITH CONTRAST CLINICAL INFORMATION: Left-sided hearing loss. Vertigo. COMPARISON: None available. TECHNIQUE: Multiplanar, multisequence MRI of the brain/ IAC protocol was obtained before and after the intravenous administration of 7.5 mL gadolinium based (Gadavist) without reported immediate complications.. FINDINGS: Cochlear and vestibular components of the 8th cranial nerves demonstrated no signal abnormality or enhancing mass. No enhancing lesion in the cerebellopontine angle cisterns or within the brainstem. The anterior inferior cerebellar arteries are type I , bilaterally. 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 No restricted diffusion. No enhancing mass/lesion in the intra-axial or the extra-axial compartment of the cranium. No acute intracranial hemorrhage, mass effect, midline shift, hydrocephalus or herniation. Flow-void signal within the main cerebral vessels is normal. Nonspecific hyperintense T2 FLAIR signal within the subcortical deep white matter of the frontal lobes Sellar/suprasellar region demonstrated no signal abnormality or enhancing mass. Craniocervical junction is intact and normal. Midline structures are normal. MR/MR head/brain wo/w con IMPRESSION: No vestibular schwannoma. No enhancing mass. No acute brain abnormality. Nonspecific white matter T2 FLAIR signal. Electronically signed by: Aris Mehta MD 08/21/2024 01:51 PM EDT
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
--- OUTSIDE RECORDS SUMMARY | 2024-08-21 13:22 | XMS_ITS ---
Author Organization [facility] Address [address] [place] [phone] Care Team Providers Care Stamping Die Maker Name Role Phone Donell James MD Primary Care Provider Kali Elias [phone] Queta Motta Unavailable Unavailable REASON FOR VISIT egd Encounters Encounter Location Date Provider Diagnosis [facility] [address] [place] [phone] 10/07/2023 Kali Neri Plan Of Treatment No Information Progress Notes * ILIANADMITRIY CEEIE ADOB: [birth year] (57 yo F)Acc No.[id number]:10/07/2023 Patient:?MARY SPAULDING :1965???Age:57 Y???Sex:Female Address:[address] [place] [address], [address] * true * Date:? Generated for Deshawn reese/Rosas/eTransmitting on:?08/21/2024 01:21 PM EDT
--- OUTSIDE RECORDS SUMMARY | 2024-08-21 13:22 | XMS_ITS ---
Demographics Address [address] [place] [address] Mobile Email Address Preferred Language en Marital Status Domestic Partner Judaism Affiliation Unknown Race White Ethnic Group Not or Lati no Author Organization [facility] Address [address] [place] [address] Care Team Providers Care Small Parts Assembler Name Role Phone Donell James MD Primary Care Provider Kali Elias Unavailable [phone] Queta Motta Unavailable Unavailable Allergies Allergen (clinical drug ingredient) Drug/Non Drug Allergy documented on EMR Reaction Allergy Type Onset Date Status Penicillin Unknown Drug Allergy Active amoxicillin Amoxicillin Unknown Drug Allergy Act valerie Results Component Value Reference Range Notes Amylase Reviewed date:09/26/2023 11:41:38 PM Interpretation: Performing Lab:[address] [address] Notes/Report: Amylase 44 28-100 U/L Lipase Reviewed date:09/26/2023 11:41:29 PM Interpretation: Performing Lab:[address] [address] Notes/Report: Lipase 22 8-78 U/L REASON FOR VISIT Patient presents today abdominal pain Medications Medication SIG (Take, Route, Frequency, Duration) [...] Once a day for 30 day(s) Active Problems Problem Type SNOMED Code ICD Code Onset Dates Problem Status W/U Status Risk Notes Problem Epigastric pain (69198738) Epigastric pain (R10.13) Active confirmed Problem Nausea (567085936) Nausea (R11.0) Active confirmed Vital Signs Temperature 98.0 degrees Fahrenheit 09/25/19 24 Blood pressure systolic 000 mm Hg 09/25/19 24 Blood pressure diastolic 00 mm Hg 024 Height 67 in 09/25/2023 Weight 182 lb 8 oz lbs 09/25/2023 BMI 28.58 kg/m2 09/25/2023 Encounters Encounter Location Date Provider Diagnosis [facility] [address] [address] [place] [id number] 09/25/2023 Kali Neri Epigastric pain R10.13 ; Nausea R11.0 and Abdominal bloating R14.0 Assessments Encounter Date Diagnosis (ICD Code) Assessment Notes Treatment Notes Treatment Clinical Notes Section Notes 09/25/2023 Epigastric pain (ICD-10 - R10.13) [...] advised of her progress. Plan Of Treatment Medication Medication Name Sig Start Date Stop [...] Follow Up: prn, Reason: Progress Notes * VANESA SPAULDING ADOB: [birth year] (57 yo F)Acc No.[id number]:09/25/2023 Progress Notes Patient:?VANESA SPAULDING Provider:?Kali Neri MD :1965???Age:57 Y???Sex:Female D ate:09/25/2023 Address:[address] [place] [address] Pcp:Donell James MD Subjective: * Chief Complaints: * ???Patient presents today ab dominal pain * HPI: ???incontinence:? I saw Vanesa in the office today in regard to further evaluation of her upper abdominal discomfort, nausea, abdominal bloating, and irregular bowel movements. ?I last saw Vanesa in November of 2020, at which time she underwent a colonoscopy with removal of a small tubular adenoma. She has had a history of some irritable bowel syndrome-type symptoms with irregular bowel movements, generalized abdominal discomfort, and abdominal bloating. She has used fiber supplements in the past with some improvement in her symptoms. She had a nonrevealing upper endoscopy in 2018. She had been on omeprazole for a long time in relation to reflux symptoms with improvement as well. ?She describes that she stopped her omeprazole quite some time ago due to concerns regarding potential side effects in relation to bone disease. She had not noticed any worsening upper GI complaints off of the omeprazole up until about one week ago. She does use meloxicam and/or ibuprofen several times per week for arthritis. Last week she describes being awakened with some epigastric discomfort with associated nausea. Since that time she has been experiencing upper abdominal fullness, discomfort, early satiety, and ongoing nausea. She has not had any vomiting, jaundice, nor fevers. Her bowel movements remain somewhat irregular but she has not noticed any melena nor hematochezia. She denies any dysphagia, odynophagia, nor any significant anorexia. She has not noticed any significant weight loss. ?Laboratories in August revealed a normal CBC, chemistries, and LFTs. * ROS:?General/Constitutional:?Change in appetite?denies.?Chills?denies.?Fatigue?denies.?Ophthalmologic:?Comments?all negative.?ENT:?Comments?all negative.?Respiratory:?hemoptysis?denies.?Cough?denies.?Cardiovascular:?Chest pain?denies.?Orthopnea?denies.?Gastrointestinal:?Comments?See HPI for details.?Genitourinary:?Hematuria?denies.?Dysuria?denies.?Musculoskeletal:?Painful joints?denies.?Weakness?denies.?Skin:?Itching?denies.?Rash?denies.?Neurologic:?Headache?denies.?Seizures?denies.?Psychiatric:?Comments?all negative.? * Medical History:? * Surgical History:?Appendecto my Tonsillectomy Bilateral mastectomy with lymph node dissection on the right 2014---then reconstruction in 2015 Bilateral knees LEFT PARTIAL KNEE REPLACEMENT--Dr. Root 02/2017Fractured left wrist * Hospitalization/Major Diagno stic Procedure:?No Hospitalization History. * Family History:?Father: dece ased, diagnosed with HTN (hypertension).?Mother: , c-diff, diagnosed with HTN (hypertension).?Paternal Grand Mother: Uterine cancer.? No known hx of colorectal cancer or polyps. No family history of liver cancer. * Social History:?Tobacco Use:?Tobacco Use/Smoking?Patient is a: former smoker , How long has it been since you last smoked?: 5-10 years.?Drugs/Alcohol:?Alcohol Screen?Points: 0, Interpretation: Negative.?Miscellaneous:?Marital status: single. 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 ???Nonsmoker; recovering alcoholic since 2001. * Medications:?TakingMeloxicam 7.5 MG Tablet 1 tablet Orally Once a dayVitamin D-3 25 MCG (1000 UT) Capsule 1 capsule Orally Once a dayMulti Vitamin - Tablet 1 tablet Orally Once a dayMagnesium 300 MG Capsule 1 capsule with a meal Orally Once a dayTurmeric 500 MG Capsule as directed Orally Levothyroxine Sodium 75 MCG Tablet 1 tablet on an empty stomach in the morning Orally Once a dayLoratadine 10 MG Tablet 1 tablet Orally Once a dayCitalopram Hydrobromide 20 MG Tablet 1 tablet Orally Once a dayProbiotic - Capsule Orally Taking Meloxicam 7.5 MG Tablet 1 tablet Orally Once a dayTaking Vitamin D-3 25 MCG (1000 UT) Capsule 1 capsule Orally Once a dayTaking Multi Vitamin - Tablet 1 tablet Orally Once a dayTaking Magnesium 300 MG Capsule 1 capsule with a meal Orally Once a dayTaking Turmeric 500 MG Capsule as directed Orally Taking Levothyroxine Sodium 75 MCG Tablet 1 tablet on an empty stomach in the morning Orally Once a dayTaking Loratadine 10 MG Tablet 1 tablet Orally Once a dayTaking Citalopram Hydrobromide 20 MG Tablet 1 tablet Orally Once a dayTaking Probiotic - Capsule Orally Not-Taking/PRNOmeprazole 20 MG Capsule Delayed Release TAKE 1 CAPSULE BY MOUTH EVERY DAY Dulcolax 5 MG Tablet Delayed Release 4 Orally as directedMedication List reviewed and reconciled with the patientNot-Taking/PRN Omeprazole 20 MG Capsule Delayed Release TAKE 1 CAPSULE BY MOUTH EVERY DAY Not-Taking/PRN Dulcolax 5 MG Tablet Delayed Release 4 Orally as directedMedication List reviewed and reconciled with the patient * Allergies:?PenicillinAmcosmei kerwin[Allergies Verified] Objective: * Vitals:?Wt: 182 lb 8 oz, Ht: 67 in, BMI:28.58 Index, BP: 000/00 mm Hg, Temp: 98.0. * Examination: ???General Examination: ?GENERAL APPEARANCE:?pleasant, well nourished, well developed, in no acute distress.?EYES:?sclera non-icteric.?ORAL CAVITY:?mucosa moist.?NECK/THYROID:?no cervical lymphadenopathy, neck supple.?SKIN:?nonjaundiced, no spider angiomata.?HEART:?S1, S2 normal.?LUNGS:?clear to auscultation bilaterally.?ABDOMEN:?normal bowel sounds, no guarding or rigidity, no guarding or rigidity, no masses palpable, soft, nontender, nondistended.?EXTREMITIES:?no edema.?NEUROLOGIC:?alert and oriented.? Assessment: * Assessment: 1.?Epigastric pain - R10.13 (Primary)?2.?Nausea - R11.0?3.?Abdominal bloating - R14.0? Overall, Vanesa appears well from a clinical [...] to keep you advised of her progress. Plan: * Treatment: ? Value Reference Range ?Amylase 44 28-100 - U/L ?LAB: Lipase* ? Value Reference Range ?Lipase 22 8-78 - U/L ?Imaging: US abdomen complete* YULIYA please * ?Procedure: UPPER GI ENDOSCOPY (Ordered for 09/25/2023)* with MAC Notes: Try to avoid Meloxicam, Iburofen ,etc. Tylenol is safe??2.?Nausea? Start Ondansetron Tablet Disintegrating, 4 MG, 1 tablet on the tongue and allow to dissolve, Orally, Every 4 to 6 hours as needed for nausea, 30 day(s), 20, Refills 1.?LAB: CHEM 7 PROFILE ?LAB: LIVER PROFILE ?LAB: CBC w DIFF ?LAB: Amylase* ? Value Reference Range ?Amylase 44 28-100 - U/L ?LAB: Lipase* ? Value Reference Range ?Lipase 22 8-78 - U/L ?Imaging: US abdomen complete* YULIYA please * ?Procedure: UPPER GI ENDOSCOPY (Ordered for 09/25/2023)* with MAC 3.?Abdominal bloating?LAB: CHEM 7 PROFILE ?LAB: LIVER PROFILE ?LAB: CBC w DIFF ?LAB: Amylase* ? Value Reference Range ?Amylase 44 28-100 - U/L ?LAB: Lipase* ? Value Reference Range ?Lipase 22 8-78 - U/L ?Imaging: US abdomen complete* YULIYA please * ?Procedure: UPPER GI ENDOSCOPY (Ordered for 09/25/2023)* with MAC * Procedure Codes:?3017F COLOR ECTAL CA SCREEN DOC [id number] TOBACCO NON-BHGSS9002 BP SCR NOT PRFRM REC REASON NOS * Preventive Medicine:? ??Counseling:?Care goal follow-up plan:?Above Normal BMI Follow-up?Giving encouragement to exercise,?BMI management provided?Yes.? * Follow Up:?prn * * Sign off status: Completed true * Provider:?Kali Neri MD Date:? 024 Generated for Deshawn reese/Rosas/Boom on:?08/21/2024 01:21 PM EDT History and Physical Notes * HPI (History of Present Illness) Category Sub-Category Detail Notes Category Not es incontinence I saw Vanesa in the office today in regard to further evaluation of her upper abdominal discomfort, nausea, abdominal bloating, and irregular bowel movements. I last saw Vanesa in November of 2020, at which time she underwent a colonoscopy with removal of a small tubular adenoma. She has had a history of some irritable bowel syndrome-type symptoms with irregular bowel movements, generalized abdominal discomfort, and abdominal bloating. She has used fiber supplements in the past with some improvement in her symptoms. She had a nonrevealing upper endoscopy in 2017. She had been on omeprazole for a long time in relation to reflux symptoms with improvement as well. She describes that she stopped her omeprazole quite some time ago due to concerns regarding potential side effects in relation to bone disease. She had not noticed any worsening upper GI complaints off of the omeprazole up until about one week ago. She does use meloxicam and/or ibuprofen several times per week for arthritis. Last week she describes being awakened with some epigastric discomfort with associated nausea. Since that time she has been experiencing upper abdominal fullness, discomfort, early satiety, and ongoing nausea. She has not had any vomiting, jaundice, nor fevers. Her bowel movements remain somewhat irregular but she has not noticed any melena nor hematochezia. She denies any dysphagia, odynophagia, nor any significant anorexia. She has not noticed any significant weight loss. Laboratories in August revealed a normal CBC, chemistries, and LFTs. Examination Category Sub-Category Detail Notes Category Not es General Examination GENERAL APPEARANCE: pleasant , well [...]
--- OUTSIDE RECORDS SUMMARY | 2024-08-21 13:22 | XMS_ITS | Patient Health Record ---
Demographics Address [address] [place] [address] Email Address Preferred Language en Marital Status unmarried Moravian Affiliation Unknown Race White Ethnic Group Not or Lati no Author Organization [facility]olas [place] Address [address] [place] [address] Support Name Relationship Address Phone Maria E Oglesby Emergency Contact [address] [place] [address] Vanesa Oglesby Guarantor Unknown [phone] Care Team Providers Care Fisher Weir Name Role Phone Donell James MD Primary Care Provider Cecy Bueno Unavailable [phone] Allergies Allergen (clinical drug ingredient) Drug/Non Drug [...] Problem Status W/U Status Risk Notes Problem [id number] Pronation deformity of left foot (M21.6X2) Active confirmed Problem 508224966 Pronation deformity of right foot (M21.6X1) Active confirmed Plan Of Treatment Pending Test Test Name Order Date , G3926-RREJS/INJECT, JOINT/BURSA 0 09/09/2020 Insurance Providers Payer Name Payer Address Payer Phone Subscriber Number Group Number Insured Name Patient Relationship to Insured Coverage Start Date Coverage End Date Blue Benefits [address] [address] [place] [address] [id number] Vanesa Oglesby Self - patient is the [...]
--- OUTSIDE RECORDS SUMMARY | 2024-08-21 13:22 | XMS_ITS ---
Author Organization [facility] Address [address] [place] [address] Care Team Providers Care Filter Worker Name Role Phone Jacob DIAZ, Donell Primary Care Provider Kali Elias Unavailable [phone] Queta Motta Unavailable Unavailable Encounters Encounter Location Date Provider Diagnosis [facility] Out[facility] [address] [place] [phone] 11/08/2023 Kali Neri Hiatal hernia K44. 9 and Abdominal pain R10.9 Assessments Encounter Date Diagnosis (ICD Code) Assessment Notes Treatment Notes Treatment Clinical Notes Section Notes 11/08/2023 Hiatal hernia (ICD-10 - K44.9) 11/08/2023 Abdominal pain (ICD-10 - R10.9) Plan Of Treatment No Information Progress Notes * MARY SPAULDING ADOB: [birth year] (58 yo F)Acc No.[id number]:11/08/2023 EGD/MAC Patient:?MARY SPAULDING Provider:?Kali Neri MD :1965???Age:57 Y???Sex:Female D ate:11/08/2023 Address:[address] [place], [place] [id number] Pcp:Donell James MD Subjective: * Chief Complaints: * ??? * Medical History:? Objective: * Vitals:? Assessment: * Assessment: 1.?Hiatal hernia - K44.9 (Pr imary)???2.?Abdominal pain - R10.9??? Plan: * Treatment: * Procedure Codes:?31484 UPPER GI ENDOSCOPY, BIOPSY * * The named appointment provid er may or may not be the originator of this progress note, and it is not deemed complete until electronically signed by the appointment provider. Sign off status: Pending * Provider:?Kali Neri MD Date:? 024 Generated for Deshawn reese/Rosas/Kareenitting on:?08/21/2024 01:21 PM EDT
[2024-08-21] MEDS: gadobutroL 7.5 ML VIAL IVPUSH (13:36)
== END 2024-08-21 12:48 | disposition home or self-care (01) ==
LOC: HO.MRI 12:47
PROVIDERS: Visit Provider Otolaryngology
DX: H90.42 Sensorineural hearing loss, unilateral, left ear, with unrestricted hearing on the contralateral side (principal); D33.3 Benign neoplasm of cranial nerves
CPT/HCPCS: 70553; A9585

== ENCOUNTER → 2024-08-21 13:02 | Outpatient (BNV) | payer OTHER, SELFPAY | PROVIDERS: Visit Provider Radiology Diagnostic Radiology | DX: H90.12 Conductive hearing loss, unilateral, left ear, with unrestricted hearing on the contralateral side (principal); H81.312 Aural vertigo, left ear | CPT/HCPCS: 70553 ==

== ENCOUNTER 2024-11-09 09:12 | Outpatient (REF) | payer OTHER, SELFPAY ==
--- NOTE | ~2024-11-09 | XR_ITS ---
EXAMINATION: XR RIBS, LEFT CLINICAL INFORMATION: S20.219A - Contusion of unspecified front wall of thorax, initial encounter COMPARISON: Chest radiograph 02/10/2024. TECHNIQUE: 3 views of the left ribs were obtained. FINDINGS: Lungs are clear. Trace linear atelectasis in the left base noted. No consolidation, pneumothorax, or pleural effusion. The cardiomediastinal silhouette and pulmonary vasculature are normal. Osseous structures are unremarkable. Ribs are intact. No fractures are identified. There are surgical clips in the left breast and right axilla. Bilateral breast prostheses. XR/XR ribs LT min 3V w CXR1V IMPRESSION: 1. No active pulmonary disease. 2. No acute bony abnormalities of the ribs. Electronically signed by: Elbert Morales MD 11/09/2024 10:46 AM EDT
== END 2024-11-09 09:13 | disposition home or self-care (01) ==
LOC: HO.HMGCX 09:12
PROVIDERS: PCP Family Medicine; Visit Provider Nurse Practitioner Family
DX: S29.011A Strain of muscle and tendon of front wall of thorax, initial encounter (principal); S20.219A Contusion of unspecified front wall of thorax, initial encounter; Y93.42 Activity, yoga; X58.XXXA Exposure to other specified factors, initial encounter; Y92.9 Unspecified place or not applicable; Y99.8 Other external cause status
CPT/HCPCS: 71101

== ENCOUNTER 2024-11-09 09:12 | Outpatient (AMB) | payer OTHER, SELFPAY ==
--- OUTSIDE RECORDS SUMMARY | 2023-11-08 04:20 | XMS_ITS ---
Author Organization [facility] Address [address] [place] [address] Care Team Providers Care Ice Cream Freezer Helper Name Role Phone Donell James MD Primary Care Provider Kali Elias Unavailable [phone] Queta Motta Unavailable Unavailable Encounters Encounter Location Date Provider [place] [facility] [place] [address] [place] [phone] 11/08/2023 Kali Neri Hiatal hernia K44. 9 and Abdominal pain R10.9 Assessments Encounter Date Diagnosis (ICD Code) Assessment Notes Treatment Notes Treatment Clinical Notes Section Notes 11/08/2023 Hiatal hernia (ICD-10 - K44.9) 11/08/2023 Abdominal pain (ICD-10 - R10.9) Plan Of Treatment No Information Progress Notes * MARY SPAULDING ADOB: [birth year] (58 yo F)Acc No.[id number]:11/08/2023 EGD/MAC Patient: MARY MATTHEWS Provider: Mariely Neri MD :1965 A ge:57 Y S ex:Female Date:11/08/2023 Address:[address] [place] [address] Pcp:Donell James MD Subjective: * Chief Complaints: [...] Date: 11/08/2023 Generated for Deshawn reese/Rosas/Kareenitting on: 11/09/2024 09:39 AM EDT
--- OUTSIDE RECORDS SUMMARY | 2024-11-09 09:40 | XMS_ITS | Patient Health Record ---
Demographics Address [address] [place] [address] Email Address Preferred Language en Marital Status unmarried Sabianism Affiliation Unknown Race White Ethnic Group Not or Lati no Author Organization [facility] [place] Address [address] [place] [address] Support Name Relationship Address Phone Maria E Oglesby Emergency Contact [address] [place] [address] MariuszVanesa lezama Guarantor Unknown [phone] Care Team Providers Care Mine Inspector Name Role Phone Donell James MD Primary Care Provider Cecy Bueno Unavailable [phone] Allergies Allergen (clinical drug ingredient) Drug/Non Drug Allergy documented on EMR Reaction Allergy Type Onset Date Status Penicillin Unknown Drug Allergy Active Adhesive Tape Unknown Drug Allergy Act valerie Reason For Referral No Information Medications Medication SIG (Take, Route, Frequency, Duration) Notes Start Date End Date Status Citalopram Hydrobromide Active ASO Ankle/Foot Stablizing AFO As directed Wear Daily; Duration: as needed 08/11/2020 Active Loratadine Active Triamterene Not-Taki ng Turmeric Active HYDROcodone-Acetaminophen Not-Taking Probiotic Active Diclofenac Sodium 50 MG 1 tablet Orally Twice a day; Duration: 30 day(s) 08/11/2020 Active Magnesium Active Pepcid 20 MG 1 tablet at bedtime as needed Orally Once a day; Duration: 30 day(s) Active Vitamin D3 Active Levothyroxine [...] Problem Status W/U Status Risk Notes Problem Pronation deformity of left foot (M21.6X2) Active confirmed Problem Pronation deformity of right foot (M21.6X1) Active confirmed Plan Of Treatment Pending Test Test Name Order Date , P5490-FEGHR/INJECT, JOINT/BURSA 0 09/09/2020 Insurance Providers Payer Name Payer Address Payer Phone Subscriber Number Group Number Insured Name Patient Relationship to Insured Coverage Start Date Coverage End Date Blue Benefits [address] [address] [place] [address] [id number] Vanesa Oglesby Self - patient is the [...]
--- NOTE | 2024-11-09 09:41 | AM.OFFWIN_ITS ---
Intake Vital Signs 11/09/24 09:42 Height 5 ft 6 in Weight 170 lb BMI 27.4 BP 110/62 Blood Pressure Location Lt brachial Position Sitting Pulse 74 Pulse Source Pulse Oximeter Pulse Oximetry (%) 95 Oxygen Delivery Method Room Air Intake Visit Reasons: EP xray Patient Tobacco Use Status: Former Tobacco user Allergies ketamine Allergy (Severe, Verified 07/23/24 12:09) Hallucinations amoxicillin (AMOXICILLIN) Allergy (Intermediate, Verified 07/23/24 12:09) hives/rash Penicillins (PENICILLINS) Allergy (Intermediate, Verified 07/23/24 12:09) hives/rash HPI HPI Comments History of Present Illness Details 58 y/o Female patient who presents to [facility] walk [facility] clinic with c/o Left sided chest wall pain and tenderness for 3 days. Pt reports did Yoga and felt a Pop left lower chest wall - worried she might have broken a Rib. C/o Pain with Deep breathing and Certain body positions. H/o Breast CA with double mastectomies and Radiation to the chest wall. [facility] Medical History (Updated 11/09/24 @ 10:50 by Carlyn Donahue NP) Chest wall muscle strain Chest wall contusion COPD (chronic obstructive pulmonary disease) Osteoporosis Fracture of greater tuberosity of right humerus Breast cancer GERD (gastroesophageal reflux disease) Depression Fracture of 5th metatarsal Hypothyroid History of breast cancer Surgical History (Updated 04/16/24 @ 15:59 by Queta Motta MD) Hx of hand surgery Hx of tonsillectomy Hx of appendectomy Hx of breast reconstruction Hx of bilateral mastectomy Hx of cataract extraction History of esophagogastroduodenoscopy (EGD) H/O colonoscopy History of arthroplasty of left knee Family History Other No family history of cancer Social History Household Members: Significant Other Housing: Apartment Are you a primary manager care to a significant other at home: No Do you presently have visiting nurse or other home services: No Alcohol intake: never Patient Tobacco Use Status: Former Tobacco user Tobacco use type: Cigarette service: No Current occupational status: employed 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 Review of Systems Const All systems reviewed & are unremarkable except as noted in HPI and below Physical Exam Vital Signs: Last Vital Signs Pulse 74 11/09/24 09:42 BP 110/62 11/09/24 09:42 Pulse Ox 95 11/09/24 09:42 Oxygen Delivery Method Room Air 11/09/24 09:42 BMI result Body Mass Index 27.4 Assessment & Plan Assessment & Plan (1) Chest wall muscle strain: Code(s): S29.011A - Strain of muscle and tendon of front wall of thorax, initial encounter Qualifiers: Encounter type: initial encounter Qualified Code(s): S29.011A - Strain of muscle and tendon of front wall of thorax, initial encounter Plan: Ordered Chest Xray and Ribs to r/o Fx. Acetaminophen and NSAIDs for pain relief Ice/Hot Rest. Take Flexeril - she has some left at home. May Take Meloxicam. Orders: Orders XR ribs LT min 3V w CXR1V Today S20.219A - Contusion of unspecified front wall of thorax, initial encounter Coding Level of Care Code Est Pt Level 4 (07299) Diagnoses Muscle strain of chest wall, initial encounter S29.011A Encounter type: initial encounter Time Spent (min) 20
[2024-11-09 09:42] VITALS: BP 110/62; PULSE 74; O2SAT 95; BMI 27.4
== END 2024-11-09 10:36 | disposition home or self-care (01) ==
PROVIDERS: Visit Provider Nurse Practitioner Family
DX: S29.011A Strain of muscle and tendon of front wall of thorax, initial encounter (principal)

== ENCOUNTER → 2024-11-09 09:53 | Outpatient (BNV) | payer OTHER, SELFPAY | PROVIDERS: PCP Family Medicine; Visit Provider Radiology Diagnostic Radiology | DX: S20.219A Contusion of unspecified front wall of thorax, initial encounter (principal) | CPT/HCPCS: 71101 ==

== ENCOUNTER 2024-11-13 12:38 | Outpatient (REF) | payer OTHER, SELFPAY ==
--- OUTSIDE RECORDS SUMMARY | 2023-11-08 04:20 | XMS_ITS ---
Author Organization [facility] Address [address] [place] [address] Care Team Providers Care Yarn Sorter Name Role Phone Donell James MD Primary Care Provider Kali Elias Unavailable [phone] Queta Motta Unavailable Unavailable Encounters Encounter Location Date Provider Diagnosis [facility] [place] [address] [place] [address] [id number] 11/08/2023 Kali Neri Hiatal hernia K44. 9 and Abdominal pain R10.9 Assessments Encounter Date Diagnosis (ICD Code) Assessment Notes Treatment Notes Treatment Clinical Notes Section Notes 11/08/2023 Hiatal hernia (ICD-10 - K44.9) 11/08/2023 Abdominal pain (ICD-10 - R10.9) Plan Of Treatment No Information Progress Notes * MARY SPAULDING ADOB: [birth year] (58 yo F)Acc No.[id number]:11/08/2023 EGD/MAC Patient: MARY MATTHEWS Provider: Mariely Neri MD :1965 A ge:57 Y S ex:Female Date:11/08/2023 Address:[address] [place] [address] Pcp:Donell James MD Subjective: * Chief Complaints: [...] Date: 11/08/2023 Generated for Deshawn reese/Rosas/Kareenitting on: 11/13/2024 12:45 PM EDT
--- NOTE | ~2024-11-13 | MR_ITS ---
EXAMINATION: MULTIPARAMETRIC 1.5T BILATERAL BREAST MRI WITHOUT IV CONTRAST HISTORY: Female, 58 years of age presents for Implant evaluation. Pain and discomfort and burning sensation for one week. Unspecified which side is symptomatic. History of bilateral mastectomy in 2015 with saline implants.. TECHNIQUE: Multiplanar T1- and T2- weighted images were acquired on a 1.5 Bridgett magnet, Computer generated 3D reconstruction was utilized by the radiologist interpreting the exam. COMPARISON: Comparison is made with relevant prior exams. FINDINGS: There are bilateral normal appearing intact implants without evidence of rupture. Bilateral breast: Evaluation of the breast parenchyma cannot be performed on this noncontrast study. Overall no suspicious MRI findings. OTHER: No suspicious abnormality is present in the visualized chest and abdomen with limitations on this noncontrast study. MR/MR breast BI wo con IMPRESSION: No MRI evidence of intracapsular or extracapsular rupture bilaterally. Recommendation: Clinical evaluation and follow-up. Electronically signed by: Monica Carl DO 11/15/2024 09:08 PM EDT
--- OUTSIDE RECORDS SUMMARY | 2024-11-13 12:45 | XMS_ITS | Patient Health Record ---
Demographics Address [address] [place] [address] Email Address Preferred Language en Marital Status unmarried Protestant Affiliation Unknown Race White Ethnic Group Not or Lati no Author Organization [facility] nicholas [place] Address [address] [place] [address] Support Name Relationship Address Phone Maria E Oglesby Emergency Contact [address] [place] [address] Vanesa Oglesby Guarantor Unknown [phone] Care Team Providers Care Client Experience Specialist Name Role Phone Donell James MD Primary Care Provider Cecy Bueno Unavailable [phone] Allergies Allergen (clinical drug ingredient) Drug/Non Drug [...] Pending Test Test Name Order Date , C1752-LHCYA/INJECT, JOINT/BURSA 0 09/09/2020 Insurance Providers Payer Name Payer Address Payer Phone Subscriber Number Group Number Insured Name Patient Relationship to Insured Coverage Start Date Coverage End Date Blue Benefits [address] [address] [place] [address] [id number] Vanesa Oglesby Self - patient is the [...]
== END 2024-11-13 12:39 | disposition home or self-care (01) ==
LOC: HO.MRI 12:38
PROVIDERS: PCP Family Medicine; Visit Provider Pediatrics
DX: N64.4 Mastodynia (principal); Z85.3 Personal history of malignant neoplasm of breast
CPT/HCPCS: 77047

== ENCOUNTER → 2024-11-13 12:53 | Outpatient (BNV) | payer OTHER, SELFPAY | PROVIDERS: PCP Family Medicine; Visit Provider Internal Medicine | DX: N64.4 Mastodynia (principal) | CPT/HCPCS: 77047 ==

== ENCOUNTER 2024-11-19 11:48 | Outpatient (REF) | payer OTHER, SELFPAY ==
--- OUTSIDE RECORDS SUMMARY | 2023-11-08 04:20 | XMS_ITS ---
Author Organization [facility] Address [address] [place] [address] Care Team Providers Care Wood Scrap Handler Name Role Phone Donell James MD Primary Care Provider Kali Elias Unavailable [phone] Queta Motta Unavailable Unavailable Encounters Encounter Location Date Provider Diagnosis [facility] [place] [address] [place] [address] [id number] 11/08/2023 Kali Neri Hiatal hernia K44. 9 and Abdominal pain R10.9 Assessments Encounter Date Diagnosis (ICD Code) Assessment Notes Treatment Notes Treatment Clinical Notes Section Notes 11/08/2023 Hiatal hernia (ICD-10 - K44.9) 11/08/2023 Abdominal pain (ICD-10 - R10.9) Plan Of Treatment No Information Progress Notes * MARY SPAULDING ADOB: [birth year] (58 yo F)Acc No.[id number]:11/08/2023 EGD/MAC Patient: MARY MATTHEWS Provider: Mariely Neri MD :1965 A ge:57 Y S ex:Female Date:11/08/2023 Address:[address] [place] [address] Pcp:Donell James MD Subjective: * Chief Complaints: [...] Date: 11/08/2023 Generated for Deshawn reese/Rosas/Kareenitting on: 11/19/2024 12:37 PM EDT
--- NOTE | ~2024-11-19 | US_ITS ---
EXAMINATION: US TRIPLEX UPPER EXTREMITY, LEFT CLINICAL INFORMATION: Pain and swelling left neck and axilla COMPARISON: None available. TECHNIQUE: Color-flow triplex imaging with spectral analysis and compression Doppler was performed on the left upper extremity. FINDINGS: The left internal jugular, subclavian, and axillary veins are patent and free of thrombus. The imaged segment of the left brachiocephalic vein is patent. Spectral doppler waveforms are normal. The brachial, basilic, cephalic, radial, and ulnar veins are patent and compressible. 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 US/US venous duplex UE LT IMPRESSION: No evidence of deep venous thrombosis involving the left upper extremity. 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 While this is usually an incidental finding, it can indicate decreased flow velocities. Electronically signed by: Jamey Conway MD 11/19/2024 01:02 PM EDT
--- OUTSIDE RECORDS SUMMARY | 2024-11-19 12:37 | XMS_ITS | Patient Health Record ---
Demographics Address [address] [place] [address] Email Address Preferred Language en Marital Status unmarried Mu-Ism Affiliation Unknown Race White Ethnic Group Not or Lati no Author Organization [facility] [place] Address [address] [place] [address] Support Name Relationship Address Phone Maria E Oglesby Emergency Contact [address] [place] [address] MariuszVanesa lezama Guarantor Unknown [phone] Care Team Providers Care Adoption Manager Name Role Phone Donell James MD Primary Care Provider Cecy Bueno Unavailable [phone] Allergies Allergen (clinical drug ingredient) Drug/Non Drug [...] Pending Test Test Name Order Date , [id number]/INJECT, JOINT/BURSA 0 09/09/2020 Insurance Providers Payer Name Payer Address Payer Phone Subscriber Number Group Number Insured Name Patient Relationship to Insured Coverage Start Date Coverage End Date Blue Benefits [address] [address] [place] [address] [id number] Vanesa Oglesby Self - patient is the [...]
== END 2024-11-19 11:49 | disposition home or self-care (01) ==
LOC: HO.US 11:48
PROVIDERS: PCP Family Medicine; Visit Provider Internal Medicine Medical Oncology
DX: M79.602 Pain in left arm (principal)
CPT/HCPCS: 93971

== ENCOUNTER → 2024-11-19 11:56 | Outpatient (BNV) | payer OTHER, SELFPAY | PROVIDERS: PCP Family Medicine; Visit Provider Radiology Diagnostic Radiology | DX: R22.32 Localized swelling, mass and lump, left upper limb (principal) | CPT/HCPCS: 93971 ==

== ENCOUNTER 2024-11-27 15:45 | Outpatient (AMB) | payer OTHER, SELFPAY ==
--- OUTSIDE RECORDS SUMMARY | 2023-11-08 04:20 | XMS_ITS ---
Author Organization [facility] Address [address] [place] [address] Care Team Providers Care Screener Operator Name Role Phone Donell James MD Primary Care Provider Kali Elias Unavailable [phone] Queta oMtta Unavailable Unavailable Encounters Encounter Location Date Provider Diagnosis [facility] [place] [address] [place] [id number] 11/08/2023 Kali Neri Hiatal hernia K44. 9 and Abdominal pain R10.9 Assessments Encounter Date Diagnosis (ICD Code) Assessment Notes Treatment Notes Treatment Clinical Notes Section Notes 11/08/2023 Hiatal hernia (ICD-10 - K44.9) 11/08/2023 Abdominal pain (ICD-10 - R10.9) Plan Of Treatment No Information Progress Notes * MARY SPAULDING ADOB: [birth year] (58 yo F)Acc No.[id number]:11/08/2023 EGD/MAC Patient: MARY MATTHEWS Provider: Mariely Neri MD :1965 A ge:57 Y S ex:Female Date:11/08/2023 Address:[address] [place] [address] Pcp:Donell James MD Subjective: * Chief Complaints: [...] Date: 11/08/2023 Generated for Deshawn reese/Rosas/Kareenitting on: 11/27/2024 03:47 PM EDT
[2024-11-27 15:47] VITALS: BP 120/64; PULSE 69; O2SAT 98; BMI 29.5
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
--- OUTSIDE RECORDS SUMMARY | 2024-11-27 15:48 | XMS_ITS | Encounter Summary ---
Author Organization [facility] Address [address] [place] [address] Phone Care Team Providers Care Pumper Gager Apprentice Name Role Phone Donell James MD Unavailable [phone] Karina Barnett MD Unavailable [phone] Frederic Blake [facility] Unavailable [phone] Kyrie Quesada MD Unavailable [phone] Donell James MD Primary Care Provider + [phone] Encounter Details Date Type Department Care Team (Late st Contact Info) Description 11/09/2024 Orders Only [facility] Medical [address] [address] Provider, MD Kisha [address] [place] [address] Social History Tobacco Use Types Packs/Day Years Used Date Smoking Tobacco: Former Cigarettes 1 29 1 - 05/06/2007 Smokeless Tobacco: Never Alcohol Use Standard Drinks/Week Comments No 0 (1 standard drink = 0.6 oz pur e alcohol) sober since 2001 Child or Family Care Answer Date Record ed Do you have problems with on e of the following making it difficult for you to work, study, or receive health care? No 06/23/2024 Education Answer Date Recorded Are you interested in help w ith more adult education (for example, completing high school, GED, job training, learning the Danish language, technical skills, or developing parenting skills)? No 06/23/2024 Are you concerned about learning? Not on file 06/23/2024 No 06/23/2024 Yes 06/23/2024 Food Answer Date Recorded Within the past 6 months we worried whether our food would run out before we got money to buy more. Never True 06/23/2024 Within the past 6 months the food we bought just didn't last and we didn't have enough money to get more. Never True Residential Stability Answer Date Recor ded What is your housing situation today? I have james pizarro 06/23/2024 How many times have you moved in the past 12 sat th? One time 06/23/2024 Paying for Meds Answer Date Recorded Do you have trouble paying for medicines? No 06/23/2024 Paying Utility Bills Answer Date Record ed Do you have trouble paying your heating or elect ricity bill? No 06/23/2024 Transportation Answer Date Recorded Has the lack of transportati on kept you from medical appointments or from getting medications? No 06/23/2024 Unemployment Answer Date Recorded Are you currently unemployed or working on a part-time or temporary basis, and looking for work? No 07/04/2022 Digital Access Answer Date Recorded No 06/23/2024 Yes 06/23/2024 Do you have reliable internet access at home? Ye s 06/23/2024 Do you have a device (e.g., phone, tablet, computer) with a working camera? Yes 06/23/2024 Intimate Partner Violence Answer Date R ecorded Denied Basic Needs Not on file 06/23/2024 In the past 12 months have y ou been in a relationship with a person who hurts, threatens, or tries to control you? No 06/23/2024 Worried food would run out Not on file 06/23 In the past 12 months have y ou been in a relationship with a person who hurts, threatens, or tries to control you? No 06/23/2024 Comments No Sex and Gender Information Value Date Recorded Sex Assigned at Not on file Legal Sex Female 9:39 PM EDT Gender Identity Not on file Sexual Orientation Not on file Occupation Industry Job Start Date Job End Date [employer] [facility] Not on file Not on file Not on file documented as of this encounter Plan of Treatment Upcoming Encounters Date Type Department Care Team (Late st Contact Info) Description 12/04/2024 4:30 PM EDT Office Visit [facility] [address] [place] [address] Donell James MD [address] [place] [address] documented as of this encounter Procedures Procedure Name Priority Date/Time Associated Diagnosis Comments OUTSIDE IMAGING Routine 11/09/2024 3:41 PM EDT documented in this encounter Results * Outside Imaging Report Only (11/09/2024 3:41 PM EDT) us Historical Provider IMG XR CHEST Final Res ult documented in this encounter Visit Diagnoses Not on filedocumented in this encounter Additional Health Concerns Assessment Noted Time PHQ-2 Depression Total Score: 0 06/23/19 25 2:17 PM EST documented as of this encounter Care Teams Pumper Gager Apprentice Relationship Specialty Start Date End Date Donell James MD [address] [place] [address], [address] [place] [address] PCP - General Family Medicine 04/02/17 Donell James MD [address] [place] [address], [address] [place] [address] Historical LMR Provider 02/23/17 Karina Barnett MD [address] [place] [address], [address] [place] [address] Historical LMR Provider 02/23/17 Frederic Blake, MEDICAL TRANSCRIPTION SUPERVISOR [address] [place] [address], [address] [place] [address] [email or web address] LMR Provider 02/23/17 Kyrie Quesada MD [address] [place] [address], [address] [place] [address] [email or web address] Historical LMR Provider 02/23/17 documented as of this encounter Additional Source Comments The information contained in this document represents components of the legal health record. It is not the complete legal health record.[facility]
--- OUTSIDE RECORDS SUMMARY | 2024-11-27 15:48 | XMS_ITS | Patient Health Record ---
Demographics Address [address] [place] [address] Email Address Preferred Language en Marital Status unmarried Taoism Affiliation Unknown Race White Ethnic Group Not or Lati no Author Organization [facility] [place] Address [address] [place] [address] Support Name Relationship Address Phone Maria E Oglesby Emergency Contact [address] [place] [address] Vanesa Oglesby Guarantor Unknown [phone] Care Team Providers Care Direct Support Worker Name Role Phone Donell James MD Primary Care Provider Cecy Bueno Unavailable [phone] Allergies Allergen (clinical drug ingredient) Drug/Non Drug [...] Pending Test Test Name Order Date , [id number]/INJECT, JOINT/BURSA 0 09/09/2020 Insurance Providers Payer Name Payer Address Payer Phone Subscriber Number Group Number Insured Name Patient Relationship to Insured Coverage Start Date Coverage End Date Blue Benefits [address] [address] [place] [address] [id number] Vanesa Oglesby Self - patient is the [...]
== END 2024-11-27 16:34 | disposition home or self-care (01) ==
LOC: HO.RHE 15:45
PROVIDERS: Visit Provider Student in an Organized Health Care Education/Training Program
DX: M80.00XA Age-related osteoporosis with current pathological fracture, unspecified site, initial encounter for fracture (principal); M15.9 Polyosteoarthritis, unspecified; M79.7 Fibromyalgia
CPT/HCPCS: 99213

== ENCOUNTER 2024-12-09 09:34 | Outpatient (AMB) | payer OTHER, SELFPAY ==
--- OUTSIDE RECORDS SUMMARY | 2023-11-08 04:20 | XMS_ITS ---
Author Organization [facility] Address [address] [place] [address] Care Team Providers Care Bakery Machine Mechanic Name Role Phone Donell James MD Primary Care Provider Kali Elias Unavailable [phone] Queta Motta Unavailable Unavailable Encounters Encounter Location Date Provider Diagnosis [facility] [place] [address] [place] [id number] 11/08/2023 Kali Neri Hiatal hernia K44. 9 and Abdominal pain R10.9 Assessments Encounter Date Diagnosis (ICD Code) Assessment Notes Treatment Notes Treatment Clinical Notes Section Notes 11/08/2023 Hiatal hernia (ICD-10 - K44.9) 11/08/2023 Abdominal pain (ICD-10 - R10.9) Plan Of Treatment No Information Progress Notes * MARY SPAULDING ADOB: [birth year] (58 yo F)Acc No.[id number]:11/08/2023 EGD/MAC Patient: MARY MATTHEWS Provider: Mariely Neri MD :1965 A ge:57 Y S ex:Female Date:11/08/2023 Address:[address] [place] [address] Pcp:Donell James MD Subjective: * Chief Complaints: * * Medical History: Objective: * Vitals: Assessment: * Assessment: 1. H iatal hernia - K44.9 (Primary) 2 . A bdominal pain - R10.9 ? Plan: * Treatment: * Procedure Codes: 4 3239 UPPER GI ENDOSCOPY, BIOPSY * * The named appointment provid er may or may not be the originator of this progress note, and it is not deemed complete until electronically signed by the appointment provider. Sign off status: Pending * Provider: Mariely Neri MD Date: 11/08/2023 Generated for Deshawn reese/Rosas/Kareenitting on: 12/09/2024 09:56 AM EDT
--- NOTE | 2024-12-09 09:35 | MHC.OFFVIS ---
Vital Signs 12/09/24 09:47 Height 5 ft 6 in Weight 185 lb BMI 29.9 BP 159/74 H Blood Pressure Location Lt brachial Position Sitting Pulse 82 Intake Visit Reasons: left chest wall lateral breast implant site pain Intake Note: Patient is seen in office for evaluation of left chest wall pain, hx of ductal carcinoma right breast. Pt c/o: has bilateral implants, pain in the left axilla, discomfort, muscle ?, implants and breast cancer are about 10yrs, discomfort under the left breast MRI:11/13/24 Dr Griffiths: 2021 (Plastic Surgeon) Dining Services Manager Required: No Broadband Engineer: Broadband Engineer Present Accompanied by: Self / Same As Patient Allergies ketamine Allergy (Severe, Verified 12/09/24 09:46) Hallucinations amoxicillin (AMOXICILLIN) Allergy (Intermediate, Verified 12/09/24 09:46) hives/rash Penicillins (PENICILLINS) Allergy (Intermediate, Verified 12/09/24 09:46) hives/rash HPI Comments Details: 58-year-old female patient with a history of right breast carcinoma, triple negative, s/p neoadjuvant chemotherapy (Dr. Patrick) followed by modified radical mastectomy, and chest wall radiation therapy. She underwent modified radical mastectomy on 11/03/2014 with reconstruction using a tissue brownfield program coordinator. The tissue brownfield program coordinator was replaced with a saline implant on 08/25/2015 along with left breast simple mastectomy with reconstruction also with saline implant. She presents today with complaints of left chest wall pain at implant site mainly in the lateral chest with what she calls inflammation. She is uncertain if this is a new normal for her or if it is something of concern. She also notes inflammation in the left supraclavicular region. She notes some tenderness when this site is palpated. Breast MRI performed without IV contrast on 11/13/2024 revealed normal-appearing implants bilaterally without evidence of rupture. Evaluation of the breast parenchyma could not be performed due to this noncontrast study no suspicious findings were noted however. A CT of the chest has been ordered due to the swelling in the supraclavicular region by her primary care physician. She was recently started on gabapentin and meloxicam for the new pain which does not seem to be helping just yet. She is . Family history is negative for breast cancer. She reports undergoing genetic testing which was negative for BRCA PFSH Medical History Chest wall muscle strain Chest wall contusion COPD (chronic obstructive pulmonary disease) Osteoporosis Fracture of greater tuberosity of right humerus Breast cancer GERD (gastroesophageal reflux disease) Depression Fracture of 5th metatarsal Hypothyroid History of breast cancer Surgical History Hx of hand surgery Hx of tonsillectomy Hx of appendectomy Hx of breast reconstruction Hx of bilateral mastectomy Hx of cataract extraction History of esophagogastroduodenoscopy (EGD) H/O colonoscopy History of arthroplasty of left knee Family History Other No family history of cancer Social History Household Members: Significant Other Housing: Apartment Are you a primary career consultant to a significant other at home: No Do you presently have visiting nurse or other home services: No Alcohol intake: never Patient Tobacco Use Status: Former Tobacco user Tobacco use type: Cigarette service: No Current occupational status: employed 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 Review of Systems Const All systems reviewed & are unremarkable except as noted in HPI and below Denies chills, Denies fever(s), Denies headache(s), Denies poor appetite and Denies weakness ENT Denies headache(s) Card Denies chest pain, Denies irregular heart rhythm, Denies palpitations and Denies dyspnea Resp Denies cough, Denies excessive phlegm production and Denies dyspnea GI Denies abdominal pain, Denies bloating, Denies change in bowel habits, Denies constipation, Denies heartburn, Denies diarrhea, Denies nausea and Denies vomiting Denies urinary frequency Musc Denies back pain, Denies muscle weakness and Denies numbness Skin/Breast Denies changing lesions and Denies unusual bruising Neuro Denies headache(s), Denies numbness, Denies paresthesias and Denies weakness Psych Denies anxiety and Denies depression Endo Denies palpitations Иван/Lymph Denies lymphadenopathy Physical Exam Vital Signs: Last Vital Signs Pulse 82 12/09/24 09:47 BP 159/74 H 12/09/24 09:47 BMI result Body Mass Index 29.9 Const General: cooperative and no acute distress Nutritional Appearance: well nourished Orientation/consciousness: patient oriented x3 Limitations: no limitations HEENT Head: Yes normocephalic and Yes atraumatic Ears: hearing grossly normal bilaterally Chest Other: Bilateral mastectomy with saline implants. The right side is tighter than the left but no capsular calcification is palpable. No enlarged lymph nodes noted in the right axilla. Left chest wall reveals a softer implant again with no calcification. No enlarged lymph nodes appreciated. There is some swelling laterally beyond the implant over the latissimus Dorsi muscle but no palpable masses appreciated at this location. In addition in the supraclavicular region there is definitely increased swelling/edema in this location but no palpable mass or enlarged lymph node appreciated. It is very tender with pain radiating into the shoulder and arm. Chest/axillae images:  1. Area of swelling left supraclavicular region 2. Area of swelling left lateral chest wall Resp Effort & Inspection: normal respiratory effort, no audible wheezes, no cough and no respiratory distress Cardio Jugular venous distension: no JVD GI Inspection: Yes normal to inspection Skin Other: Warm, dry, no rash Neuro General: patient oriented x3 Extrem General: Yes no clubbing, cyanosis or edema Assessment & Plan Assessment & Plan (1) Triple negative malignant neoplasm of breast: Code(s): C50.919 - Malignant neoplasm of unspecified site of unspecified female breast Category: Medical Plan 58-year-old female patient presenting for evaluation of left chest wall and supraclavicular pain with a prior history of right breast invasive carcinoma, triple negative status post neoadjuvant chemotherapy, modified radical mastectomy with left simple mastectomy, bilateral reconstruction. A recent MRI revealed no suspicious findings although this was a noncontrasted CT. Examination does not reveal any palpable mass in the area of tenderness. A CT of the chest has been requested by the patient's primary care which is a great idea. I asked the patient to return following the chest CT to review the results and discuss treatment options. She expressed understanding and agrees with the plan. Plastic surgery referral also requested Dr. Bambi Abdi Orders: Referrals Plastic Surgery Referral C50.919 - Malignant neoplasm of unspecified site of unspecified female breast Coding Level of Care Code New Pt Level 4 (59646) Diagnoses Triple negative malignant neoplasm of breast C50.919
[2024-12-09 09:47] VITALS: BP 159/74; PULSE 82; BMI 29.9
--- OUTSIDE RECORDS SUMMARY | 2024-12-09 09:57 | XMS_ITS | Patient Health Record ---
Demographics Address [address] [place] [address] Email Address Preferred Language en Marital Status unmarried Sabianism Affiliation Unknown Race White Ethnic Group Not or Lati no Author Organization [facility] nicholas [place] Address [address] [place] [address] Support Name Relationship Address Phone Maria E Oglesby Emergency Contact [address] [place] [address] Vanesa Oglesby Guarantor Unknown [phone] Care Team Providers Care Health Care Legal Assistant Name Role Phone Donell James MD Primary Care Provider Cecy Bueno Unavailable [phone] Allergies Allergen (clinical drug ingredient) Drug/Non Drug [...] Pending Test Test Name Order Date , [id number]/INJECT, JOINT/BURSA 0 09/09/2020 Insurance Providers Payer Name Payer Address Payer Phone Subscriber Number Group Number Insured Name Patient Relationship to Insured Coverage Start Date Coverage End Date [employer] Benefits [address] [address] [place] [address] [id number] Vanesa Oglesby Self - patient is the [...]
--- OUTSIDE RECORDS SUMMARY | 2024-12-09 09:57 | XMS_ITS | Encounter Summary ---
Author Organization [facility] Address [address] [place] [address] Phone Care Team Providers Care Horseradish Grinder Name Role Phone Donell James MD Unavailable [phone] Karina Barnett MD Unavailable [phone] Frederic Blake [facility] Unavailable [phone] Kyrie Quesada MD Unavailable [phone] Donell James MD Primary Care Provider + [phone] Encounter Details Date Type Department Care Team (Late st Contact Info) Description 11/09/2024 Orders Only [facility] [address] [place] [address] Provider, MD Kisha [address] [place] [address] Social History Tobacco Use Types Packs/Day [...] high school, GED, job training, learning the [place] language, technical skills, or developing parenting skills)? [...] Industry Job Start Date Job End Date [employer] ED Not on file Not on file Not on file documented as of this encounter Plan of Treatment Not on file documented as of this encounter Procedures Procedure Name Priority Date/Time Associated Diagnosis Comments OUTSIDE IMAGING Routine 11/09/2024 3:41 PM EDT documented in this encounter Results * Outside Imaging Report Only (11/09/2024 3:41 PM EDT) Historical Provider MD LINDSAY XR CHEST Final Res ult documented in this encounter Visit Diagnoses Not on filedocumented in this encounter Additional Health Concerns Assessment Noted Time PHQ-2 Depression Total Score: 0 06/23/19 25 2:17 PM EST documented as of this encounter Care Teams Horseradish Grinder Relationship Specialty Start Date End Date Donell James MD [address] [place] [address], [address] [address] [email or web address] PCP - General Family Medicine 04/02/17 Donell James MD [address] [place] [id number] Historical LMR Provider 02/23/17 Karina Barnett MD [address] [place] [address] Historical LMR Provider 02/23/17 Frederic Blake CNP [address] [place] [id number] Historical LMR Provider 02/23/17 Kyrie Quesada MD [address] [place] [address] Historical LMR Provider 02/23/17 documented as of this encounter Additional Source Comments The information contained in this document represents components of the legal health record. It is not the complete legal health record.[facility]
== END 2024-12-09 10:17 | disposition home or self-care (01) ==
LOC: HO.HGS 09:35
PROVIDERS: PCP Family Medicine; Visit Provider Surgery
DX: C50.919 Malignant neoplasm of unspecified site of unspecified female breast (principal)
CPT/HCPCS: 99204

== ENCOUNTER 2025-01-14 08:33 | Outpatient (REF) | payer OTHER, SELFPAY ==
--- OUTSIDE RECORDS SUMMARY | 2023-09-18 12:00 | XMS_ITS ---
Author Organization [facility] Address [address] [place] [phone] Care Team Providers Care Cotton Buyer Name Role Phone Jacob DIAZ, Donell Primary Care Provider Kali Elias [phone] Queta Motta Unavailable Unavailable REASON FOR VISIT Patient presents today for abdominal pain Encounters Encounter Location Date Provider Diagnosis [facility] [address] [place] [phone] 09/18/2023 Kali Neri Plan Of Treatment No Information Progress Notes * MARY SPAULDING ADOB: [birth year] (59 yo F)Acc No.[id number]:09/18/2023 Progress Notes Patient: MARY MATTHEWS Provider: Mariely Neri MD :1965 A ge:57 Y S ex:Female Date:09/18/2023 Address:[address] [place], [place] [id number] Pcp:Donell James MD Subjective: * Chief Complaints: * 1 . Patient presents today for abdominal pain. * Medical History: Objective: * Vitals: Assessment: Plan: * Treatment: * * The named appointment provid er may or may not be the originator of this progress note, and it is not deemed complete until electronically signed by the appointment provider. Sign off status: Pending * Provider: Mariely Neri MD Date: 0 09/18/2023 Generated for Anishai mary ann/Faxing/eTransmitting on: 0 01/14/2025 09:36 AM EDT
--- OUTSIDE RECORDS SUMMARY | 2023-11-08 04:20 | XMS_ITS ---
Author Organization [facility] Address [address] [place] [address] Care Team Providers Care Vehicle Service Agent Name Role Phone Donell James MD Primary Care Provider Kali Elias Unavailable [phone] Queta Motta Unavailable Unavailable Encounters Encounter Location Date Provider Diagnosis [place] Out[facility] [address] [place] [address] [id number] 11/08/2023 Kali Neri Hiatal hernia K44. 9 and Abdominal pain R10.9 Assessments Encounter Date Diagnosis (ICD Code) Assessment Notes Treatment Notes Treatment Clinical Notes Section Notes 11/08/2023 Hiatal hernia (ICD-10 - K44.9) 11/08/2023 Abdominal pain (ICD-10 - R10.9) Plan Of Treatment No Information Progress Notes * MARY SPAULDING ADOB: [birth year] (59 yo F)Acc No.[id number]:11/08/2023 EGD/MAC Patient: MARY MATTHEWS Provider: Mariely Neri MD :1965 A ge:57 Y S ex:Female Date:11/08/2023 Address:[address] [place] [address] Pcp:Donell James MD Subjective: * Chief Complaints: [...] Date: 11/08/2023 Generated for Deshawn reese/Rosas/Kareenitting on: 01/14/2025 09:36 AM EDT
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
--- OUTSIDE RECORDS SUMMARY | 2025-01-14 09:37 | XMS_ITS | Clinical Summary ---
Author Organization [facility] Address [address] [place] [address] Phone Care Team Providers Care Dedicated Driver Name Role Phone Donell James MD Unavailable [phone] Karina Barnett MD Unavailable [phone] Frederic Blake MANAGER WORKERS COMPENSATION Unavailable [phone] Kyrie Quesada MD Unavailable [phone] Donell James MD Primary Care Provider + [phone] Allergies Active Allergy Reactions Criticality Noted Date Comments Adhesive Unknown 10/24/2020 Amoxicillin Hives 07/11/2017 Fidaxomicin 05/10/2023 Ketamine Anxiety High 05/10/2023 Omeprazole 06/27/2023 Brain fog Penicillins Hives 07/11/2017 Denosumab 06/11/2023 Bone and muscle pain Hydrocodone-Acetaminoph en Nausea and/or Vomiting 01/13/2018 Medications folic acid/multivit-mi n/lutein (CENTRUM SILVER ORAL) Take by mouth. Active meloxicam (MOBIC) 15 MG tablet Take 1 tablet by mouth every morning. 03/17/20 23 Active albuterol 90 mcg/actuation inhaler Inhale 2 puffs into the lungs every 6 (six) hours as needed for wheezing. 18 g 03/26/20 23 Active budesonide-formo terol 160-4.5 mcg/actuation inhalerIndicatio ns:COPD, moderate inhale 2 puffs into the lungs twice daily 10.2 g 5 07/15/19 24 Active famotidine (PEPCID) 40 MG tablet Take 40 mg by mouth as needed. 10/25/19 24 Active XOLAIR 300 mg/2 mL subcutaneous syringe Inject 2 mL under the skin every 28 days. 01/06/20 24 Active cetirizine (ZYRTEC) 10 MG tablet Take 10 mg by mouth daily. Active raloxifene (EVISTA) 60 mg tablet Take 1 tablet by mouth every morning. 04/19/20 24 Active traZODone (DESYREL) 50 MG tabletIndication s:Depression TAKE 1 TABLET(50 MG) BY MOUTH EVERY NIGHT NEEDED 90 tablet 2 05/21/19 25 Active levothyroxine (SYNTHROID, LEVOTHROID) 75 MCG tablet TAKE 1 TABLET(75 MCG) BY MOUTH EVERY MORNING 90 tablet 2 09/01/19 25 Active cyclobenzaprine (FLEXERIL) 10 MG tablet take 1 tablet by mouth at bedtime as needed for muscle spasm 10/08/19 25 Active gabapentin (NEURONTIN) 100 MG capsule Take 100 mg by mouth nightly at bedtime. 11/28/19 25 Active citalopram (CELEXA) 20 MG tablet TAKE 1 TABLET(20 MG) BY MOUTH DAILY 90 tablet 3 01/09/20 25 Active citalopram (CELEXA) 20 MG tablet Take 1 tablet (20 mg total) by mouth daily. 90 tablet 1 07/17/19 25 025 Discontinued Active Problems Problem Noted Date Diagnosed Date Overweight (BMI 25.0-29.9) 01/10/2024 Muscle twitching 05/10/2023 Assessment & Plan (05/10/2023 5:10 PM EST): Unclear etiology at this time, will check laboratories to further evaluate for possible electrolyte imbalance. Pt had labs at outside facility in January, unable to review in chart but patient able to review with me in office. Normal CMP and CBC and TSH at that time. Reassuring neuro exam in office today. Will call patient once results available for review. Pt will continue to monitor symptoms, will call with worsening or changing symptoms. Aware of red flags that should prompt urgent reevaluation. Will plan follow up with PCP in a few weeks to reassess if symptoms persist. Pt verbalized understanding, agreeable to plan. PTSD (post-traumatic stress disorder) 06/19/2022 Other acquired deformities of left foot 09/01/19 22 Urticaria, idiopathic 05/12/2021 History of bilateral mastectomy 10/02/2019 Acquired hypothyroidism 07/11/2017 Seasonal allergic rhinitis due to pollen 018 Neck pain 07/11/2017 COPD, moderate 07/11/2017 Assessment & Plan (06/12/2019 8:38 AM EST): Increased SOB and cough from baseline c/w COPD exacerbation -continue symbicort and schedule albuterol q4H while awake. She just restarted the symbicort so will have her continue this for at least 2 weeks and try to avoid oral steroids. -start doxycycline 100mg po bid for 7 days, encouraged use of probiotic -use tessalon perles tid prn cough suppression as this is really bothering her at night. -work note given Moderate episode of recurrent major depressive d isorder 07/11/2017 Generalized anxiety disorder 07/11/2017 Generalized edema 07/11/2017 Gastroesophageal reflux disease without esophagi tis 07/11/2017 Other hyperlipidemia 07/11/2017 Multiple pulmonary nodules 07/11/2017 Malignant neoplasm of right female breast 2017 Osteoporosis 07/11/2017 Pigmented skin lesion 07/11/2017 Plantar fasciitis 07/11/2017 Pulmonary emphysema 07/11/2017 Resolved Problems Problem Noted Date Diagnosed Date Resolved Date Mass of breast 07/11/2017 01/14/2018 Encounters Date Type Department Care Team Description 01/08/[address] [place] [address] Frederic Blake, CARLYLE Medication Refill 12/25/[address] [place] [address] Donell James MD Lab Orders (CT scheduled 01/22/25) 12/04/2024 4:30 PM EDT Office Visit [address] [place] [address] Donell James MD Localized swelling of chest wall (Primary Dx); Subacute cough; Malignant neoplasm of right female breast, unspecified estrogen receptor status, unspecified site of breast; Multiple pulmonary nodules 11/20/2024 Orders Only [address] [place] [address] ProviderKisha MD 11/17/[address] [place] [address] Charline Richey, RN Results 11/12/2024 9:45 AM EDT Office Visit [address] [place] [address] Kyrie Quesada MD Mastodynia (Primary Dx); Hx of breast cancer 11/12/[address] [place] [address] Grazyna Card RN urgent breast MRI 11/12/[address] [place] [address] Donell James MD Triage (Red call - soreness and tenderness at site of implant, very difficult to breath deeply without pain) 11/09/2024 Orders Only [address] [place] [address] Provider, MD Kisha from Last 3 Months Immunizations Immunization Administration Dates Next Due COVID-19 (Pre-02/25) Pfizer Vaccine, Bivalent 12+ 01/14/2022 COVID-19 (Pre-02/25) Pfizer Vaccine, mRNA, PF 01/30/2021,05/13/2020,04/21/2020 Hepatitis B Adult 12/18/2019 INFLUENZA, SPLIT VIRUS, TRIVALENT PF 03/12/2024, 02/05/2017 INFLUENZA, SPLIT VIRUS, TRIV ALENT W/ PRESERVATIVE IM 01/05/2020,04/11/2016 Influenza Quadrivalent MDCK Preservative Free IM 03/15/2023,01/14/2022 Influenza Quadrivalent Preservative Free IM 01/05,02/17/2020,02/11/2019 Influenza Quadrivalent w/ Preservative IM 2014 Influenza Recombinant Milo valent Preservative Free IM 02/14/2018 Pneumococcal conjugate PCV13 04/11/2016 Pneumococcal polysaccharide PPSV23 11/02/2019 Tdap 03/12/2024,03/15/2019,05/18/2011 Family History Medical History Relation Comments Alcohol abuse Father Asthma Father and other lung p roblems CV disease Maternal Grandmother Hypertension Maternal Grandmother Alcohol abuse Mother Hyperlipidemia Mother Hypertension Mother Cancer Paternal Grandfather Cervical cancer Paternal Grandmother Diabetes Sister 1 sister Lupus Sister 1 sister Relation Status Comments Brother Alive Daughter Alive Father Maternal Grandmother Mother Paternal Grandfather Paternal Grandmother Sister Alive Son Alive Social History Tobacco Use Types Packs/Day Years Used Date Smoking Tobacco: Former Cigarettes 1 29 1 - 05/06/2007 Smokeless Tobacco: Never Tobacco Cessation:Counseling Given: Not Answered Alcohol Use Standard Drinks/Week Comments No 0 [...] high school, GED, job training, learning the German language, technical skills, or developing parenting skills)? [...] is your housing situation today? I have jamesmacie pizarro 06/23/2024 How many times have you moved in the past 12 sat ths? One time 06/23/2024 Paying for Meds Answer [...] Industry Job Start Date Job End Date [employer] ED Not on file Not on file Not on file Last Filed Vital Signs Vital Sign Reading Time Taken Comments Blood Pressure 120/60 12/04/2024 4:37 PM EDT Pulse 78 12/04/2024 4:37 PM EDT Temperature 36.2 C (97.2 F) 12/04/2024 4:37 PM EDT Respiratory Rate 16 02/07/2019 11:30 AM EDT Oxygen Saturation 99% 12/04/2024 4:37 PM EDT Inhaled Oxygen Concentration - - Weight 79.8 kg (176 lb) 11/12/2024 9:57 AM EDT Height 168 cm (5' 6.14 ) 12/04/2024 4:37 PM EDT Body Mass Index 28.29 11/12/2024 9:57 AM EDT Plan of Treatment Health Maintenance Due Date Last Done Comments ZOSTER VACCINES (1 of 2) 1985 COLOGUARD 12/12/2011 FIT TEST 12/12/2011 FOBT 12/12/2011 SIGMOIDOSCOPY 12/12/2011 VIRTUAL COLONOSCOPY 12/12/2011 SCREENING FOR DIABETES 08/30/2024 08/30/2021 PNEUMOCOCCAL VACCINES (50+ years) (3 of 3 - PPSV23, PCV20 or PCV21) 11/01/2024 11/02/2019, 04/11/2016 INFLUENZA VACCINE (#1) 2024 , 03/15/2023, 01/14/2022, Additional history exists COVID-19 VACCINE ( season) 2025 05/11/2023, 01/14/2022, 01/30/2021, Additional history exists DEPRESSION SCREENING 06/23/2025 06/23/2024 TSH LEVEL 07/03/2025 07/03/2024, 12/2023, 01/15/2023, Additional history exists LIPID PANEL 07/10/2025 05/09/2018, 02/04, 02/26/2014, Additional history exists Postponed from 05/09/2023 (Not Clinically Appropriate) COLONOSCOPY 11/04/2025 11/04/2020, 08/01/2016 COLORECTAL CANCER SCREENING 11/04/2025 PAP SMEAR 08/05/2029 08/05/2024, 10/08/2016 Adult Td,Tdap Booster 03/12/2034 03/12/2024 , 03/15/2019, 05/18/2011 HIV ONE-TIME SCREENING (18-65 YEARS) Completed 02/24/2019 HEPATITIS C SCREENING Completed 06/20/2020 SMOKING STATUS SCREENING (Once After 26 Yrs) Completed 12/04/2024 HEPATITIS A VACCINES Aged Out No long er eligible based on patient's age to complete this topic HIB VACCINES Aged Out No longer eligi ble based on patient's age to complete this topic MENINGOCOCCAL VACCINES (ACWY) Aged Out No longer eligible based on patient's age to complete this topic MENINGOCOCCAL VACCINES (B) Aged Out N o longer eligible based on patient's age to complete this topic Medical Devices Not on file Procedures Procedure Name Priority Date/Time Associated Diagnosis Comments CT CHEST Urgent/patient waiting 12/04/2024 4:59 PM EDT Localized swelling of chest wall Subacute cough Malignant neoplasm of right female breast, unspecified estrogen receptor status, unspecified site of breast Multiple pulmonary nodules OUTSIDE IMAGING Routine 11/19/2024 10:45 AM EDT BI MRI BREAST (BILATERAL) Routine 11/13/2024 11:20 AM EDT Mastodynia Hx of breast cancer OUTSIDE IMAGING Routine 11/09/2024 3:41 PM EDT PAP TEST Routine 08/05/2024 12:00 AM EDT TSH WITH REFLEX Routine 07/03/2024 3:21 PM EST Acquired hypothyroidism HM COLONOSCOPY FOR RESULT ENTRY ONLY Routine 11/04/2020 HEPATITIS C ANTIBODY, QUALITATIVE Routine 06/20/2020 3:51 PM EST Lower abdominal pain LIPID PANEL Routine 05/09/2018 8:27 AM EST Familial hypercholesterolemia from Last 3 Months or Most Recently Relevant to Health Maintenance Results * Outside Imaging Report Only (11/19/2024 10:45 AM EDT) Historical Provider MD LINDSAY XR CHEST Final Res ult * MRI Breast (Bilateral) (11/13/2024 11:20 AM EDT) Anatomical Region Laterality Modality Breast Left, Breast Right, Breast Bilateral Bila teral Breast Diagnostic Kyrie Quesada MD IMG MR BREAST Final Result * Outside Imaging Report Only (11/09/2024 3:41 PM EDT) Historical Provider MD LINDSAY XR CHEST Final Res ult * Pap Test (08/05/2024 12:00 AM EDT) 08/05/2024 08/06/2024 9:4 6 AM EDT Narrative SEE NARRATIVE - 08/10/2024 1:52 PM EDT [address] [address] Preschool Teacher'S Assistant: Eric Still MD REGISTER OF WILLS Cytology Report FINAL DIAGNOSIS A. PAP SMEAR (THIN PREP) CE: SPECIMEN ADEQUACY: Satisfactory for evaluation. INTERPRETATION: NEGATIVE FOR INTRAEPITHELIAL LESION OR MALIGNANCY. Atrophy. This specimen was analyzed by the automated ThinPrep Imaging System ([employer].) and the selected arnett were reviewed by a space and missile defense operations. Electronically Signed Out By: ANTONIA Montalvo([facility]) The Pap test is a screening test primarily for squamous cancers and precursors and has associated false-negative and false-positive results. New technologies such as liquid-based preparations may decrease but will not eliminate all false-negative results. Regular sampling and follow-up of unexplained clinical signs and symptoms are recommended to minimize false negative results. PROCEDURES/ADDENDA HPV Testing (Requested) Ordered Date: 08/06/2024 A. PAP SMEAR (THIN PREP) CE: High-risk HPV Panel w/ extended genotyping NEG HPV 16-NEG HPV 18-NEG HPV 45-NEG HPV 33/58-NEG HPV 31-NEG HPV 56/59/66-NEG HPV 51-NEG HPV 52-NEG HPV 35/39/68-NEG Performed by real-time polymerase chain reaction (PCR) at [address] using the FDA-approved BD Onclarity9 HPV Assay with extended genotyping. Uses of the assay in scenarios other than those approved by the FDA should be considered off-label use. The accuracy and precision of this test for all other off-label specimen sources has been verified in the Cytopathology Laboratory of the [facility] and has not been cleared or approved by the U.S. Food and Drug Administration. Clinical correlation is advised. The assay assesses the E6/E7 DNA target and utilizes human beta globin as an internal control. Cytology and HPV testing are screening assays and should not be used as the sole means of detecting cancer. False-positives and false-negatives can occur. Electronically Signed Out By: MIRIAM Elizabeth([facility]) on 08/07/2024 16:07 CLINICAL HISTORY Date of Last Menstrual Period: Not Provided Menstrual History: Post Menopausal Other Clinical Conditions: Screening Pap SPECIMEN SOURCE A: PAP SMEAR (THIN PREP) CE Patient Name: VANESA SPAULDING : 1965 (Age: 58) Sex: F Institution: [facility] Location: [facility] Date of Collection: 08/05/2024 Date of Reported: 08/10/2024 13:52 Results to: Shani Barrett MD Shani Barrett MD CYTOLOGY ORDERABLES Final Result SEE NARRATIVE * TSH with reflex (07/03/2024 3:21 PM EST) Blood Donell James MD LAB BLOOD ORDERABLES Final Result Performing Organization Address City/State/[facility] Co de Phone Number EXTERNAL NON-INTERFACED REF LAB * HM COLONOSCOPY FOR RESULT ENTRY ONLY (11/04/2020) Kisha Provider HEALTH MAINTENANCE Edited Result - Final * Hepatitis C antibody, qualitative (06/20/2020 3:51 PM EST) HCV NON-REACTIV E NON-REACTI VE [facility] Blood 06/20/2020 3:51 PM EST 06/20/2020 3:54 PM EST Donell James MD LAB BLOOD ORDERABLES Final Result Performing Organization Address [facility] Co de Phone Number [address] [phone] * (ABNORMAL) Lipid panel (05/09/2018 8:27 AM EST) HDL 92 mg/dL [facility] Comment: Interpretation <40 mg/dL: Low HDL cholesterol (major risk factor for CHD) Greater than or equal to 60 mg/dL: High HDL cholesterol ( negative risk factor for CHD) HDL - cholesterol is affected by a number of factors, e.g. smoking, excerise, hormones, sex and age. CHOLESTEROL 237 0 - 240 mg/dL [facility] TRIGLYCERIDES 83 30 - 160 mg/dL [facility] LDL 128 50 - 129 mg/dL [facility] Comment: LDL levels in terms of risk for coronary heart disease: <100 mg/dL: Optimal 100-129 mg/dL: Near or above optimal 130-159 mg/dL: Borderline high 160-189 mg/dL: High >190 mg/dL: Very High CARDIAC RISK RATIO 2.6(L) 3.3 - 4.4 C [facility] Blood 05/09/2018 8:27 AM EST 05/09/2018 8:29 AM EST us Donell James MD LAB BLOOD ORDERABLES Final Result Performing Organization Address City/State/[facility] Co de Phone Number [address] [phone] from Last 3 Months or Most Recently Relevant to Health Maintenance Insurance [employer] ADMINISTRATORS [employer] ADMINISTRATORS Member Subscriber Plan / Payer (Ef fective 2019-Present) Name:Vanesa Spaulding Relation to Subscriber:Self Name:Vanesa Spaulding Payer ID:[id number] (NAIC) Type:PPO Address: [place] [id number] [employer]EF[employer] ADMINISTRATORS [employer]EF[employer]ORS [employer] ADMINISTRATORS [employer]MINISTRATORS [employer]MINIST[employer]ORS Member Subscriber Plan / Payer (Ef fective 2019-Present) Name:Vanesa Spaulding Relation to Subscriber:Self Name:Vanesa Spaulding Payer ID:[id number] (NAIC) Type:PPO Address: [place] [phone] [employer] Care Teams Dedicated Driver Relationship Specialty Start Date End Date Donell James MD [address] [place] [address], [address] [place] [address] PCP - General Family Medicine 04/02/17 Donell James MD [address] [place] [address], [address] [place] [address] Historical LMR Provider 02/23/17 Karina Barnett MD [address] [place] [address], [address] [place] [address] Historical LMR Provider 02/23/17 Frederic Blake, CARLYLE [address] [place] [address], [address] [place] [address] Historical LMR Provider 02/23/17 Kyrie Quesada MD [address] [place] [address], [address] [place] [address] Historical LMR Provider 02/23/17 Additional Source Comments The information contained in this document represents components of the legal health record. It is not the complete legal health record.[facility]
--- OUTSIDE RECORDS SUMMARY | 2025-01-14 09:37 | XMS_ITS | Encounter Summary ---
Author Organization [facility] Address [address] [place] [address] Phone Care Team Providers Care Floating Derrick Operator Name Role Phone Leena Stanford NP Unavailable Donell James MD Unavailable [phone] Karina Barnett MD Unavailable [phone] Laverne Ribera [employer]ODU[employer] MACHINE OPERATOR Unavailable [phone] Laverne Nguyen MD Unavailable [phone] Anderson Luciano CLAY PRODUCTS MACHINE OPERATOR Unavailable Frederic Blake PIPELINE INTEGRITY ENGINEER Unavailable [phone] Briana Wild CLAY [employer]ODUCTS MACHINE OPERATOR Unavailable Suzanne Valera MD Unavailable [phone] Kyrie Quesada MD Unavailable [phone] Elvis Wetzel PIPELINE INTEGRITY ENGINEER Unavailable Dolores Meyer MD Unavailable [phone] Kali No MD Unavailable [phone] Donell James MD Primary Care Provider + [phone] Encounter Details Date Type Department Care Team (Late st Contact Info) Description 02/07/2019 EpicOnHand Encounter [facility] [address] [place] [address] Kyrie Quesada MD [address] [facility], [address] [place], [place] [id number] [email or web address] Social History Tobacco Use Types Packs/Day Years Used Date Smoking Tobacco: Former Cigarettes Q uit: 2008 Smokeless Tobacco: Never Alcohol Use Standard Drinks/Week Comments No 0 (1 standard drink = 0.6 oz pur e alcohol) sober since 2001 Comments No Sex and Gender Information Value Date Recorded Sex Assigned at Not on file Legal Sex Female 9:39 PM EDT Gender Identity Not on file Sexual Orientation Not on file Occupation Industry Job Start Date Job End Date [employer] ED Not on file Not on file Not on file documented as of this encounter Progress Notes * Kyrie Quesada MD - 02/07/2019 10:35 AM EDT Patient calls to report rash and hives 4 days following completion of cefuroxime. She reports no new soaps, detergents, skin care products. She recently returned from travel to [place]. The timing for allergy to medication is inconsistent with expectations to cause present reaction. As such, I recommended she go to urgent care for evaluation. Patient agrees with plan. documented in this encounter Plan of Treatment Not on file documented as of this encounter Visit Diagnoses Not on filedocumented in this encounter Additional Health Concerns Infection Onset Date Last Indicated Resolved Time CoV-Risk 10/05/2019 10/05/2019 10/19/2019 1:23 AM EDT CoV-Risk 04/09/2020 04/09/2020 04/23/2020 1:24 AM EST CoV-Risk 05/17/2021 05/17/2021 05/27/2021 1:24 AM EST CoV-Risk Comment:Per Ambulatory Triage Form 08/24/2021 08/30/202108/31 8:19 AM EDT CoV-Exposed Comment:Positive COVID-19 08/24/2021 08/24/2021 08/31/2021 8:1 9 AM EDT COVID-19 08/30/2021 08/30/2021 09/20/2021 1:23 AM EDT CoV-Exposed Comment:Recent close contact documented in the COVID-19 PCR/PRO order 04/03/2022 04/09/2022 04/24/2022 1:[address] CoV-Risk 04/09/2022 04/09/2022 04/20/2022 1:22 AM EST CoV-Presumed 05/25/2022 05/25/2022 06/15/2022 1:21 AM EST CoV-Risk 03/11/2023 03/11/2023 03/22/2023 1:22 AM EST COVID-19 12/14/2023 12/14/2023 01/04/2024 1:21 AM EDT CoV-Risk 04/30/2024 04/30/2024 05/11/2024 1:22 AM EST documented as of this encounter Care Teams Floating Derrick Operator Relationship Specialty Start Date End Date Donell James MD [address] [place] [address], [address] [place] [address] PCP - General Family Medicine 04/02/17 Leena Stanford NP [address] [place] [address] Historical LMR Provider 02/23/17 2 Donell James MD [address] [place] [address], [address] [place] [address] Historical LMR Provider 02/23/17 Karina Barnett MD [address] [place] [address], [address] [place] [address] Historical LMR Provider 02/23/17 Laverne Ribera CLAY PRODUCTS MACHINE OPERATOR [address] [place] [address] Historical LMR Provider 02/23/17 05/13/21 Laverne Nguyen MD [address] [place] [address] [email or web address] Historical LMR Provider 02/23/17 05/13/21 Anderson Luciano, CLAY PRODUCTS MACHINE OPERATOR [address] [place] [address] 2[facility] [address] [email or web address] Historical LMR Provider 02/23/17 05/13/21 Frederic Blake CNP [address] [place] [address], [address] [place] [address] [email or web address] Historical LMR Provider 02/23/17 Briana Wild, JENNIFER [address] [place] [address] Historical LMR Provider 02/23/17 2 Suzanne Valera MD [address] [place] [address] Historical LMR Provider 02/23/17 2 Kyrie Quesada MD [address] [place] [address], [address] [place] [address] Historical LMR Provider 02/23/17 Elvis Wetzel PIPELINE INTEGRITY ENGINEER [address] [place] [address], [address] [place] [address] Historical LMR Provider 02/23/17 05/13/21 Dolores Meyer MD [address] [place] [address] Historical LMR Provider 02/23/17 2 Kali No MD [address] [place] [address] [facility], [place] [address] [email or web address] Historical LMR Provider 02/23/17 2 documented as of this encounter Additional Source Comments The information contained in this document represents components of the legal health record. It is not the complete legal health record.[facility]
--- OUTSIDE RECORDS SUMMARY | 2025-01-14 09:37 | XMS_ITS | Encounter Summary ---
Author Organization [facility] Address [address] [place] [address] [place] [address] Phone Care Team Providers Care Whizzer Operator Name Role Phone Donell James MD Unavailable [phone] Karina Barnett MD Unavailable +[phone] Frederic Blake POLICE CHIEF DEPUTY Unavailable [phone] Kyrie Quesada MD Unavailable [phone] Donell James MD Primary Care Provider + [phone] Reason for Visit * Reason Onset Date Comments Results 11/17/2024 Encounter Details Date Type Department Care Team (Late st Contact Info) Description 11/17/2024 Telephone Garcia [address] [address] Charline Richey, RN [address] [place], [place] [id number] [email or web address] Results Social History Tobacco Use Types Packs/Day Years [...] high school, GED, job training, learning the Surinamese language, technical skills, or developing parenting skills)? [...] Industry Job Start Date Job End Date [employer] ED Not on file Not on file Not on file documented as of this encounter Progress Notes * Charline Richey RN - 11/17/2024 9:16 AM EDT Images from the original note were not included. Patient notified of results and instructions as per provider. Verbalizes understanding and agreement. She spoke with her oncologist and the oncologist would have preferred an MRI with contrast. Withoutcontrast is inconclusive for masses. She is going to move forward with her oncologist. Sent to provider to review. Message Received: Yesterday Kyrie Quesada MD P [facility] Rn Cc: Donell James MD Notify patient MRI of the breast appears benign. No findings of implant rupture. No masses appreciated. No adenopathy. documented in this encounter Plan of Treatment Not on file documented as of this encounter Visit Diagnoses Not on filedocumented in this encounter Additional Health Concerns Assessment Noted Time PHQ-2 Depression Total Score: 0 06/23/19 25 2:17 PM EST documented as of this encounter Care Teams Whizzer Operator Relationship Specialty Start Date End Date Donell James MD [address] [place] [address], [address] [address] PCP - General Family Medicine 04/02/17 Donell James MD [address] [place] [address], [address] [address] Historical LMR Provider 02/23/17 Karina Barnett MD [address] [place] [address], [address] [address] Historical LMR Provider 02/23/17 Frederic Blake, POLICE CHIEF DEPUTY [address] [place] [address], [address] [place] [address] [email or web address] Historical LMR Provider 02/23/17 Kyrie Quesada MD [address] [place] [address], [address] [place] [address] [email or web address] Historical LMR Provider 02/23/17 documented as of this encounter Additional Source Comments The information contained in this document represents components of the legal health record. It is not the complete legal health record.[facility]
--- OUTSIDE RECORDS SUMMARY | 2025-01-14 09:37 | XMS_ITS | Patient Health Record ---
Demographics Address [address] [place] [address] Email Address Preferred Language en Marital Status unmarried Temple Affiliation Unknown Race White Ethnic Group Not or Lati no Author Organization [facility] [place] Address [address] [address] Support Name Relationship Address Phone Maria E Oglesby Emergency Contact [address] [place] [address] Vanesa Oglesby Guarantor Unknown [phone] Care Team Providers Care Fitness And Wellness Manager Name Role Phone Donell James MD Primary Care Provider Cecy Bueno Unavailable [phone] Allergies Allergen (clinical drug ingredient) Drug/Non Drug [...] Pending Test Test Name Order Date , [id number]/INJECT, JOINT/BURSA 0 09/09/2020 Insurance Providers Payer Name Payer Address Payer Phone Subscriber Number Group Number Insured Name Patient Relationship to Insured Coverage Start Date Coverage End Date [employer] Benefits [address] [address] [place] [address] [id number] Vanesa Oglesby Self - patient is the [...]
[2025-01-14 14:09] LABS: Anion Gap 12 (12-20); Blood Urea Nitrogen 19 mg/dL (9-16); Calcium 9.2 mg/dL (8.4-10.2); Carbon Dioxide 27 mmol/L (22-29); Chloride 105 mmol/L (96-108); Estimated Glomerular Filt Rate 60; Potassium 3.8 mmol/L (3.3-5.1); Sodium 140 mmol/L (135-145)
== END 2025-01-14 08:34 | disposition home or self-care (01) ==
LOC: HO.HMGCLDS 08:33
PROVIDERS: PCP Family Medicine; Visit Provider Pediatrics
DX: R93.89 Abnormal findings on diagnostic imaging of other specified body structures (principal)
CPT/HCPCS: 36415; 80048

== ENCOUNTER 2025-01-22 14:49 | Outpatient (REF) | payer OTHER, SELFPAY ==
--- NOTE | ~2025-01-22 | CT_ITS ---
EXAMINATION: CT CHEST WITH IV CONTRAST INDICATION: COUGH PERSISTENT COMPARISON: Comparison is made with the prior examination dated 11/27/2022. TECHNIQUE: Helical CT scan of the chest was performed following administration of intravenous contrast. Coronal and sagittal reformatted images were generated and reviewed. This CT exam was performed with one or more of the following dose reduction techniques: automated exposure control, adjustment of the mA and/or kV according to patient size, use of iterative reconstruction technique. DLP: 166 mGy-cm CHEST: THYROID: The thyroid is unremarkable. LUNGS: Again seen are fibrotic changes in the subpleural right upper and middle lobes which may be due to prior breast radiation therapy. Again seen is a 5 mm subpleural nodule in the right lower lobe (series 4, image 72) as well as a 3 mm nodule in the right lower lobe (series 4, image 85). There is a 3-4 mm nodule in the right middle lobe (series 4, image 93) which appears slightly larger than on the prior study. There are stable subpleural nodules in the left lower lobe measuring up to 5 mm in size (series 4, images 109 and 122). There are no focal airspace opacities. MEDIASTINUM: There is no mediastinal lymphadenopathy. LETICIA: There is no hilar lymphadenopathy. CARDIOVASCULATURE: The heart is normal in size. There is no pericardial effusion. The thoracic aorta is normal in caliber. DEGREE OF CORONARY CALCIFICATION: none PLEURA: There is no pleural effusion. No pneumothorax. MAIN AIRWAYS: The mainstem bronchi and proximal branches are patent. AXILLA: There is no axillary lymphadenopathy. BONES AND SOFT TISSUES: Again seen are bilateral breast implants. There is wall thickening of the distal esophagus. UPPER ABDOMEN: The visualized portions of the liver, spleen, and adrenals are unremarkable. CT/CT chest w IV con IMPRESSION: 1. Scattered bilateral pulmonary nodules. A right middle lobe nodule appears minimally larger than on the prior study which could be due to slice selection. There are no focal airspace opacities. 2. Wall thickening of the distal esophagus. Upper endoscopy or barium swallow should be considered. Electronically signed by: Kali Escobedo MD 01/22/2025 03:41 PM EDT RP
--- OUTSIDE RECORDS SUMMARY | 2025-01-22 14:51 | XMS_ITS | Encounter Summary ---
Author Organization [facility] Address [address] [place] [address] [place] [address] Phone Care Team Providers Care Regional Marketing Director Name Role Phone Donell James MD Unavailable [phone] Karina Barnett MD Unavailable [phone] Frederic Blake RACKING TECHNICIAN Unavailable [phone] Kyrie Quesada MD Unavailable [phone] Donell James MD Primary Care Provider + [phone] Reason for Visit * Reason Onset Date Comments Results 11/17/2024 Encounter Details Date Type Department Care Team (Late st Contact Info) Description 11/17/2024 Telephone Garcia [address] [address] Charline Richey, RN [address] [place], [place] [phone] [email or web address] Results Social History Tobacco Use Types Packs/Day [...] high school, GED, job training, learning the Albanian language, technical skills, or developing parenting skills)? [...] Industry Job Start Date Job End Date [facility] ED Not on file Not on file [...] Received: Yesterday Kyrie Quesada MD P [facility] Rn Cc: Donell James MD Notify patient [...] documented as of this encounter Care Teams Regional Marketing Director Relationship Specialty Start Date End Date Donell James MD [address] [place] [address], [address] [address] PCP - General Family Medicine 04/02/17 Donell James MD [address] [place] [address], [address] [address] Historical LMR Provider 02/23/17 Karina Barnett MD [address] [place] [address], [address] [address] Historical LMR Provider 02/23/17 Frederic Blake, RACKING TECHNICIAN [address] [place] [address], [address] [place] [address] [email or web address] Historical LMR Provider 02/23/17 Kyrie Quesada MD [address] [place] [address], [address] [place] [address] [email or web address] Historical LMR Provider 02/23/17 documented as of this encounter Additional Source Comments The information contained in this document represents components of the legal health record. It is not the complete legal health record.[facility]
--- OUTSIDE RECORDS SUMMARY | 2025-01-22 14:51 | XMS_ITS | Encounter Summary ---
Author Organization [facility] Address [address] [place] [address] Phone Care Team Providers Care Highway Commissioner Name Role Phone Leena Stafnord NP Unavailable Donell James MD Unavailable [phone] Karina Barnett MD Unavailable [phone] Laverne Ribera COMPUTER ANALYST SUPERVISOR Unavailable [phone] Laverne Nguyen MD Unavailable [phone] Anderson Luciano COMPUTER ANALYST SUPERVISOR Unavailable Frederic Blake SCAFFOLD BUILDER Unavailable [phone] Briana Wild COMPUTER ANALYST SUPERVISOR Unavailable Suzanne Valera MD Unavailable [phone] Kyrie Quesada MD Unavailable [phone] Elvis Wetzel SCAFFOLD BUILDER Unavailable Dolores Meyer MD Unavailable [phone] Kali No MD Unavailable Donell James MD Primary Care Provider + [phone] Encounter Details Date Type Department Care Team (Late st Contact Info) Description 02/07/2019 [facility] Encounter [facility] [address] [place] [address] Kyrie Quesada MD 22 [facility], [address] [place], [place] [phone] [email or web address] Social History Tobacco Use Types Packs/Day Years [...] Industry Job Start Date Job End Date [employer] [facility] ED Not on file Not on file Not on file documented as of this encounter Progress Notes * Kyrie Quesada MD - 02/07/2019 10:35 AM EDT Patient calls to report rash and hives 4 days following completion of cefuroxime. She reports no new soaps, detergents, skin care products. She recently returned from travel to [place]. The timing for allergy to medication is [...] documented as of this encounter Care Teams Highway Commissioner Relationship Specialty Start Date End Date Donell James MD [address] [place] [address], [address] [place] [address] PCP - General Family Medicine 04/02/17 Leena Stanford NP [address] [place] [address] Historical LMR Provider 02/23/17 2 Donell James MD [address] [place] [address], [address] [place] [address] Historical LMR Provider 02/23/17 Karina Barnett MD [address] [place] [address], [address] [place] [address] Historical LMR Provider 02/23/17 Laverne Ribera COMPUTER ANALYST SUPERVISOR [address] [place] [address] Historical LMR Provider 02/23/17 05/13/21 Laverne Nguyen MD [address] [place] [address] [email or web address] Historical LMR Provider 02/23/17 05/13/21 Anderson Luciano, COMPUTER ANALYST SUPERVISOR [address] [place] [address] 2_[place] [address] [email or web address] Historical LMR Provider 02/23/17 05/13/21 Frederic Blake CNP [address] [place] [address], [address] [place] [address] [email or web address] Historical LMR Provider 02/23/17 Briana Wild, JENNIFER [address] [place] [address] Historical LMR Provider 02/23/17 2 Suzanne Valera MD [address] [place] [address] Historical LMR Provider 02/23/17 2 Kyrie Quesada MD [address] [place] [address], [address] [place] [address] Historical LMR Provider 02/23/17 Elvis Wetzel SCAFFOLD BUILDER [address] [place] [address], [address] [place] [address] Historical LMR Provider 02/23/17 05/13/21 Dolores Meyer MD [address] [place] [address] Historical LMR Provider 02/23/17 2 Kali No MD [address] [place] [address] [facility], [place] [address] [email or web address] Historical LMR Provider 02/23/17 2 documented as of this encounter Additional Source Comments The information contained in this document represents components of the legal health record. It is not the complete legal health record.[facility]
--- OUTSIDE RECORDS SUMMARY | 2025-01-22 14:51 | XMS_ITS | Encounter Summary ---
Author Organization [facility] Address [address] [place] [address] [place] [address] Phone Care Team Providers Care Smearer Name Role Phone Donell James MD Unavailable [phone] Karina Barnett MD Unavailable [phone] Frederic Blake VIDEO GAME ENGINEER Unavailable [phone] Kyrie Quesada MD Unavailable [phone] Donell James MD Primary Care Provider + [phone] Reason for Visit * Reason Onset Date Comments Lab Orders 12/25/2024 CT scheduled 01/04 01/28 Encounter Details Date Type Department Care Team (Late st Contact Info) Description 12/25/2024 Telephone [facility] [address] [address] Donell James MD 22 [facility], [address] [place], [place] [id number] [email or web address] Lab Orders (CT scheduled 01/22/25) Social History Tobacco Use Types Packs/Day Years [...] high school, GED, job training, learning the French language, technical skills, or developing parenting skills)? [...] Industry Job Start Date Job End Date [facility] ED Not on file Not on file Not on file documented as of this encounter Progress Notes * Tania Martinez - 01/22/2025 9:56 AM EDT Patient notified of labs results as per provider requested. Pt verbalized understand. * Alycia Del Rosario RN - 12/28/2024 9:22 AM EDT Faxed via rightfax to [facility] * Kyrie Quesada MD - 12/25/2024 5:21 PM EDT Order signed, please fax to [facility] * Ana Laura Ghosh LPN - 12/25/2024 1:42 PM EDT Received faxed request for lab work. Patient has a CT scheduled and needs BMP Orders will need to be faxed to [facility] once signed. documented in this encounter Plan of Treatment Not on file documented as of this encounter Procedures Procedure Name Priority Date/Time Associated Diagnosis Comments BASIC METABOLIC PANEL Routine 01/14/2025 2:35 PM EDT Abnormal imaging of intrathoracic organ documented in this encounter Results * Basic metabolic panel (01/14/2025 2:35 PM EDT) Blood Kyrie Quesada MD LAB BLOOD ORDERABLES Final Res ult EXTERNAL NON-INTERFACED REF LAB documented in this encounter Visit Diagnoses Diagnosis Abnormal imaging of intrathoracic organ- Primary documented in this encounter Additional Health Concerns Assessment Noted Time PHQ-2 Depression Total Score: 0 06/23/19 25 2:17 PM EST documented as of this encounter Care Teams Smearer Relationship Specialty Start Date End Date Donell James MD [address] [place] [address], [address] [place] [address] PCP - General Family Medicine 04/02/17 Donell James MD [address] [place] [address], [address] [place] [address] Historical LMR Provider 02/23/17 Karina Barnett MD [address] [place] [address], [address] [place] [address] Historical LMR Provider 02/23/17 Frederic Blake, VIDEO GAME ENGINEER [address] [place] [address], [address] [place] [address] Historical LMR Provider 02/23/17 Kyrie Quesada MD [address] [place] [address], [address] [place] [address] Historical LMR Provider 02/23/17 documented as of this encounter Additional Source Comments The information contained in this document represents components of the legal health record. It is not the complete legal health record.[facility]
--- OUTSIDE RECORDS SUMMARY | 2025-01-22 14:51 | XMS_ITS | Clinical Summary ---
Author Organization [facility] Address [address] [place] [address] Phone Care Team Providers Care Immunology Teacher Name Role Phone Donell James MD Unavailable [phone] Karina Barnett MD Unavailable [phone] Frederic Blake AUTOMOTIVE BRAKE SPECIALIST Unavailable [phone] Kyrie Quesada MD Unavailable [phone] Donell James MD Primary Care Provider + [phone] Allergies Active Allergy Reactions Criticality Noted Date [...] Type Department Care Team Description 01/08/[address] [place] [address] Frederic Blake, CARLYLE Medication Refill 12/25/[address] [place] [address] Donell James MD Lab Orders (CT scheduled 01/22/25) 12/04/2024 4:30 PM EDT Office Visit [address] [place] [address] Donell James MD Localized swelling of chest wall (Primary Dx); Subacute cough; Malignant neoplasm of right female breast, unspecified estrogen receptor status, unspecified site of breast; Multiple pulmonary nodules 11/20/2024 Orders Only [address] [place] [address] ProviderKisha MD 11/17/[address] [place] [address] Charline Richey, RN Results 11/12/2024 9:45 AM EDT Office Visit [address] [place] [address] Kyrie Quesada MD Mastodynia (Primary Dx); Hx of breast cancer 11/12/[address] [place] [address] Grazyna Card RN urgent breast MRI 11/12/[address] [place] [address] Donell James MD Triage (Red call - soreness and tenderness at site of implant, very difficult to breath deeply without pain) 11/09/2024 Orders Only [address] [place] [address] Provider, MD Kisha from Last 3 Months [...] high school, GED, job training, learning the Bulgarian language, technical skills, or developing parenting skills)? [...] Industry Job Start Date Job End Date [facility] ED Not on file Not [...] PM EDT Abnormal imaging of intrathoracic organ CT CHEST Urgent/patient waiting 12/04/2024 4:59 PM [...] Recently Relevant to Health Maintenance Results * Basic metabolic panel (01/14/2025 2:35 PM EDT) Blood Kyrie Quesada MD LAB BLOOD ORDERABLES Final Res ult EXTERNAL NON-INTERFACED REF LAB * Outside Imaging Report Only (11/19/2024 10:45 [...] SEE NARRATIVE - 08/10/2024 1:52 PM EDT [address] [address] Manager Floor: Eric Still MD SOIL SAMPLER Cytology Report FINAL DIAGNOSIS A. PAP SMEAR (THIN PREP) CE: SPECIMEN ADEQUACY: Satisfactory for evaluation. INTERPRETATION: NEGATIVE FOR INTRAEPITHELIAL LESION OR MALIGNANCY. Atrophy. This specimen was analyzed by the automated ThinPrep Imaging System ([employer] and the selected arnett were reviewed by a yarn sizer. Electronically Signed Out By: ATNONIA Montalvo(ASCP) The Pap test is a screening test [...] by real-time polymerase chain reaction (PCR) at [facility], [address] [place] [address] using the FDA-approved BD Onclarity9 HPV Assay with extended genotyping. Uses of the assay in scenarios other than those approved by the FDA should be considered off-label use. The accuracy and precision of this test for all other off-label specimen sources has been verified in the Cytopathology Laboratory of the [facility] and has not been cleared or approved by the U.S. Food and Drug Administration. Clinical correlation is advised. The assay assesses the E6/E7 DNA target and utilizes human beta globin as an internal control. Cytology and HPV testing are screening assays and should not be used as the sole means of detecting cancer. False-positives and false-negatives can occur. CLINICAL HISTORY Date of Last Menstrual Period: Not Provided Menstrual History: Post Menopausal Other Clinical Conditions: Screening Pap SPECIMEN SOURCE A: PAP SMEAR (THIN PREP) CE Patient Name: VANESA SPAULDING : 1965 (Age: 58) Sex: F Institution[facility] Location: [facility] Date of Collection: 08/05/2024 Date of Reported: 08/10/2024 13:52 Results to: Shani Barrett MD Shani Barrett MD CYTOLOGY ORDERABLES Final Result Performing Organization Address City/[facility] de Phone Number SEE NARRATIVE * TSH with reflex (07/03/2024 3:21 PM EST) Blood Donell James MD LAB BLOOD ORDERABLES Final Result Performing Organization Address [facility] de Phone Number EXTERNAL NON-INTERFACED REF LAB * HM COLONOSCOPY FOR RESULT ENTRY ONLY (11/04/2020) Historical Provider HEALTH MAINTENANCE Edited Result - Final * Hepatitis C antibody, qualitative (06/20/2020 3:51 PM EST) HCV NON-REACTIV E NON-REACTI VE [facility] Blood 06/20/2020 3:51 PM EST 06/20/2020 3:54 PM EST Donell James MD LAB BLOOD ORDERABLES Final Result Performing Organization Address [facility] Co de Phone Number [address] [address] * (ABNORMAL) Lipid panel (05/09/2018 8:27 AM EST) HDL 92 mg/dL [facility] Comment: Interpretation <40 mg/dL: Low HDL cholesterol (major risk factor for CHD) Greater than or equal to 60 mg/dL: High HDL cholesterol ( negative risk factor for CHD) HDL - cholesterol is affected by a number of factors, e.g. smoking, excerise, hormones, sex and age. CHOLESTEROL 237 0 - 240 mg/dL [facility] TRIGLYCERIDES 83 30 - 160 mg/dL [facility] LDL 128 50 - 129 mg/dL [facility] Comment: LDL levels in terms of risk for coronary heart disease: <100 mg/dL: Optimal 100-129 mg/dL: Near or above optimal 130-159 mg/dL: Borderline high 160-189 mg/dL: High >190 mg/dL: Very High CARDIAC RISK RATIO 2.6(L) 3.3 - 4.4 C [facility] Blood 05/09/2018 8:27 AM EST 05/09/2018 8:29 AM EST us Donell James MD LAB BLOOD ORDERABLES Final Result Performing Organization Address City/State/[facility] Co de Phone Number [facility] [address] [place] [address] from Last 3 Months or Most Recently Relevant to Health Maintenance Insurance [employer] Member Subscriber Plan / Payer (Ef fective 2019-Present) Name:Vanesa Spaulding Relation to Subscriber:Self Name:Vanesa Spaulding Payer ID:[id number] (NA) Type:PPO Address: [place] [phone] [employer] AD[employer]ISTRATORS [employer] Member Subscriber Plan / Payer (Ef fective 2019-Present) Name:Vanesa Spaulding Relation to Subscriber:Self Name:Vanesa Spaulding Payer ID:[id number] (NA) Type:PPO Address: [place] [phone] [employer] BENEFITS ADMINISTRATORS [email or web address]EF[employer]MINISTRAT[employer] BENEFITS ADMINISTRATORS Care Teams Immunology Teacher Relationship Specialty Start Date End Date Donell James MD [address] [place] [address], [address] [place] [address] PCP - General Family Medicine 04/02/17 Donell James MD [address] [place] [address], [address] [place] [address] Historical LMR Provider 02/23/17 Karina Barnett MD [address] [place] [address], [address] [place] [address] Historical LMR Provider 02/23/17 Frederic Blake, CARLYLE [address] [place] [address], [address] [place] [address] Historical LMR Provider 02/23/17 Kyrie Quesada MD [address] [place] [address], [address] [place] [address] [email or web address] Historical LMR Provider 02/23/17 Additional Source Comments The information contained in this document represents components of the legal health record. It is not the complete legal health record.[facility]
[2025-01-22] MEDS: iohexoL 350 MG/ML 100 ML INFUS..BTL IV (15:16)
== END 2025-01-22 14:50 | disposition home or self-care (01) ==
LOC: HO.CT 14:49
PROVIDERS: PCP Family Medicine; Visit Provider Family Medicine
DX: R05.2 Subacute cough (principal); R91.8 Other nonspecific abnormal finding of lung field; C50.911 Malignant neoplasm of unspecified site of right female breast
CPT/HCPCS: 71260; Q9967

== ENCOUNTER → 2025-01-22 14:57 | Outpatient (BNV) | payer OTHER, SELFPAY | PROVIDERS: PCP Family Medicine; Visit Provider Radiology Diagnostic Radiology | DX: R91.8 Other nonspecific abnormal finding of lung field (principal); R05.8 Other specified cough | CPT/HCPCS: 71260 ==

== ENCOUNTER 2025-01-25 08:07 | Outpatient (REF) | payer OTHER, SELFPAY ==
--- OUTSIDE RECORDS SUMMARY | 2023-09-18 12:00 | XMS_ITS ---
Author Organization [facility] Address [address] [place] [phone] Care Team Providers Care Mac Developer Name Role Phone Jacob DIAZ, Donell Primary Care Provider Kali Elias [phone] Queta Motta Unavailable Unavailable REASON FOR VISIT Patient presents today for abdominal pain Encounters Encounter Location Date Provider Diagnosis [facility] [address] [place] [phone] 09/18/2023 Kali Neri Plan Of Treatment No Information Progress Notes * MARY SPAULDING ADOB: [birth year] (59 yo F)Acc No.[id number]:09/18/2023 Progress Notes Patient: MARY MATTHEWS Provider: Mariely Neri MD :1965 A ge:57 Y S ex:Female Date:09/18/2023 Address:[address] [place], [place] [phone] Pcp:Donell James MD Subjective: * Chief Complaints: [...] Generated for Anishai mary ann/Faxing/eTransmitting on: 0 01/25/2025 09:56 AM EDT
--- OUTSIDE RECORDS SUMMARY | 2023-11-08 04:20 | XMS_ITS ---
Author Organization [facility] Address [address] [place] [address] Care Team Providers Care Title Clerk Name Role Phone Donell aJmes MD Primary Care Provider Kali Elias Unavailable [phone] Queta Motta Unavailable Unavailable Encounters Encounter Location Date Provider Diagnosis [facility] [place] Out[place] [address] [place] [address] [id number] 11/08/2023 Kali Neri Hiatal hernia K44. 9 and Abdominal pain R10.9 Assessments Encounter Date Diagnosis (ICD Code) Assessment Notes Treatment Notes Treatment Clinical Notes Section Notes 11/08/2023 Hiatal hernia (ICD-10 - K44.9) 11/08/2023 Abdominal pain (ICD-10 - R10.9) Plan Of Treatment No Information Progress Notes * MARY SPAULDING ADOB: [birth year] (59 yo F)Acc No.[id number]:11/08/2023 EGD/MAC Patient: MARY MATTHEWS Provider: Mariely Neri MD :1965 A ge:57 Y S ex:Female Date:11/08/2023 Address:[address] [place] [address] Pcp:Donell James MD Subjective: * Chief Complaints: [...] Date: 11/08/2023 Generated for Deshawn reese/Rosas/Kareenitting on: 01/25/2025 09:56 AM EDT
--- OUTSIDE RECORDS SUMMARY | 2025-01-25 09:56 | XMS_ITS | Encounter Summary ---
Author Organization [facility] Address [address] [place] [address] [place] [address] Phone Care Team Providers Care Editor Map Name Role Phone Donell James MD Unavailable [phone] Karina Barnett MD Unavailable [phone] Frederic Blake CEMENTER [employer]IL WELL Unavailable [phone] Kyrie Quesada MD Unavailable [phone] Donell James MD Primary Care Provider + [phone] Reason for Visit * Reason Onset Date Comments Results 11/17/2024 Encounter Details Date Type Department Care Team (Late st Contact Info) Description 11/17/2024 Telephone [address] [address] Charline Richey, RN [address] [place], [place] [id number] [email or web address] Results Social History Tobacco Use Types Packs/Day [...] high school, GED, job training, learning the Ghanaian language, technical skills, or developing parenting skills)? [...] Industry Job Start Date Job End Date [employer] ED Not on file Not on [...] Received: Yesterday Kyrie Quesada MD P [facility] Rn Cc: Donell James MD Notify [...] documented as of this encounter Care Teams Editor Map Relationship Specialty Start Date End Date Donell James MD [address] [place] [address], [address] [address] PCP - General Family Medicine 04/02/17 Donell James MD [address] [place] [address], [address] [address] Historical LMR Provider 02/23/17 Karina Barnett MD [address] [place] [address], [address] [address] Historical LMR Provider 02/23/17 Frederic Blake, [employer] [address] [place] [address], [address] [place] [address] [email or web address] Historical LMR Provider 02/23/17 Kyrie Quesada MD [address] [place] [address], [address] [place] [address] [email or web address] Historical LMR Provider 02/23/17 documented as of this encounter Additional Source Comments The information contained in this document represents components of the legal health record. It is not the complete legal health record.[facility]
--- OUTSIDE RECORDS SUMMARY | 2025-01-25 09:56 | XMS_ITS | Encounter Summary ---
Author Organization [facility] Address [address] [place] [address] Phone Care Team Providers Care Otc Clerk Name Role Phone Leena Stanford NP Unavailable [phone] Donell James MD Unavailable [phone] Karina Barnett MD Unavailable [phone] Laverne Ribera SIGNALMAN Unavailable Laverne Nguyen MD Unavailable [phone] Anderson Luciano SIGNALMAN Unavailable Frederic Blake HOSPITALITY INTERN Unavailable [phone] Briana Wild SIGNALMAN Unavailable Suzanne Valera MD Unavailable [phone] Kyrie Quesada MD Unavailable [phone] Elvis Wetzel HOSPITALITY INTERN Unavailable Dolores Meyer MD Unavailable [phone] Kali No MD Unavailable [phone] Donell James MD Primary Care Provider + [phone] Encounter Details Date Type Department Care Team (Late st Contact Info) Description 02/07/2019 EpicOnHand Encounter [facility] [address] [place] [address] Kyrie Quesada MD [address] [facility], [address] [place], [place] [id number] [email or web address] Social History Tobacco Use [...] Industry Job Start Date Job End Date [employer] ED Not on file Not on file Not on file documented as of this encounter Progress Notes * Kyrie Quesada MD - 02/07/2019 10:35 AM EDT Patient calls to report rash and hives 4 days following completion of cefuroxime. She reports no new soaps, detergents, skin care products. She recently returned from travel to [place]. The timing for allergy to medication is [...] documented as of this encounter Care Teams Otc Clerk Relationship Specialty Start Date End Date Donell James MD [address] [place] [address], [address] [place] [address] PCP - General Family Medicine 04/02/17 Leena Stanford NP [address] [place] [address] Historical LMR Provider 02/23/17 2 Donell James MD [address] [place] [address], [address] [place] [address] Historical LMR Provider 02/23/17 Karina Barnett MD [address] [place] [address], [address] [place] [address] Historical LMR Provider 02/23/17 Laverne Ribera SIGNALMAN [address] [place] [address] Historical LMR Provider 02/23/17 05/13/21 Laverne Nguyen MD [address] [place] [address] [email or web address] Historical LMR Provider 02/23/17 05/13/21 Anderson Luciano, SIGNALMAN [address] [place] [address] 2_[place] [address] [email or web address] Historical LMR Provider 02/23/17 05/13/21 Frederic Blake CNP [address] [place] [address], [address] [place] [address] [email or web address] Historical LMR Provider 02/23/17 Briana Wild, JENNIFER [address] [place] [address] Historical LMR Provider 02/23/17 2 Suzanne Valera MD [address] [place] [address] Historical LMR Provider 02/23/17 2 Kyrie Quesada MD [address] [place] [address], [address] [place] [address] Historical LMR Provider 02/23/17 Elvis Wetzel HOSPITALITY INTERN [address] [place] [address], [address] [place] [address] Historical LMR Provider 02/23/17 05/13/21 Dolores Meyer MD [address] [place] [address] Historical LMR Provider 02/23/17 2 Kali No MD [address] [place] [address] Orthopedics [facility] Medicine, [place] [address] [email or web address] Historical LMR Provider 02/23/17 2 documented as of this encounter Additional Source Comments The information contained in this document represents components of the legal health record. It is not the complete legal health record.[facility]
--- OUTSIDE RECORDS SUMMARY | 2025-01-25 09:56 | XMS_ITS | Encounter Summary ---
Author Organization [facility] Address [address] [place] [address] [place] [address] Phone Care Team Providers Care Soil Science Technical Officer Name Role Phone Donell James MD Unavailable [phone] Karina Barnett MD Unavailable [phone] Frederic Blake COMPTOMETRIST Unavailable [phone] Kyrie Quesada MD Unavailable [phone] Donell James MD Primary Care Provider + [phone] Reason for Visit * Reason Onset Date Comments Lab Orders 12/25/2024 CT scheduled 01/04 01/28 Encounter Details Date Type Department Care Team (Late st Contact Info) Description 12/25/2024 Telephone [facility] [address] [address] Donell James MD 22 [facility], [address] [place], [place] [id number] [email or web address] Lab Orders (CT scheduled 01/22/25) Social History [...] high school, GED, job training, learning the Slovak language, technical skills, or developing parenting skills)? [...] Industry Job Start Date Job End Date [facility] ED Not on file Not on file Not on file documented as of this encounter Progress Notes * Kyrie Quesada MD - 01/25/2025 7:52 AM EDT Normal labs. * Tania Martinez - 01/22/2025 9:56 AM EDT Patient notified of labs results as per provider requested. Pt verbalized understand. * Alycia Del Rosario RN - 12/28/2024 9:22 AM EDT Faxed via rightfax to [facility] * Kyrie Quesada MD - 12/25/2024 5:21 PM EDT Order signed, please fax to [facility] * Ana Laura Ghosh LPN - 12/25/2024 1:42 PM EDT Received faxed request for lab work. Patient has a CT scheduled and needs BMP Orders will need to be faxed to [facility] once signed. documented in this encounter Plan [...] documented as of this encounter Care Teams Soil Science Technical Officer Relationship Specialty Start Date End Date Donell James MD [address] [place] [address], [address] [place] [address] PCP - General Family Medicine 04/02/17 Donell James MD [address] [place] [address], [address] [place] [address] Historical LMR Provider 02/23/17 Karina Barnett MD [address] [place] [address], [address] [place] [address] Historical LMR Provider 02/23/17 Frederic Blake, COMPTOMETRIST [address] [place] [address], [address] [place] [address] Historical LMR Provider 02/23/17 Kyrie Quesada MD [address] [place] [address], [address] [place] [address] Historical LMR Provider 02/23/17 documented as of this encounter Additional Source Comments The information contained in this document represents components of the legal health record. It is not the complete legal health record.[facility]
--- OUTSIDE RECORDS SUMMARY | 2025-01-25 09:57 | XMS_ITS | Clinical Summary ---
Author Organization [facility] Address [address] [place] [address] Phone Care Team Providers Care Patrol Police Sergeant Name Role Phone Donell James MD Unavailable [phone] Karina Barnett MD Unavailable [phone] Frederic Blake RN EXAMINER Unavailable [phone] Kyrie Quesada MD Unavailable [phone] Donell James MD Primary Care Provider + [phone] Allergies Active Allergy Reactions Criticality Noted Date [...] Type Department Care Team Description 01/08/[address] [place] [address] Frederic Blake, CARLYLE Medication Refill 12/25/[address] [place] [address] Donell James MD Lab Orders (CT scheduled 01/22/25) 12/04/2024 4:30 PM EDT Office Visit [address] [place] [address] Donell James MD Localized swelling of chest wall (Primary Dx); Subacute cough; Malignant neoplasm of right female breast, unspecified estrogen receptor status, unspecified site of breast; Multiple pulmonary nodules 11/20/2024 Orders Only [address] [place] [address] ProviderKisha MD 11/17/[address] [place] [address] Charline Richey, RN Results 11/12/2024 9:45 AM EDT Office Visit [address] [place] [address] Kyrie Quesada MD Mastodynia (Primary Dx); Hx of breast cancer 11/12/[address] [place] [address] Grazyna Card RN urgent breast MRI 11/12/[address] [place] [address] Donell James MD Triage (Red call - soreness and tenderness at site of implant, very difficult to breath deeply without pain) 11/09/2024 Orders Only [address] [place] [address] Provider, MD Kisha from Last 3 Months [...] high school, GED, job training, learning the Irish language, technical skills, or developing parenting skills)? 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 PAP SMEAR (THIN PREP) CE: SPECIMEN ADEQUACY: Satisfactory for evaluation. INTERPRETATION: NEGATIVE FOR INTRAEPITHELIAL LESION OR MALIGNANCY. Atrophy. This specimen was analyzed by the automated ThinPrep Imaging System ([employer] and the selected arnett were reviewed by a technology specialist. Electronically Signed Out By: ANTONIA Montalvo(ASCP) The Pap test is a screening [...] by real-time polymerase chain reaction (PCR) at [facility], [address] [place] [address] using the FDA-approved BD Onclarity9 HPV Assay with extended genotyping. Uses of the assay in scenarios other than those approved by the FDA should be considered off-label use. The accuracy and precision of this test for all other off-label specimen sources has been verified in the Cytopathology Laboratory of the [facility] and has not been cleared [...] : 1965 (Age: 58) Sex: F Institution: [facility] Location: [facility] Date of Collection: 08/05/2024 Date of Reported: 08/10/2024 13:52 Results to: Shani Barrett MD Shani Barrett MD CYTOLOGY ORDERABLES Final Result Performing Organization Address City/[facility] de Phone Number SEE NARRATIVE * TSH with reflex (07/03/2024 3:21 PM EST) Blood Donell James MD LAB BLOOD ORDERABLES Final Result Performing Organization Address [facility] de Phone Number EXTERNAL NON-INTERFACED REF LAB * HM COLONOSCOPY FOR RESULT ENTRY ONLY (11/04/2020) Historical Provider HEALTH MAINTENANCE Edited Result - Final * Hepatitis C antibody, qualitative (06/20/2020 3:51 PM EST) HCV NON-REACTIV E NON-REACTI VE [facility] Blood 06/20/2020 3:51 PM EST 06/20/2020 3:54 PM EST Donell James MD LAB BLOOD ORDERABLES Final Result Performing Organization Address [facility] Co de Phone Number [address] [address] * (ABNORMAL) Lipid panel (05/09/2018 8:27 AM EST) HDL 92 mg/dL [facility] Comment: Interpretation <40 mg/dL: Low HDL cholesterol (major risk factor for CHD) Greater than or equal to 60 mg/dL: High HDL cholesterol ( negative risk factor for CHD) HDL - cholesterol is affected by a number of factors, e.g. smoking, excerise, hormones, sex and age. CHOLESTEROL 237 0 - 240 mg/dL [facility] TRIGLYCERIDES 83 30 - 160 mg/dL [facility] LDL 128 50 - 129 mg/dL [facility] Comment: LDL levels in terms of risk for coronary heart disease: <100 mg/dL: Optimal 100-129 mg/dL: Near or above optimal 130-159 mg/dL: Borderline high 160-189 mg/dL: High >190 mg/dL: Very High CARDIAC RISK RATIO 2.6(L) 3.3 - 4.4 C [facility] Blood 05/09/2018 8:27 AM EST 05/09/2018 8:29 AM EST us Donell James MD LAB BLOOD ORDERABLES Final Result Performing Organization Address City/State/[facility] Co de Phone Number [facility] [address] [place] [address] from Last 3 Months or Most Recently Relevant to Health Maintenance Insurance [employer] Member Subscriber Plan / Payer (Ef fective 2019-Present) Name:Vanesa Spaulding Relation to Subscriber:Self Name:Vanesa Spaulding Payer ID:[id number] (NA) Type:PPO Address: [place] [phone] [employer] Member Subscriber Plan / Payer (Ef fective 2019-Present) Name:Vanesa Spaulding Relation to Subscriber:Self Name:Vanesa Spaulding Payer ID:[id number] (NA) Type:PPO Address: [place] [id number] [employer]EF[employer]MINIST[employer]AT[employer] BENEFITS ADMINISTRATORS Care Teams Patrol Police Sergeant Relationship Specialty Start Date End Date Donell James MD [address] [place] [address], [address] [place] [address] PCP - General Family Medicine 04/02/17 Donell James MD [address] [place] [address], [address] [place] [address] Historical LMR Provider 02/23/17 Karina Barnett MD [address] [place] [address], [address] [place] [address] Historical LMR Provider 02/23/17 Frederic Blake, CARLYLE [address] [place] [address], [address] [place] [address] Historical LMR Provider 02/23/17 Kyrie Quesada MD [address] [place] [address], [address] [place] [address] [email or web address] Historical LMR Provider 02/23/17 Additional Source Comments The information contained in this document represents components of the legal health record. It is not the complete legal health record.[facility]
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
[2025-01-25 13:05] LABS: Resp Syncy Virus RNA Qual PCR NEGATIVE (Negative); SARS COV2 PCR INHOUSE NEGATIVE (Negative)
== END 2025-01-25 08:08 | disposition home or self-care (01) ==
LOC: HO.LAB 08:07
PROVIDERS: Nurse Practitioner Family; PCP Family Medicine
DX: J06.9 Acute upper respiratory infection, unspecified (principal); Z87.891 Personal history of nicotine dependence; Z20.822 Contact with and (suspected) exposure to COVID-19
CPT/HCPCS: 87637

== ENCOUNTER 2025-01-25 08:07 | Outpatient (AMB) | payer OTHER, SELFPAY ==
[2025-01-25 08:18] VITALS: BP 120/78; PULSE 74; TEMP 36.7; O2SAT 99
--- NOTE | 2025-01-25 08:18 | AM.OFFWIN_ITS ---
Intake Vital Signs 01/25/25 08:18 Height 5 ft 6 in BMI Reason not done Patient refused/unable BP 120/78 Blood Pressure Location Lt brachial Position Sitting Pulse 74 Pulse Source Pulse Oximeter Temp 98.1 F Temp Source Oral Pulse Oximetry (%) 99 Oxygen Delivery Method Room Air Intake Visit Reasons: EP Covid symptoms/covid exposed Patient Tobacco Use Status: Former Tobacco user Allergies ketamine Allergy (Severe, Verified 01/25/25 08:19) Hallucinations amoxicillin (AMOXICILLIN) Allergy (Intermediate, Verified 01/25/25 08:19) hives/rash Penicillins (PENICILLINS) Allergy (Intermediate, Verified 01/25/25 08:19) hives/rash Do you need a note to return to daycare/school/sports/work: Yes HPI HPI Comments History of Present Illness Details 59 y/o Female patient who presents to [facility] for COVID-19 testing. Pt was exposed to COVID infection over the weekend - her grand-daughter tested positive. Pt reports mild headaches and sinus congestion. Denies fevers, chills, nausea or vomiting. [facility] Medical History (Updated 12/18/24 @ 13:36 by Lauren Torres [facility]) Chest wall muscle strain Chest wall contusion COPD (chronic obstructive pulmonary disease) Osteoporosis Fracture of greater tuberosity of right humerus Breast cancer GERD (gastroesophageal reflux disease) Depression Fracture of 5th metatarsal Hypothyroid History of breast cancer Surgical History Hx of hand surgery Hx of tonsillectomy Hx of appendectomy Hx of breast reconstruction Hx of bilateral mastectomy Hx of cataract extraction History of esophagogastroduodenoscopy (EGD) H/O colonoscopy History of arthroplasty of left knee Family History Other No family history of cancer Social History Household Members: Significant Other Housing: Apartment Are you a primary healthcare associate to a significant other at home: No Do you presently have visiting nurse or other home services: No Alcohol intake: never Patient Tobacco Use Status: Former Tobacco user Tobacco use type: Cigarette service: No Current occupational status: employed 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 Review of Systems Const All systems reviewed & are unremarkable except as noted in HPI and below Physical Exam Vital Signs: Last Vital Signs Temp 98.1 F 01/25/25 08:18 Pulse 74 01/25/25 08:18 BP 120/78 01/25/25 08:18 Pulse Ox 99 01/25/25 08:18 Oxygen Delivery Method Room Air 01/25/25 08:18 Const General: no acute distress Nutritional Appearance: well nourished Orientation/consciousness: patient oriented x3 HEENT Head: Yes normocephalic Ears: external ears normal and TM's normal bilaterally General nose exam: Normal external nose present and Nasal discharge present Face and sinus: Yes sinuses nontender Mouth: moist mucous membranes Throat: Yes uvula midline Resp Effort & Inspection: normal respiratory effort and able to speak in complete sentences Auscultation: clear to auscultation bilaterally, no crackles, no rales, no rhonchi and no wheezes Cardio Heart sounds: S1 normal heart sound present and S2 normal heart sound present Neuro General: patient oriented x3 Assessment & Plan Assessment & Plan (1) URI (upper respiratory infection): Code(s): J06.9 - Acute upper respiratory infection, unspecified Qualifiers: URI type: unspecified viral URI Qualified Code(s): J06.9 - Acute upper respiratory infection, unspecified Plan: SARs Ordered. OTC remedies. Acetaminophen for pain relief. Orders: Orders SARS-CoV2/FLU/RSV Today J06.9 - Acute upper respiratory infection, unspecified Coding Level of Care Code Est Pt Level 4 (82546) Diagnoses Viral upper respiratory tract infection J06.9 URI type: unspecified viral URI Time Spent (min) 20
== END 2025-01-25 08:57 | disposition home or self-care (01) ==
PROVIDERS: PCP Family Medicine; Visit Provider Nurse Practitioner Family
DX: J06.9 Acute upper respiratory infection, unspecified (principal)